=== PATIENT | female | born 1955 | race Caucasian/White ===

== ENCOUNTER 2019-07-09 14:07 | Outpatient (CLI) | payer BC ==
[~2019-07-09] VITALS: Ht 172 cm; Wt 126.9 kg
[2019-07-09] MEDS ORDERED: AMLO5TAB9 PO (14:18)
[2019-07-09] MEDS ORDERED: PRAV40TA2 PO (14:18)
[2019-07-09] MEDS ORDERED: VILA40TA PO (14:18)
[2019-07-09] MEDS ORDERED: INSU100V37 SQ (14:18)
[2019-07-09] MEDS ORDERED: DULA1.5P2 SQ (14:18)
[2019-07-09] MEDS ORDERED: HYDR12.56 PO (14:18)
[2019-07-09] MEDS ORDERED: FENO145T26 PO (14:18)
[2019-07-09] MEDS ORDERED: LOSA50TA63 PO (14:18)
[2019-07-09 14:21] VITALS: BP 119/63
== END 2019-07-09 15:30 | disposition home or self-care (01) ==
LOC: PREOP 14:07
PROVIDERS: ATTEND Podiatrist Foot Surgery
DX: Z01.818 Encounter for other preprocedural examination (principal)
CPT/HCPCS: 87081

== ENCOUNTER 2019-07-18 06:11 | Day surgery (SDC) | payer BC, OTHER ==
--- NOTE | 2019-07-15 00:14 | HISTORY AND PHYSICAL ---
DATE OF SERVICE: CHIEF COMPLAINT: To have outpatient surgery by Dr. gAosto, bone spur, left foot. ALLERGIC TO MEDICATIONS: Denies. MEDICATIONS: Medications now on, pravastatin 40 mg, Trulicity 1.5/0.05 injection weekly, Tresiba 100 units, Viibryd 40 mg, fenofibrate 145 mg, amlodipine 5 mg, hydrochlorothiazide 12.5, losartan 50 mg. Has a CPAP machine setting 15. PAST SURGICAL HISTORY: Complete hysterectomy in 1988 tonsils at age 7, gallbladder 2007, numerous kidney stones on both sides, had lithotripsy. FAMILY HISTORY: Denies asthma, TB, diabetes, heart disease, lung disease or cancer. REVIEW OF SYSTEMS: HEAD: Admits to headache. Denies dizziness, fainting, has sleep apnea and uses a CPAP. EYES, EARS, NOSE AND THROAT: Denies diplopia, tinnitus and sore throat. RESPIRATORY: Denies asthma, TB, coughing and congestion. The patient admits to smoking; told to stop. CARDIOVASCULAR: Denies heart problems, chest pain and heart murmur. GASTROINTESTINAL: Appetite too much. Denies blood in stools, diarrhea or constipation, also vomiting. Hemoglobin A1c is 6.2. GENITOURINARY: Denies blood, pain or frequency. PHYSICAL EXAMINATION: GENERAL: The patient is a white female, well nourished, well developed and in no acute respiratory distress at rest. VITAL SIGNS: Pulse 72, blood pressure 130/80 and weight 281. EARS: No discharge. EYES: No conjunctivitis or icterus. THROAT: Noninflamed. NECK: Thyroid not enlarged. No abnormal cervical lymphadenopathy noted. HEART: Regular rate and rhythm. LUNGS: Clear to auscultation. ABDOMEN: Soft. Liver and spleen nonpalpable. EXTREMITIES: Has good dorsalis pulses. PLAN: The patient is okay to have surgery, will be on standby if has any problems. Job ID: [id number] DocumentID: [id number] Dictated Date: 07/14/2019 15:17:31 Legal Administrative Secretary Date: 07/14/2019 15:32:56 Dictated By: MICKEY EUGENE DO
[2019-07-18] VITALS (10 sets, daily range): BP systolic 105–145; BP diastolic 64–91
[~2019-07-18] VITALS: Ht 172 cm; Wt 126.9 kg
[~2019-07-18 06:11] MED LIST: AMLO5TAB9 PO; DULA1.5P2 SQ; FENO145T26 PO; HYDR12.56 PO; INSU100V37 SQ; LOSA50TA63 PO; PRAV40TA2 PO; VILA40TA PO
[2019-07-18] MEDS ORDERED: LACTATED RINGERS 1,000 ML IV PRN (06:44)
[2019-07-18] MEDS ORDERED: ceFAZolin INJECTION 1,000 MG in WATER (STERILE) FOR INJECTION 10 ML IV ONE (06:45)
[2019-07-18] MEDS ORDERED: CATHETER FLUSH 10 ML SYR IV PRN (07:00)
[2019-07-18] MEDS ORDERED: MEPIVACAINE (CARBOCAINE) 2% 50 ML VIAL ONE (07:11)
[2019-07-18] MEDS ORDERED: BUPIVACAINE 0.5% 30 ML (SENSORCAINE) VIAL ONE (07:12)
--- NOTE | 2019-07-18 07:38 | Progress Note-Pre Operative ---
Pre-Operative Progress Note H&P Reviewed The H&P was reviewed, patient examined and no changes noted. Date Seen by Provider: Jul 18, 2019 Time Seen by Provider: 07:31 Date H&P Reviewed: Jul 18, 2019 Time H&P Reviewed: 07:32 Pre-Operative Diagnosis: dorsal tarsal exostosis left foot MICKEY CHAVIRA DPM Jul 18, 2019 07:38
[2019-07-18] MEDS ORDERED: MIDAZOLAM 2 MG/2 ML (VERSED) VIAL ONE (07:41)
[2019-07-18] MEDS ORDERED: KETAMINE/NaCl 50 MG/5 ML SYRINGE (ED ONLY) ONE (07:43)
[2019-07-18] MEDS ORDERED: PROPOFOL INJECTION 50 ML IV ONE (08:06)
[2019-07-18] MEDS ORDERED: SEVOFLURANE (ULTANE) 15 ML INHAL SOLN ONE ×3 (08:06→08:50)
[2019-07-18] MEDS ORDERED: fentaNYL INJECTION 100 MCG/2 ML AMP ONE (08:12)
[2019-07-18] MEDS ORDERED: DEXAMETHASONE 10 MG/ML (DECADRON) 1 ML VIAL ONE (08:23)
[2019-07-18] MEDS ORDERED: ONDANSETRON 4 MG/2 ML (SDV) Z0FRAN ONE (08:50)
[2019-07-18] MEDS ORDERED: LACTATED RINGERS 1,000 ML IV SCH (08:50)
--- NOTE | 2019-07-18 08:50 | Progress Note-Post Operative ---
Post-Operative Progess Note Surgeon (s)/Roofing Laborer (s) Surgeon MICKEY CHAVIRA DPM Roofing Laborer: NONE Pre-Operative Diagnosis dorsal tarsal exostosis left foot Post-Operative Diagnosis SAME Procedure & Operative Findings Date of Procedure 07/18/19 Procedure Performed/Findings BONE SPUR LEFT FOOT Anesthesia Type GENERAL WITH INFILTRATION Estimated Blood Loss Estimated blood loss (mL): MIN Specimens/Packing Specimens Removed NONE Packing: NONE MICKEY CHAVIRA DPM Jul 18, 2019 08:49
[2019-07-18] MEDS ORDERED: HYDROcodone/APAP 5 MG/325 MG (LORTAB) TAB PO PRN (09:00)
[2019-07-18] MEDS ORDERED: HYDR-3870 PO (09:01)
--- NOTE | 2019-07-18 09:53 | Diagnostic Imaging Report ---
INDICATION: Postoperative evaluation COMPARISON: None available TECHNIQUE: 2 radiographs of the left foot dated 07/18/2019. FINDINGS: No acute fracture or dislocation. No destructive osseous process. Mild scattered degenerative changes, greatest involving the 1st MTP joint. Mild soft tissue gas is noted involving the dorsal aspect of the midfoot. Moderate sized posterior and plantar calcaneal enthesophytes. No suspicious radiopaque foreign body. IMPRESSION: 1. No acute osseous abnormality or suspicious radiopaque foreign body. 2. Soft tissue gas involving the dorsum of the midfoot, which is favored to be postsurgical in nature. No suspicious radiopaque foreign body. 3. Additional findings, as above. Dictated by: Dictated on workstation # [id number]
--- NOTE | 2019-07-18 11:31 | Anesthesia-General Post-Op ---
General Patient Condition Mental Status/LOC: Same as Preop Cardiovascular: Satisfactory Nausea/Vomiting: Absent Respiratory: Satisfactory Pain: Controlled Complications: Absent Post Op Complications Complications None Follow Up Care/Instructions Patient Instructions None needed. Anesthesia/Patient Condition Patient Condition Patient is doing well, no complaints, stable vital signs, no apparent adverse anesthesia problems. No complications reported per nursing. KOFFI HELM CRNA Jul 18, 2019 11:31
--- NOTE | 2019-07-18 11:40 | Physical Therapy Ortho Eval ---
PT Orthopedic Evaluation Type of Surgery dorsal tarsal exostosis left foot Prior Level of Function Current Living Status: Spouse Locomotion (Upon Admit): Independent Established Durable Medical Eq: Straight Cane Subjective Subjective Patient sitting EOB pre tx, agrees to PT, has 5/10 pain in left foot. WBAT LLE Entry Into Home: Stairs Without Railing Steps Into Home: 2 Motor Control Motor Control: Motor Control WNL ROM ROM: WFL Transfer Transfers (B, C, W/C) (FIM): 4 Gait Right Lower Extremity: Right Weight Bearing Status RLE: Weight Bearing/Tolerated Left Lower Extremity: Left Weight Bearing Status LLE: Weight Bearing/Tolerated Summary/Comments Patient ambulated 200' without an assistive device with SBA, she has a slight limp but otherwise ambulated without difficulty. Advised patient to use a SPC at home. Patient also went up and down 1 step without an assistive device with SBA and cues for foot placement. Treatment Rendered Treatment: Therapeutic Exercises, Gait Train, Step Train Exercise Instruction: Heel Slides, Ankle Pumps Assessment/Goals Goal Time Frame: 1 Visit Understands HEP: Yes Safe Ambulation: Yes Plan Treatment Plan: Discharge PT/Family Agrees to Plan: Yes Time Time In: 1101 Time Out: 1110 Total Billed Treatment Time: 9 Billed Treatment Time 1 visit ABISAI Rodriguez' POOJA SEGOVIA PT Jul 18, 2019 11:40
--- NOTE | 2019-07-18 14:02 | OPERATIVE REPORT ---
DATE OF SERVICE: 07/18/2019 PREOPERATIVE DIAGNOSIS: Dorsal metatarsal cuneiform exostosis and/or tarsal bossing, left foot. POSTOPERATIVE DIAGNOSIS: Dorsal metatarsal cuneiform exostosis and/or tarsal bossing, left foot. NAME OF OPERATION: Exostectomy and excision of tarsal bossing, left foot. DESCRIPTION OF PROCEDURE: With the patient in supine position, having been affected by regional anesthetic utilizing 9 mL of a 50:50 mixture of 0.5% Marcaine plain and 1% Carbocaine plain with anesthesia assist that converted to general. Sterile prep and drape were performed. Phil bandage was applied above the level of the left ankle. A 6 cm curvilinear incision was made over the dorsal aspect of the second metatarsal cuneiform articulation. This incision was deepened with blunt dissection. Vital structures identified and retracted. Dissection was carried deep to the capsular structures and capsule and periosteum were reflected medially and laterally. There was a well-developed dorsal exostosis that was noted at the second cuneiform and second metatarsal base. This was resected in toto and remaining bone surface rasped smooth. The area was flushed with copious amounts of saline, inspected for any other anatomical abnormalities, none were noted. Deep closure was accomplished via continuous suture, 4-0 Vicryl. Superficial fascia closed with continuous suture of 4-0 Vicryl and skin closed with continuous subcuticular suture of 4-0 Vicryl and Dermabond. Adaptic and a sterile corrective compressive wet to dry Betadine dressing were applied, carried above the level of the left ankle covered with circular Coban. The patient tolerated the procedure well with minimal blood loss, left the OR to PAR in apparent good condition. She was also given Decadron into the operative site to control postoperative pain and swelling. She was given Rx for Lortab 5, #21 q.4-6 hours p.r.n. foot pain, is to be seen in the office in two weeks for appropriate followup care. Job ID: [id number] DocumentID: [id number] Dictated Date: 07/18/2019 08:58:56 Utility System Repairer Date: 07/18/2019 14:01:53 Dictated By: MICKEY CHAVIRA DPM
--- OUTSIDE RECORDS SUMMARY | 2019-07-19 22:40 | XMS REPORT | CCD ---
Author Author HARPREET CASPER Organization Unknown Address [address] [place], [place] [id number] Care Team Providers Care Physician Office Secretary Name Role Phone LISA RODAS DO [place] Attphys Vital Signs Vital Sign Value Unit Date/Time Recent/I nitial? Weight Measured 300 lbs 01/13/2016 13:14 Initial VS Height 68 in 01/13/2016 13:14 Initi al VS BMI (Body Mass Index) 45.61 kg/m^2 01/13/2016 13 :14 Initial VS BSA (Body Surface Area) 2.56 m^2 01/13/2016 13:14 Initial VS Allergies Allergy Code Allergy Type Reaction Status No Known Allergies 0 No known allergies Active Procedures Procedure Code Procedure Type Date Esophagogastroduodenoscopy, flexible, tr ansoral; with biopsy, [place] 39920 CPT 01/24/2016 Colonoscopy, flexible; with biopsy, single or multiple 54434 CPT 01/24/2016 Colonoscopy, flexible; with removal of t umor(s), polyp(s), or other lesion 59435 CPT 01/24/2016 BLOOD COLLECTION [id number] [facility] 6 PATHOLOGY ORDER [id number] [facility] CT 01/24/2016 BASIC METABOLIC PANEL [id number] [facility] CT 01/05 CBC W/ AUTO DIFF (RFLX MAN DIFF IF IND) [id number] [facility] 01/24/2016 ^CBC W/AUTO DIFF [id number] [facility] 6 History of Immunizations Unknown or Not Available. Problems Unknown or Not Available. Results BASIC METABOLIC PANEL - Collect Date/Keyshawn e: 01/24/2016 09:15 Test Name Code Test Result Test Units Beata t Ref Range GLUCOSE 2345-7 140 MG/DL L=70 H=1 00 SODIUM 2951-2 141 MEQ/L L=135 H=14 8 POTASSIUM 2823-3 3.7 MEQ/L L=3.5 H =5.3 CHLORIDE 2075-0 102 MEQ/L L=96 H= 110 CO2 2028-9 29 MEQ/L L=22 H=29 BUN 3094-0 12 MG/DL L=8 H=22 CREATININE 2160-0 0.9 MG/DL L=0.6 H=1.6 CALCIUM 23655-3 9.0 MG/DL L=8.2 H= 10.6 AGE 60 yrs GFR NonAA 64 GFR AA 78 eGFR >60 N/A eGFR AA* >60 N/A CBC W/ AUTO DIFF (RFLX MAN DIFF IF IND) - Collect Date/Time: 01/24/2016 09:15 Test Name Code Test Result Test Units Beata t Ref Range WBC 73358-6 7.2 TH/CMM L=4.5 H=1 0.8 RBC 789-8 4.17 ML/CMM L=4.20 H=5. 40 HGB 718-7 13.9 G/DL L=12.0 H=16 .0 HCT 4544-3 43.3 % L=37.0 H=47 .0 MCV 104 FL L=81 H=99 MCH 33.3 PG L=27.0 H=33 .0 MCHC 32.1 G/DL L=31.0 H=36 .0 RDW SD 51 FL L=36 H=50 RDW CV 13.3 % L=0.0 H=14 .8 MPV 8.6 FL L=9.3 H=12 .5 PLT 777-3 202 TH/CMM L=130 H=44 0 NRBC# 0.00 TH/CMM L=0.00 H=0. 00 NRBC% 0.0 /100WBC L=0.0 H=2 .0 %NEUT 73.5 % %LYMP 19.0 % %MONO 6.0 % %EOS 0.8 % %BASO 0.4 % #NEUT 5.27 TH/CMM L=2.10 H=8. 20 #LYMP 1.36 TH/CMM L=0.90 H=5. 20 #MONO 0.43 TH/CMM L=0.16 H=1. 00 #EOS 0.06 TH/CMM L=0.00 H=0. 80 #BASO 0.03 TH/CMM L=0.00 H=0. 20 MANUAL DIFF NOT IND N/A Active Medications No Active Medications Medications Administered During Visit Unknown or Not Available. Encounters Encounter Diagnosis Diagnosis Code Start Date Epigastric pain R1013 01/24/2016 Social History Smoking Status Code Start Date End Date Current every day smoker [id number] Patient Decision Aids Patient Decision Aid EGD AND/OR COLONOSCOPY; AFTER THE PROCED URE Discharge Instructions You were admitted to [facility] on 01/24/2016 06:14 with a principal diagnosis of Epigastric pain You had the following procedures done: Esophagogastroduodenoscopy, flexible, transoral; with biopsy, single or mu Colonoscopy, flexible; with biopsy, single or multiple Colonoscopy, flexible; with removal of tumor(s), polyp(s), or other lesion You had the following tests done: BASIC METABOLIC PANEL CBC W/ AUTO DIFF (RFLX MAN DIFF IF IND) You were discharged from [facility] on 01/24/2016 13:37 Should you have any questions prior to discharge, please contact a member of your healthcare team. If you have left the hospital and have any questions, please contact your primary care physician. Chief Complaint and Reason For Visit Chief Complaint Date of Onset GEN EGD CSCOPE Function Status Unknown or Not Available. Plan of Care Unknown or Not Available. Referral/Transition of Care Unknown or Not Available.
--- OUTSIDE RECORDS SUMMARY | 2019-07-19 22:41 | XMS REPORT ---
Author Author Kendra Sparrow Organization [facility] Address [address] [place], [place] [id number] Care Team Providers Care Reservationist Name Role Phone Cathi Sparrow PCP Cathi Sparrow PreferredProvider Allergies and Adverse Reactions Name Reaction Notes NO KNOWN DRUG ALLERGIES Plan of Treatment Planned Activity Comments Planned Date Planned Time Plan/Goal Polysomnography 08/24/2015 12:00 AM Ova + parasites stool 07/18/2017 12:00 AM Medications Active Name Start Date Estimated Completion Date SIG Co mments irbesartan-hydrochlorothiazide 150-12.5 mg oral tablet 8 TAKE 1 TABLET BY MOUTH ONCE DAILY Vitamin D2 50,000 unit oral capsule 07/17/2018 take 1 capsule (50,000 unit) by oral route once weekly amlodipine 5 mg oral tablet 10/14/2018 TAKE 1 TABLET BY MOUTH ONCE DAILY Trulicity 1.5 mg/0.5 mL subcutaneous pen injector inject 0.5 milliliter (1.5 mg) by subcutaneous route every 7 days on Sunday in the abdomen, thigh, or upper arm rotating injection sites Tresiba FlexTouch U-100 100 unit/mL (3 mL) subcutaneous insulin pen inject 14 units by subcutaneous route every night. Viibryd 40 mg oral tablet 05/21/2019 TAKE 1 TABLET BY MOUTH ONCE DAILY WITH FOOD Name Start Date Expiration Date SIG Comments Bactrim DS 800-160 mg oral tablet 09/03/2014 09/10/2014 take 1 tablet by oral route 2 times a day for 7 days cetirizine 10 mg oral tablet 06/03/2015 davina e 1 tablet (10 mg) by oral route once daily Singulair 10 mg oral tablet 06/03/2015 05/28/2016 take 1 tablet (10 mg) by oral route once daily in the evening for 30 days gabapentin 100 mg oral capsule 06/03/2015 T WILLIAM ONE CAPSULE BY MOUTH THREE TIMES DAILY losartan 50 mg oral tablet 06/03/2015 TAKE ONE TABLE T BY MOUTH ONCE DAILY ProAir RespiClick 90 mcg/actuation inhalation aerosol powdr breath activated 06/08/2015 inhale 1 - 2 puffs (90 - 180 mcg) by inhalation route every 4-6 hours as needed Symbicort 160-4.5 mcg/actuation inhalation HFA aerosol inhaler inhale 2 puffs by inhalation route 2 times per day in the morning and evening Cipro 500 mg oral tablet 12/14/2016 12/21/2016 take 1 tablet (500 mg) by oral route 2 times per day for 7 days Crestor 10 mg oral tablet 12/14/2016 03/14/2017 take 1 tablet (10 mg) by oral route once daily at bedtime for 30 days doxycycline monohydrate 100 mg oral tablet 06/04/2017 take 1 tablet (100 mg) by oral route 2 times per day for 7 days prednisone 20 mg oral tablet 06/04/2017 take 2 table ts daily x5 days Bevespi Aerosphere 9-4.8 mcg inhalation HFA aerosol inhaler 06/04 inhale 2 puffs by inhalation route 2 times per day in the morning and evening ProAir HFA 90 mcg/actuation inhalation HFA aerosol inhaler 2017 inhale 1 puff (90 mcg) by inhalation route every 6 hours as needed Trulicity 0.75 mg/0.5 mL subcutaneous pen injector 07/10/2017 INJECT 0.5 ML (0.75MG) SUBCUTANEOUSLY EVERY 7 DAYS IN THE ABDOMEN, THIGH OR UPPER ARM, ROTATING INJECTION SITES famotidine 20 mg oral tablet davina e 1 tablet (20 mg) by oral route once daily at bedtime Suprep Bowel Prep Kit 17.5-3.13-1.6 gram oral recon soln 8 take as directed Lopid 600 mg oral tablet 04/03/2018 05/03/2018 take 1 tablet (600 mg) by oral route 2 times per day 30 minutes before morning and evening meal for 30 days nystatin 100,000 unit/gram topical powder 05/08/2018 019 apply to the skin folds of the abdomen by topical route 3 times per day nystatin-triamcinolone 100,000-0.1 unit/gram-% topical ointm ent 05/14/2018 05/21/2018 apply to the affected area(s) by topical route 3 times per day clotrimazole 10 mg mucous membrane herminio 05/16/2018 019 take 1 tablet (10 mg) dissolved slowly in the mouth by oral route 5 times per day for 14 days doxycycline monohydrate 100 mg oral tablet 05/21/20192019 take 1 tablet by oral route 2 times a day for 7 days Discontinued Name Start Date Discontinued Date SIG Comments Hyzaar 100-12.5 mg oral tablet 03/18/2012 t william 1 tablet by oral route once daily simvastatin 80 mg oral tablet 03/18/2012 ta ke 1 tablet (80 mg) by oral route once daily in the evening Aleve 220 mg oral tablet 03/18/2012 take 1 tablet (220 mg) by oral route every 12 hours as needed Fluoxetine Oral 20 mg Oral Capsule 03/18/2012 one ev davidson other day fiber laxative 03/18/2012 one every other day Mobic 15 mg oral tablet 06/24/2013 take 1 t ablet (15 mg) by oral route once daily Zanaflex 4 mg oral capsule 06/24/2013 may take 1 tab let every 8hrs prn Cymbalta 30 mg oral capsule,delayed release(DR/EC) 03/18/2012 06/24/2013 take 1 capsule by oral route once a day (before a meal) Percocet 5-325 mg oral tablet 03/19/2012 06/24/2013 ta ke 1 tablet by oral route every 6 hours as needed fluoxetine 40 mg oral capsule 06/24/2013 ta ke 1 capsule (40 mg) by oral route once daily in the morning switch to Viibryd simvastatin 40 mg oral tablet 06/24/2013 07/29/2014 ta ke 1 tablet (40 mg) by oral route once daily in the evening meloxicam 15 mg oral tablet 11/04/2013 07/29/2014 take 1 tablet (15 mg) by oral route once daily Protonix 40 mg oral tablet,delayed release (DR/EC) 11/25/2013 07/29/2014 take 1 tablet (40 mg) by oral route once daily Claritin 10 mg oral tablet 11/25/2013 03/30/2014 take 1 tablet (10 mg) by oral route once daily losartan 50 mg oral tablet 01/21/2014 03/30/2014 TAKE ONE TABLET BY MOUTH EVERY DAY hydrocodone-acetaminophen 5-325 mg oral tablet 02/26/2014 take 1 tablet by oral route every 6 hours as needed for pain Claritin 10 mg oral tablet 09/03/2014 06/03/2015 take 1 tablet (10 mg) by oral route once daily Singulair 10 mg oral tablet 09/03/2014 06/03/2015 take 1 tablet (10 mg) by oral route once daily in the evening Diflucan 150 mg oral tablet 06/17/2015 06/24/2015 take 1 tablet (150 mg) by oral route once famotidine 10 mg oral tablet 08/03/2016 davina e 2 tablets (20 mg) by oral route every 12 hours Lipitor 40 mg oral tablet 08/17/2016 12/14/2016 take 1 tablet (40 mg) by oral route once daily at bedtime Invokamet XR 150-1,000 mg oral tablet, IR - ER, biphasic 24h r 01/25/2018 05/21/2019 TAKE 2 TABLETS BY MOUTH ONCE DAILY IN THE MORNING W ITH A MEAL pantoprazole 40 mg oral tablet,delayed release (DR/EC) 05/08/2018 take 1 tablet (40 mg) by oral route once daily for 30 days Diflucan 150 mg oral tablet 04/12/2018 05/08/2018 take 1 tablet (150 mg) by oral route once nystatin 100,000 unit/mL oral suspension 05/16/2018 05/16/19 19 take 5 milliliters (500,000 unit) by oral route 4 times per day med not available at pharmacy gemfibrozil 600 mg oral tablet 11/08/2018 05/21/2019 T WILLIAM 1 TABLET BY MOUTH TWICE DAILY 30 MINUTES BEFORE MORNING AND EVENING MEALS Problem List Description Status Onset Osteoarthritis Active 09/03/2014 Hypercholesterolemia Active 09/03/2014 Morbid obesity Active 09/03/2014 Abdominal pain Active 01/11/2016 Abdominal pain Active 01/11/2016 Dyspepsia Active 01/11/2016 History of colon polyps Active 01/11/2016 Nephrolithiasis Active 01/11/2016 STEPHANIE (obstructive sleep apnea) Active 08/07/2016 Chronic obstructive pulmonary disease, unspecified COPD type Active 08/07/2016 Hyperglycemia Active 08/07/2016 Major depressive disorder with single episode, in partial re mission Active 08/07/2016 Essential hypertension Active 08/17/2016 Uncontrolled type 2 diabetes mellitus wi thout complication, without long-term current use of insulin Active 08/17/2016 Mixed hyperlipidemia Active 08/17/2016 GERD (gastroesophageal reflux disease) Active 0 12/10/2017 Chronic cough Active 12/10/2017 Change in bowel habit Active 12/10/2017 Abdominal pain Active 12/10/2017 Vital Signs Date Time BP-Sys(mm[Hg] BP-Maggy(mm[Hg]) HR(bpm) RR(rpm) Temp WT HT HC BMI BSA BMI Percentile O2 Sat(%) 05/21/2019 3:09:00 PM 120 mm[Hg] 68 mm[Hg] 93 {beats}/min 20 rpm 97.7 F 275 lbs 68 in 41.8132 kg/m2 2.4464 m2 95 % 05/08/2018 1:35:00 PM 120 mm[Hg] 66 mm[Hg] 97 {beats}/min 97.5 F 283 lbs 68 in 43.03 kg/m2 2.48 m2 04/02/2018 9:01:00 AM 128 mm[Hg] 72 mm[Hg] 94 {beats}/min 18 rpm 97.8 F 299 lbs 68 in 45.4623 kg/m2 2.5509 m2 98 % 12/05/2017 4:27:00 PM 130 mm[Hg] 70 mm[Hg] 91 {beats}/min 20 rpm 96.8 F 302 lbs 68 in 45.92 kg/m2 2.56 m2 06/04/2017 10:27:00 AM 128 mm[Hg] 72 mm[Hg] 102 {beats}/min 20 rpm 98.4 F 294 lbs 68 in 44.7021 kg/m2 2.5295 m2 95 % 12/14/2016 9:36:00 AM 128 mm[Hg] 70 mm[Hg] 100 {beats}/min 18 rpm 98.1 F 277 lbs 68 in 42.12 kg/m2 2.46 m2 95 % 08/17/2016 1:51:00 PM 136 mm[Hg] 74 mm[Hg] 93 {beats}/min 18 rpm 97.3 F 292 lbs 68 in 44.398 kg/m2 2.5208 m2 96 % 08/03/2016 9:52:00 AM 118 mm[Hg] 70 mm[Hg] 114 {beats}/min 18 rpm 97.1 F 295.125 lbs 68 in 44.87 kg/m2 2.53 m2 95 % 01/07/2016 9:56:00 AM 144 mm[Hg] 77 mm[Hg] 89 {beats}/min 20 rpm 97.5 F 302 lbs 68 in 45.92 kg/m2 2.56 m2 06/24/2015 3:35:00 PM 180 mm[Hg] 100 mm[Hg] 100 {beats}/min 98.3 F 310.5 lbs 69 in 45.8524 kg/m2 2.6185 m2 06/08/2015 2:01:00 PM 138 mm[Hg] 76 mm[Hg] 97 {beats}/min 18 rpm 97.1 F 313.375 lbs 71 in 43.71 kg/m2 2.67 m2 96 % 06/03/2015 8:43:00 AM 132 mm[Hg] 82 mm[Hg] 91 {beats}/min 20 rpm 97.3 F 313 lbs 71 in 43.6542 kg/m2 2.6669 m2 96 % 10/02/2014 9:32:00 AM 148 mm[Hg] 102 mm[Hg] 124 {beats}/min 18 rpm 97.8 F 318 lbs 71 in 44.35 kg/m2 2.69 m2 09/03/2014 11:11:00 AM 140 mm[Hg] 78 mm[Hg] 105 {beats}/min 18 rpm 98.3 F 312.5 lbs 68 in 47.515 kg/m2 2.6078 m2 97 % 07/29/2014 1:35:00 PM 132 mm[Hg] 84 mm[Hg] 74 {beats}/min 20 rpm 97.5 F 308 lbs 68 in 46.83 kg/m2 2.59 m2 06/24/2014 8:39:00 AM 152 mm[Hg] 84 mm[Hg] 73 {beats}/min 18 rpm 96.5 F 312 lbs 68 in 47.439 kg/m2 2.6057 m2 04/27/2014 1:13:00 PM 158 mm[Hg] 86 mm[Hg] 88 {beats}/min 18 rpm 97.5 F 307 lbs 68 in 46.68 kg/m2 2.58 m2 03/30/2014 8:29:00 AM 132 mm[Hg] 88 mm[Hg] 81 {beats}/min 18 rpm 97.8 F 310.5 lbs 68 in 47.2109 kg/m2 2.5995 m2 02/26/2014 10:48:00 AM 150 mm[Hg] 100 mm[Hg] 103 {beats}/min 18 rpm 96. 8 F 310 lbs 70 in 44.48 kg/m2 2.64 m2 96 % 11/25/2013 3:01:00 PM 142 mm[Hg] 80 mm[Hg] 102 {beats}/min 18 rpm 97.8 F 300.125 lbs 68 in 45.6334 kg/m2 2.5557 m2 98 % 06/30/2013 9:00:00 AM 138 mm[Hg] 76 mm[Hg] 97 {beats}/min 18 rpm 96.7 F 283.562 lbs 68 in 43.12 kg/m2 2.48 m2 98 % 06/24/2013 9:10:00 AM 142 mm[Hg] 84 mm[Hg] 91 {beats}/min 18 rpm 97.3 F 282.125 lbs 68 in 42.8965 kg/m2 2.4778 m2 97 % 06/03/2012 10:06:00 AM 154 mm[Hg] 92 mm[Hg] 88 {beats}/min 20 rpm 97.1 F 274 lbs 68 in 41.66 kg/m2 2.44 m2 03/18/2012 3:04:00 PM 144 mm[Hg] 82 mm[Hg] 88 {beats}/min 18 rpm 97.8 F 288 lbs 68 in 43.7898 kg/m2 2.5035 m2 11/23/2009 10:55:00 AM 120 mm[Hg] 80 mm[Hg] 64 {beats}/min 18 rpm 96.7 F 256 lbs Social History Name Description Comments 30 yrs GED Tobacco Use smokes pack a day of cigarettes for 30 years 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 Tobacco Current every day smoker History of Procedures Date Ordered Description Order Status 06/03/2015 12:00 AM COMPREHEN METABOLIC PANEL Reviewed 06/08/2015 12:[address] THORAX W/O & W/DYE Reviewed 06/09/2015 12:00 AM SPECIMEN HANDLING OFFICE-LAB Reviewed 06/09/2015 12:00 AM CYTOPATH C/V THIN LAYER Reviewed 06/09/2015 12:00 AM MAMMOGRAM BOTH BREASTS Reviewed 06/11/2015 12:00 AM TTE W/DOPPLER COMPLETE Reviewed 06/24/2015 12:00 AM EXAM OF VAGINA W/SCOPE Reviewed 06/24/2015 12:00 AM DRAINAGE OF SKIN ABSCESS Reviewed 06/24/2015 12:00 AM DRAINAGE OF SKIN ABSCESS Reviewed 08/03/2016 12:00 AM METABOLIC PANEL TOTAL CA Reviewed 08/03/2016 12:00 AM LIPID PANEL Reviewed 08/03/2016 12:00 AM GLYCOSYLATED HEMOGLOBIN TEST Reviewed 08/03/2016 12:00 AM ASSAY THYROID STIM HORMONE Reviewed 12/14/2016 12:00 AM COMPREHEN METABOLIC PANEL Reviewed 12/14/2016 12:00 AM LIPID PANEL Reviewed 12/14/2016 12:00 AM GLYCOSYLATED HEMOGLOBIN TEST Reviewed 03/18/2012 12:00 AM COMPLETE CBC W/AUTO DIFF WBC Reviewed 03/18/2012 12:00 AM COMPREHEN METABOLIC PANEL Reviewed 03/18/2012 12:00 AM LIPID PANEL Reviewed 03/18/2012 12:00 AM GLYCOSYLATED HEMOGLOBIN TEST Reviewed 03/18/2012 12:00 AM ASSAY THYROID STIM HORMONE Reviewed 03/18/2012 12:00 AM VITAMIN B-12 Reviewed 06/04/2017 12:00 AM FECES CULTURE AEROBIC BACT Reviewed 06/04/2017 12:00 AM LEUKOCYTE ASSESSMENT FECAL Reviewed 06/03/2012 12:[address] THORAX W/O & W/DYE Reviewed 06/03/2012 12:00 AM Rocephin 1 gram [facility]#8580-1632-08 Reviewe d 04/02/2018 12:00 AM COMPLETE CBC W/AUTO DIFF WBC Reviewed 04/02/2018 12:00 AM COMPREHEN METABOLIC PANEL Reviewed 04/02/2018 12:00 AM LIPID PANEL Reviewed 04/02/2018 12:00 AM GLYCOSYLATED HEMOGLOBIN TEST Reviewed 04/02/2018 12:00 AM ASSAY THYROID STIM HORMONE Reviewed 04/02/2018 12:00 AM VITAMIN D 25 HYDROXY Reviewed 04/02/2018 12:00 AM EXTRACRANIAL BILAT STUDY Reviewed 04/02/2018 12:[address] HEAD/BRAIN W/O & W/DYE Reviewed 07/15/2018 12:00 AM COMPLETE CBC W/AUTO DIFF WBC Reviewed 07/15/2018 12:00 AM COMPREHEN METABOLIC PANEL Reviewed 07/15/2018 12:00 AM GLYCOSYLATED HEMOGLOBIN TEST Reviewed 07/15/2018 12:00 AM LIPID PANEL Reviewed 07/17/2018 12:00 AM VITAMIN D 25 HYDROXY Reviewed 06/30/2013 12:00 AM CYTOPATH C/V MANUAL Reviewed 06/30/2013 12:00 AM MAMMOGRAM BOTH BREASTS Reviewed 05/21/2019 12:00 AM CUL BACT XCPT URINE BLOOD/STOOL AEROBIC ISOL Returned 03/02/2014 12:[address] SOFT TISSUE NECK W/DYE Reviewed 03/02/2014 12:[address] MAXILLOFACIAL W/O DYE Reviewed 03/30/2014 12:00 AM MRI LUMBAR SPINE W/O DYE Reviewed Results Summary Date and Description Results 03/19/2012 8:15 AM WBC 7.0 RBC 4.56 HGB 15.20 g /dLHCT 45.30 %MCV 99.0 fLMCH 33.30 pgMCHC 33.60 g/dLRDW SD 47 RDW CV 12.80 %MPV 9.40 fLPLT 267 NRBC# 0.00 NRBC% 0.0 %NEUT 70.10 %%LYMP 21.60 %%MONO 6.80 %%EOS 1.40 %%BASO 0.10 %#NEUT 4.93 #LYMP 1.52 #MONO 0.48 #EOS 0.10 #BASO 0.01 MANUAL DIFF NOT IND GLUCOSE 144.0 mg/dLSODIUM 139.0 mmol/LPOTASSIUM 3.80 mmol/LCHLORIDE 105.0 mmol/LCO2 24.0 mmol/LBUN 17.0 mg/dLCREATININE 1.0 mg/dLSGOT/AST 13.0 IU/LSGPT/ALT 18.0 IU/LALK PHOS 94.0 IU/LTOTAL PROTEIN 6.80 g/dLALBUMIN 4.10 g/dLTOTAL BILI 0.50 mg/dLCALCIUM 9.50 mg/dLAGE 57 GFR NonAA 58 GFR AA 70 eGFR 58 eGFR AA* 60 TRIGLYCERIDES 194.0 mg/dLCHOLESTEROL 219.0 mg/dLHDL 39.0 mg/dLTOT CHOL/HDL 5.6 LDL (CALC) 141.0 mg/dLVITAMIN B12 464.0 pg/mLTSH 1.630 uIU/mLGLYCOHEMOGLOBIN A1C 6.10 % 03/30/2014 9:40 AM Treatment/Therapy TPI by Dr. Scott to RL back. used shirley, 1% lido 06/09/2015 8:10 AM GLUCOSE 143.0 mg/dLSODIUM 14 2.0 mmol/LPOTASSIUM 3.80 mmol/LCHLORIDE 105.0 mmol/LCO2 27.0 mmol/LBUN 13.0 mg/dLCREATININE 0.80 mg/dLSGOT/AST 16.0 IU/LSGPT/ALT 25.0 IU/LALK PHOS 101.0 IU/LTOTAL PROTEIN 6.60 g/dLALBUMIN 4.0 g/dLTOTAL BILI 0.50 mg/dLCALCIUM 8.90 mg/dLAGE 60 GFR NonAA 74 GFR AA 90 eGFR >60 mL/min/1.73 m2eGFR AA* >60 08/17/2016 8:05 AM HGB A1C 12.80 %Est Avg Gluco se 320.7 mg/dLTRIGLYCERIDES 514.0 mg/dLCHOLESTEROL 228.0 mg/dLHDL 34.0 mg/dLTOT CHOL/HDL 6.7 LDL (CALC) INVALID mg/dLGLUCOSE 359.0 mg/dLSODIUM 139.0 mmol/LPOTASSIUM 3.50 mmol/LCHLORIDE 100.0 mmol/LCO2 25.0 mmol/LBUN 15.0 mg/dLCREATININE 1.10 mg/dLCALCIUM 8.90 mg/dLAGE 61 GFR NonAA 51 GFR AA 62 eGFR 51 eGFR AA* >60 TSH 1.30 uIU/mL 12/14/2016 10:15 AM TRIGLYCERIDES 146.0 mg/dLCHO LESTEROL 181.0 mg/dLHDL 35.0 mg/dLTOT CHOL/HDL 5.2 LDL (CALC) 117.0 mg/dLGLUCOSE 110.0 mg/dLSODIUM 139.0 mmol/LPOTASSIUM 4.50 mmol/LCHLORIDE 104.0 mmol/LCO2 21.0 mmol/LBUN 18.0 mg/dLCREATININE 1.0 mg/dLSGOT/AST 20.0 IU/LSGPT/ALT 21.0 IU/LALK PHOS 105.0 IU/LTOTAL PROTEIN 7.30 g/dLALBUMIN 4.20 g/dLTOTAL BILI 0.60 mg/dLCALCIUM 9.10 mg/dLAGE 61 GFR NonAA 57 GFR AA 69 eGFR 57 eGFR AA* >60 HGB A1C 6.20 %Est Avg Glucose 131.2 mg/dL 07/16/2017 2:58 PM WBC STOOL FEW WBC SEEN 11/13/2017 12:58 PM PQRS 14 Diabetic Eye Exam Di abetic eye exam performed/documented/reviewed 04/02/2018 10:20 AM GLUCOSE 169 SODIUM 142 POTAS SIUM 3.5 CHLORIDE 107.0 mmol/LCO2 24 BUN 13.0 mg/dLCREATININE 1.10 mg/dLSGOT/AST 17 SGPT/ALT 23 ALK PHOS 88 TOTAL PROTEIN 7.6 ALBUMIN 4.4 TOTAL BILI 0.6 CALCIUM 9.30 mg/dLAGE 63 GFR NonAA 50 GFR AA 61 eGFR 50 eGFR AA* >60 mL/min/1.73 m2WBC 7.5 RBC 4.72 HGB 16.40 g/dLHCT 49.40 %MCV 105.0 fLMCH 34.70 pgMCHC 33.20 g/dLRDW SD 51 fLRDW CV 13.20 %MPV 8.90 fLPLT 218 NRBC# 0.00 NRBC% 0.0 %NEUT 70.0 %LYMP 21.3 %MONO 7.1 %EOS 0.8 %BASO 0.5 #NEUT 5.23 #LYMP 1.59 #MONO 0.53 #EOS 0.06 #BASO 0.04 MANUAL DIFF NOT IND TRIGLYCERIDES 207 CHOLESTEROL 193.0 mg/dLHDL 40 TOT CHOL/HDL 4.8 LDL (CALC) 112 HGB A1C 8.20 %Est Avg Glucose 188.6 TSH 2.11 VITAMIN D 12.3 07/16/2018 8:22 AM WBC 7.9 RBC 4.18 HGB 14.50 g /dLHCT 43.70 %MCV 105.0 fLMCH 34.70 pgMCHC 33.20 g/dLRDW SD 50 fLRDW CV 13.10 %MPV 9.0 fLPLT 293 NRBC# 0.00 NRBC% 0.0 %NEUT 71.5 %LYMP 19.9 %MONO 6.9 %EOS 1.0 %BASO 0.4 #NEUT 5.63 #LYMP 1.57 #MONO 0.54 #EOS 0.08 #BASO 0.03 MANUAL DIFF NOT IND HGB A1C 6.60 %Est Avg Glucose 142.7 TRIGLYCERIDES 101 CHOLESTEROL 179.0 mg/dLHDL 38 TOT CHOL/HDL 4.7 LDL (CALC) 121 GLUCOSE 94 SODIUM 141 POTASSIUM 3.9 CHLORIDE 106.0 mmol/LCO2 24 BUN 18.0 mg/dLCREATININE 1.10 mg/dLSGOT/AST 11 SGPT/ALT 14 ALK PHOS 82 TOTAL PROTEIN 6.8 ALBUMIN 4.0 TOTAL BILI 0.5 CALCIUM 9.60 mg/dLAGE 63 GFR NonAA 50 GFR AA 61 eGFR 50 eGFR AA* >60 mL/min/1.73 [id number] D 18.4 History Of Immunizations Not available. 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 Bronchitis, chronic Numbness and Tingling Rectal Bleeding Ganglion Nov 23 2009 10:57AM Osteoarthritis 09/03/2014 Hypercholesterolemia 09/03/2014 Morbid obesity 09/03/2014 Abdominal pain 12/10/2017 Dyspepsia 01/11/2016 History of colon polyps 01/11/2016 Nephrolithiasis 01/11/2016 STEPHANIE (obstructive sleep apnea) 08/07/2016 Chronic obstructive pulmonary disease, unspecified COPD type 08/07/2016 Hyperglycemia 08/07/2016 Major depressive disorder with single episode, in partial re mission 08/07/2016 Essential hypertension 08/17/2016 Uncontrolled type 2 diabetes mellitus wi thout complication, without long-term current use of insulin 08/17/2016 Mixed hyperlipidemia 08/17/2016 GERD (gastroesophageal reflux disease) 12/10/2017 Chronic cough 12/10/2017 Change in bowel habit 12/10/2017 Hyperglycemia Mar 18 2012 3:12PM Kidney Calculus Mar 18 2012 3:12PM Fatigue Mar 18 2012 3:12PM Depression and anxiety Mar 18 2012 3:12PM Bilateral Lung Nodules Mar 18 2012 3:12PM Bronchitis, Acute Jun 03 2012 10:11AM Bilateral Lung Nodules Jun 03 2012 10:11AM Hypertension Jun 24 2013 9:12AM Hyperlipidemia, unspecified Jun 24 2013 9:12AM Osteoarthritis Jun 24 2013 9:12AM Depression Jun 24 2013 9:12AM Fatigue Jun 24 2013 9:12AM Routine gynecological examination Jun 30 2013 9:02AM Allergic rhinitis Nov 25 2013 3:03PM Gastritis Nov 25 2013 3:03PM Dysphagia Feb 26 2014 10:51AM Chronic sinusitis Mar 02 2014 11:21AM Dysphagia Mar 02 2014 11:21AM Osteoarthritis Feb 26 2014 10:51AM Hypercholesterolemia Feb 26 2014 10:51AM Diverticulosis Of Colon Feb 26 2014 10:51AM Kidney stones Feb 26 2014 10:51AM Lumbar degenerative disc disease Mar 30 2014 8:31AM Myofascial pain Mar 30 2014 8:31AM Renal calculus or stone Mar 30 2014 8:31AM Myofascial pain Mar 30 2014 9:38AM Lumbar degenerative disc disease Apr 27 2014 1:17PM Myofascial pain Apr 27 2014 1:17PM Renal calculus or stone Apr 27 2014 1:17PM Lumbar spondylosis Jun 24 2014 8:41AM Lumbar degenerative disc disease Jun 24 2014 8:41AM Myofascial pain Jun 24 2014 8:41AM Sacroiliac dysfunction Jun 24 2014 8:41AM Lumbar spondylosis Jul 29 2014 1:45PM Lumbar degenerative disc disease Jul 29 2014 1:45PM Myofascial pain Jul 29 2014 1:45PM Sacroiliac dysfunction Jul 29 2014 1:45PM Hypertension Sep 03 2014 11:14AM Sinusitis, Acute Sep 03 2014 11:14AM Morbid obesity Sep 03 2014 11:14AM Osteoarthritis Sep 03 2014 11:14AM Hypercholesterolemia Sep 03 2014 11:14AM Depression Sep 03 2014 11:14AM Fatigue Sep 03 2014 11:14AM Myofascial pain Oct 02 2014 9:49AM Lumbar spondylosis Oct 02 2014 9:49AM Hypertension Jun 03 2015 8:47AM Hyperlipidemia, unspecified Jun 03 2015 8:47AM Depression Jun 03 2015 8:47AM Morbid obesity Jun 03 2015 8:47AM Neuropathy Jun 03 2015 8:47AM Screening Mammogram Jun 03 2015 10:09AM Cough Jun 03 2015 8:47AM Post-nasal discharge Jun 03 2015 8:47AM Chronic cough Jun 08 2015 7:09AM Lung nodules Jun 08 2015 7:09AM Routine gynecological examination Jun 08 2015 2:03PM Screening breast examination Jun 08 2015 2:03PM Chronic bronchitis, unspecified chronic bronchitis type Jun 08 2015 2:03PM Enlarged heart Jun 11 2015 8:17AM Pulmonary arterial hypertension Jun 11 2015 8:17AM Low grade squamous intraepithelial lesion (LGSIL) on P ap smear Jun 24 2015 3:39PM Sebaceous cyst of labia Jun 24 2015 3:39PM Snoring Aug 24 2015 3:57PM Depression Aug 24 2015 3:57PM Acute headache Aug 24 2015 3:57PM Fatigue Aug 24 2015 3:57PM Obesity Aug 24 2015 3:57PM Abdominal pain Jan 07 2016 10:03AM Dyspepsia Jan 07 2016 10:03AM Nephrolithiasis Jan 07 2016 10:03AM History of colon polyps Jan 07 2016 10:03AM Essential hypertension Aug 03 2016 9:56AM Hyperglycemia Aug 03 2016 9:56AM Major depressive disorder with single episode, in part ial remission Aug 03 2016 9:56AM Chronic obstructive pulmonary disease, unspecified NAILHEAD PUNCHER D type Aug 03 2016 9:56AM STEPHANIE (obstructive sleep apnea) Aug 03 2016 9:56AM Other fatigue Aug 03 2016 9:56AM Essential hypertension Aug 17 2016 1:53PM Uncontrolled type 2 diabetes mellitus wi thout complication, without long-term current use of insulin Aug 17 2016 1:53PM Mixed hyperlipidemia Aug 17 2016 1:53PM Morbid obesity due to excess calories Aug 17 2016 1:53PM Type 2 diabetes mellitus with hyperglycemia Dec 14 2016 9:3 8AM Essential hypertension Dec 14 2016 9:38AM Major depressive disorder with single episode, in part ial remission Dec 14 2016 9:38AM Mixed hyperlipidemia Dec 14 2016 9:38AM Morbid obesity Dec 14 2016 9:38AM STEPHANIE (obstructive sleep apnea) Dec 14 2016 9:38AM Diarrhea, unspecified type Dec 14 2016 9:38AM Left lower quadrant pain Dec 14 2016 9:38AM Simple chronic bronchitis Dec 14 2016 9:38AM Mucous in stools Jun 04 2017 10:28AM Acute bronchitis, unspecified organism Jun 04 2017 10:28AM Chronic obstructive pulmonary disease with acute exace rbation Jun 04 2017 10:28AM Diarrhea Jul 18 2017 5:51PM Chronic cough Dec 05 2017 4:30PM Change in bowel habit Dec 05 2017 4:30PM Abdominal pain Dec 05 2017 4:30PM GERD (gastroesophageal reflux disease) Dec 05 2017 4:30PM Diabetes Mellitus, Type II Apr 02 2018 9:02AM Shortness Of Breath Apr 02 2018 9:02AM Dizziness Apr 02 2018 9:02AM Fatigue Apr 02 2018 9:02AM Essential hypertension Apr 02 2018 9:02AM Memory changes Apr 02 2018 9:02AM Weakness Apr 02 2018 9:02AM Vitamin D deficiency Apr 02 2018 9:02AM GERD without esophagitis Apr 02 2018 9:02AM Candidiasis vulvovaginitis May 08 2018 1:40PM Yeast infection of the skin May 08 2018 1:40PM Obesity May 08 2018 1:40PM Hypertension Jul 15 2018 2:50PM Diabetes mellitus, type 2 Jul 15 2018 2:50PM Hyperlipidemia Jul 15 2018 2:50PM Low vitamin D level Jul 17 2018 1:22PM Abscess May 21 2019 3:11PM Essential hypertension May 21 2019 3:11PM Major depressive disorder with single episode, in part ial remission May 21 2019 3:11PM Payers Insurance Name Company Name Plan Name Plan Number Policy Number [place] Group Number Start Date [employer] [place] [id number] N/ A [employer] [id number] Sunday, 2012 [employer] [place] [id number] Mo 2011 [employer] [place] [id number] N/ A History of Encounters Visit Date Visit Type Provider 05/21/2019 Office visit Cathi Sparrow FLAME ANNEALING MACHINE OPERATOR 05/08/2018 Office visit Jaclyn quan FLAME ANNEALING MACHINE OPERATOR 04/02/2018 Office visit Cathi Sparrow FLAME ANNEALING MACHINE OPERATOR 12/10/2017 Surgery Austyn Day DO 12/05/2017 Office visit Austyn Day DO 06/04/2017 Office visit Cathi Sparrow FLAME ANNEALING MACHINE OPERATOR 12/14/2016 Office visit Cathi Sparrow FLAME ANNEALING MACHINE OPERATOR 08/17/2016 Office visit Cathi Sparrow FLAME ANNEALING MACHINE OPERATOR 08/03/2016 Office visit Cathi Sparrow FLAME ANNEALING MACHINE OPERATOR 01/24/2016 Hospital Austyn Day DO 01/07/2016 Office visit Austyn Day DO 06/24/[address] Karlene cruz MD 06/08/2015 Office visit 06/08/2015 Office visit Cathi Sparrow FLAME ANNEALING MACHINE OPERATOR 06/03/2015 Office visit Cathi Sparrow FLAME ANNEALING MACHINE OPERATOR 11/17/2014 Procedures Shade Scott MD 10/02/2014 Office visit Shade Scott MD 09/03/2014 Office visit Cathi Sparrow FLAME ANNEALING MACHINE OPERATOR 07/29/2014 Office visit Shade Scott MD 06/25/2014 Hospital Shade Scott MD 06/24/2014 Office visit Shade Scott MD 04/27/2014 Office visit Shade Scott MD 03/30/2014 Office visit Shade Scott MD 02/26/2014 Office visit Jared Skinner APR N 11/25/2013 Office visit Cathi Sparrow FLAME ANNEALING MACHINE OPERATOR 06/30/2013 Office visit Cathi Sparrow FLAME ANNEALING MACHINE OPERATOR 06/24/2013 Office visit Cathi Sparrow FLAME ANNEALING MACHINE OPERATOR 06/03/2012 Office visit Kostas Araya MD 03/18/2012 Office visit Kostas Araya MD 11/23/2009 Office visit Jaron Suárez MD 04/19/2009 Laboratory Rafa Vides MD
--- OUTSIDE RECORDS SUMMARY | 2019-07-19 22:41 | XMS REPORT ---
Author Author Kendra Vasquez Organization [facility] Address [address] [place], [place] [address] Care Team Providers Care Import Export Coordinator Name Role Phone Jaclyn Vasquez PCP Cathi Sparrow PreferredProvider Allergies and Adverse Reactions Name Reaction Notes NO KNOWN DRUG ALLERGIES Plan of Treatment Planned Activity Comments Planned Date Planned Time Plan/Goal Polysomnography 08/24/2015 12:00 AM Ova + parasites stool 07/18/2017 12:00 AM Medications Active Name Start Date Estimated Completion Date SIG Co mments meloxicam 15 mg oral tablet 06/24/2013 take 1 tablet (15 mg) by oral route once daily meloxicam 15 mg oral tablet 08/25/2013 take 1 tablet (15 mg) by oral route once daily Trulicity 0.75 mg/0.5 mL subcutaneous pen injector 08/17/2016 inject 0.5 milliliter (0.75 mg) by subcutaneous route every 7 days in the abdomen, thigh, or upper arm rotating injection sites Invokamet XR 150-1,000 mg oral tablet, IR - ER, biphasic 24hr 07/10/2017 TAKE TWO TABLETS BY MOUTH ONCE DAILY IN THE MORNING WITH A MEAL irbesartan-hydrochlorothiazide 150-12.5 mg oral tablet 07/10/2017 TAKE ONE TABLET BY MOUTH ONCE DAILY Viibryd 40 mg oral tablet 12/17/2017 TAKE O NE TABLET BY MOUTH ONCE DAILY WITH FOOD Invokamet XR 150-1,000 mg oral tablet, IR - ER, biphasic 24hr TAKE 2 TABLETS BY MOUTH ONCE DAILY IN THE MORNING WITH A MEAL amlodipine 5 mg oral tablet 01/25/2018 TAKE 1 TABLET BY MOUTH ONCE DAILY irbesartan-hydrochlorothiazide 150-12.5 mg oral tablet TAKE 1 TABLET BY MOUTH ONCE DAILY Vitamin D2 50,000 unit oral capsule 04/03/2018 take 1 capsule (50,000 unit) by oral route once weekly gemfibrozil 600 mg oral tablet 04/24/2018 T WILLIAM 1 TABLET BY MOUTH TWICE DAILY 30 MINUTES BEFORE MORNING AND EVENING MEALS Name Start Date Expiration Date SIG Comments gabapentin 100 mg oral capsule 06/30/2014 09/28/2014 t william 1 capsule by oral route 3 times a day for 30 days 7 Bactrim DS 800-160 mg oral tablet 09/03/2014 09/10/2014 take 1 tablet by oral route 2 times a day for 7 days losartan 50 mg oral tablet 10/14/2014 12/13/2014 take 1 tablet (50 mg) by oral route once daily for 30 days cetirizine 10 mg oral tablet 06/03/2015 [...] 5 times per day for 14 days Discontinued Name Start Date Discontinued Date [...] by oral route once daily at bedtime pantoprazole 40 mg oral tablet,delayed release (DR/EC) 05/08/2018 take 1 tablet (40 mg) by oral route once daily for 30 days Diflucan 150 mg oral tablet 04/12/2018 05/08/2018 take 1 tablet (150 mg) by oral route once nystatin 100,000 unit/mL oral suspension 05/16/2018 05/16/19 19 take 5 milliliters (500,000 unit) by oral route 4 times per day med not available at pharmacy Problem List Description Status Onset Osteoarthritis Active 09/03/2014 Hypercholesterolemia Active 09/03/2014 Morbid obesity Active 09/03/2014 Abdominal Pain Active 01/11/2016 Abdominal Pain Active 01/11/2016 Dyspepsia Active 01/11/2016 History of [...] Change in bowel habit Active 12/10/2017 Abdominal Pain Active 12/10/2017 Vital Signs Date Time BP-Sys(mm[Hg] BP-Maggy(mm[Hg]) HR(bpm) RR(rpm) Temp WT HT HC BMI BSA BMI Percentile O2 Sat(%) 05/08/2018 1:35:00 PM 120 mmHg 66 mmHg 97 bpm 97.5 F 283 lbs 68 in 43.0296 kg/m 2.4817 m 04/02/2018 9:01:00 AM 128 mmHg 72 mmHg 94 bpm 18 rpm 97.8 F 299 lbs 68 in 45.46 kg/m2 2.55 m2 98 % 12/05/2017 4:27:00 PM 130 mmHg 70 mmHg 91 bpm 20 rpm 96.8 F 302 lbs 68 in 45.9185 kg/m 2.5636 m 06/04/2017 10:27:00 AM 128 mmHg 72 mmHg 102 bpm 20 rpm 98.4 F 294 lbs 68 in 44.70 kg/m2 2.53 m2 95 % 12/14/2016 9:36:00 AM 128 mmHg 70 mmHg 100 bpm 18 rpm 98.1 F 277 lbs 68 in 42.1173 kg/m 2.4552 m 95 % 08/17/2016 1:51:00 PM 136 mmHg 74 mmHg 93 bpm 18 rpm 97.3 F 292 lbs 68 in 44.40 kg/m2 2.52 m2 96 % 08/03/2016 9:52:00 AM 118 mmHg 70 mmHg 114 bpm 18 rpm 97.1 F 295.125 lbs 68 in 44.8731 kg/m 2.5343 m 95 % 01/07/2016 9:56:00 AM 144 mmHg 77 mmHg 89 bpm 20 rpm 97.5 F 302 lbs 68 in 45.92 kg/m2 2.56 m2 06/24/2015 3:35:00 PM 180 mmHg 100 mmHg 100 bpm 98.3 F 310.5 lbs 69 i n 45.8524 kg/m 2.6185 m 06/08/2015 2:01:00 PM 138 mmHg 76 mmHg 97 bpm 18 rpm 97.1 F 313.375 lbs 71 i n 43.71 kg/m2 2.67 m2 96 % 06/03/2015 8:43:00 AM 132 mmHg 82 mmHg 91 bpm 20 rpm 97.3 F 313 lbs 71 in 43.6542 kg/m 2.6669 m 96 % 10/02/2014 9:32:00 AM 148 mmHg 102 mmHg 124 bpm 18 rpm 97.8 F 318 lbs 71 in 44.35 kg/m2 2.69 m2 09/03/2014 11:11:00 AM 140 mmHg 78 mmHg 105 bpm 18 rpm 98.3 F 312.5 lbs 68 in 47.515 kg/m 2.6078 m 97 % 07/29/2014 1:35:00 PM 132 mmHg 84 mmHg 74 bpm 20 rpm 97.5 F 308 lbs 68 in 46.83 kg/m2 2.59 m2 06/24/2014 8:39:00 AM 152 mmHg 84 mmHg 73 bpm 18 rpm 96.5 F 312 lbs 68 in 47.439 kg/m 2.6057 m 04/27/2014 1:13:00 PM 158 mmHg 86 mmHg 88 bpm 18 rpm 97.5 F 307 lbs 68 in 46.68 kg/m2 2.58 m2 03/30/2014 8:29:00 AM 132 mmHg 88 mmHg 81 bpm 18 rpm 97.8 F 310.5 lbs 68 i n 47.2109 kg/m 2.5995 m 02/26/2014 10:48:00 AM 150 mmHg 100 mmHg 103 bpm 18 rpm 96.8 F 310 lbs 70 in 44.48 kg/m2 2.64 m2 96 % 11/25/2013 3:01:00 PM 142 mmHg 80 mmHg 102 bpm 18 rpm 97.8 F 300.125 lbs 68 in 45.6334 kg/m 2.5557 m 98 % 06/30/2013 9:00:00 AM 138 mmHg 76 mmHg 97 bpm 18 rpm 96.7 F 283.562 lbs 68 in 43.12 kg/m2 2.48 m2 98 % 06/24/2013 9:10:00 AM 142 mmHg 84 mmHg 91 bpm 18 rpm 97.3 F 282.125 lbs 68 in 42.8965 kg/m 2.4778 m 97 % 06/03/2012 10:06:00 AM 154 mmHg 92 mmHg 88 bpm 20 rpm 97.1 F 274 lbs 68 in 41.66 kg/m2 2.44 m2 03/18/2012 3:04:00 PM 144 mmHg 82 mmHg 88 bpm 18 rpm 97.8 F 288 lbs 68 in 43.7898 kg/m 2.5035 m 11/23/2009 10:55:00 AM 120 mmHg 80 mmHg 64 bpm 18 rpm 96.7 F 256 lbs Social [...] 06/04/2017 12:00 AM FECES CULTURE AEROBIC BACT Returned 06/04/2017 12:00 AM LEUKOCYTE ASSESSMENT FECAL Returned 06/03/2012 12:[address] THORAX W/O & W/DYE Reviewed 06/03/2012 12:00 AM Rocephin 1 gram [facility]#[id number] Reviewe d 04/02/2018 12:00 AM COMPLETE CBC W/AUTO DIFF WBC Returned 04/02/2018 12:00 AM COMPREHEN METABOLIC PANEL Returned 04/02/2018 12:00 AM LIPID PANEL Returned 04/02/2018 12:00 AM GLYCOSYLATED HEMOGLOBIN TEST Returned 04/02/2018 12:00 AM ASSAY THYROID STIM HORMONE Returned 04/02/2018 12:00 AM VITAMIN D 25 HYDROXY Returned 04/02/2018 12:00 AM EXTRACRANIAL BILAT STUDY Returned 04/02/2018 12:[address] HEAD/BRAIN W/O & W/DYE Returned 07/15/2018 12:00 AM COMPLETE CBC W/AUTO DIFF WBC Returned 07/15/2018 12:00 AM COMPREHEN METABOLIC PANEL Returned 07/15/2018 12:00 AM GLYCOSYLATED HEMOGLOBIN TEST Returned 07/15/2018 12:00 AM LIPID PANEL Returned 07/17/2018 12:00 AM VITAMIN D 25 HYDROXY Returned 06/30/2013 12:00 AM CYTOPATH C/V MANUAL Reviewed 06/30/2013 12:00 AM MAMMOGRAM BOTH BREASTS Reviewed 03/02/2014 12:[address] SOFT TISSUE NECK [...] by Dr. Scott to RL back. used marcaine, 1% lido 06/09/2015 8:10 AM GLUCOSE 143.0 mg/dLSODIUM 14 2.0 mmol/LPOTASSIUM 3.80 mmol/LCHLORIDE 105.0 mmol/LCO2 27.0 mmol/LBUN 13.0 mg/dLCREATININE 0.80 mg/dLSGOT/AST 16.0 IU/LSGPT/ALT 25.0 IU/LALK PHOS 101.0 IU/LTOTAL PROTEIN 6.60 g/dLALBUMIN 4.0 g/dLTOTAL BILI 0.50 mg/dLCALCIUM 8.90 mg/dLAGE 60 GFR NonAA 74 GFR AA 90 eGFR >60 mL/min/1.73meGFR AA* >60 08/17/2016 8:05 AM HGB A1C [...] A1C 6.20 %Est Avg Glucose 131.2 mg/dL 11/13/2017 12:58 PM PQRS 14 Diabetic Eye Exam Di abetic eye exam performed/documented/reviewed History Of Immunizations Not available. 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 Bronchitis, chronic Numbness and Tingling Rectal Bleeding Ganglion Nov 23 2009 10:57AM Osteoarthritis 09/03/2014 Hypercholesterolemia 09/03/2014 Morbid obesity 09/03/2014 Abdominal Pain 12/10/2017 Dyspepsia 01/11/2016 History of colon polyps [...] 2016 9:56AM Chronic obstructive pulmonary disease, unspecified POWER MACHINE OPERATOR D type Aug 03 2016 9:56AM STEPHANIE [...] vitamin D level Jul 17 2018 1:22PM Payers Insurance Name Company Name Plan Name Plan Number Policy Number Chay cy Group Number Start Date [employer] [place] [id number] N/ A [employer] [id number] Sunday, 2012 [employer] [place] [id number] Mo 2011 [employer] [place] [id number] N/ A History of Encounters Visit Date Visit Type Provider 05/08/2018 Office visit Jaclyn quan GEOGRAPHIC INFORMATION SYSTEMS DIRECTOR 04/02/2018 Office visit Cathi Sparrow GEOGRAPHIC INFORMATION SYSTEMS DIRECTOR 12/10/2017 Surgery Austyn Day DO 12/05/2017 Office visit Austyn Day DO 06/04/2017 Office visit Cathi Sparrow GEOGRAPHIC INFORMATION SYSTEMS DIRECTOR 12/14/2016 Office visit Cathi Sparrow GEOGRAPHIC INFORMATION SYSTEMS DIRECTOR 08/17/2016 Office visit Cathi Sparrow GEOGRAPHIC INFORMATION SYSTEMS DIRECTOR 08/03/2016 Office visit Cathi Sparrow GEOGRAPHIC INFORMATION SYSTEMS DIRECTOR 01/24/2016 Hospital Austyn Day DO 01/07/2016 Office visit Austyn Day DO 06/24/[address] Karlene cruz MD 06/08/2015 Office visit 06/08/2015 Office visit Cathi Sparrow GEOGRAPHIC INFORMATION SYSTEMS DIRECTOR 06/03/2015 Office visit Cathi Sparrow GEOGRAPHIC INFORMATION SYSTEMS DIRECTOR 11/17/2014 Procedures Shade Scott MD 10/02/2014 Office visit Shade Scott MD 09/03/2014 Office visit Cathi Sparrow GEOGRAPHIC INFORMATION SYSTEMS DIRECTOR 07/29/2014 Office visit Shade Scott MD 06/25/2014 Hospital Shade Scott MD 06/24/2014 Office visit Shade Scott MD 04/27/2014 Office visit Shade Scott MD 03/30/2014 Office visit Shade Scott MD 02/26/2014 Office visit Jared Skinner APR N 11/25/2013 Office visit Cathi Sparrow GEOGRAPHIC INFORMATION SYSTEMS DIRECTOR 06/30/2013 Office visit Cathi Sparrow GEOGRAPHIC INFORMATION SYSTEMS DIRECTOR 06/24/2013 Office visit Cathi Sparrow GEOGRAPHIC INFORMATION SYSTEMS DIRECTOR 06/03/2012 Office visit Kostas Araya MD 03/18/2012 Office visit Kostas Araya MD 11/23/2009 Office visit Jaron Suárez MD 04/19/2009 Laboratory Rafa Vides MD
--- OUTSIDE RECORDS SUMMARY | 2019-07-19 22:42 | XMS REPORT ---
Author Author Kendra Vasquez Organization [facility] Address [address] [place], [place] [id number] Care Team Providers Care Certified Nutritionist Name Role Phone Jaclyn Vasquez PCP Cathi Sparrow PreferredProvider Allergies and Adverse Reactions Name Reaction Notes NO KNOWN DRUG ALLERGIES Plan of Treatment Planned Activity Comments Planned Date Planned Time Plan/Goal Polysomnography 08/24/2015 12:00 AM Ova + parasites stool 07/18/2017 12:00 AM VITAMIN D (25 HYDROXY) 07/17/2018 12:00 AM Medications Active Name Start Date [...] Reviewed 06/03/2012 12:00 AM Rocephin 1 gram [facility]#[id number] Reviewe d 04/02/2018 12:00 AM COMPLETE CBC [...] Returned 07/15/2018 12:00 AM LIPID PANEL Returned 06/30/2013 12:00 AM CYTOPATH C/V MANUAL [...] by Dr. Scott to RL back. used marcoliver, 1% lido 06/09/2015 8:10 AM GLUCOSE 143.0 [...] 2016 9:56AM Chronic obstructive pulmonary disease, unspecified FACILITY MECHANIC D type Aug 03 2016 9:56AM STEPHANIE [...] Group Number Start Date [employer] [place] [id number] N/ A [employer] [id number] Sunday, 2012 [employer] [place] [id number] Mo 2011 [employer] [place] [id number] N/ A History of Encounters Visit Date Visit Type Provider 05/08/2018 Office visit Jaclyn quan LAMP STACK DEVELOPER 04/02/2018 Office visit Cathi Sparrow LAMP STACK DEVELOPER 12/10/2017 Surgery Austyn Day DO 12/05/2017 Office visit Austyn Day DO 06/04/2017 Office visit Cathi Sparrow LAMP STACK DEVELOPER 12/14/2016 Office visit Cathi Sparrow LAMP STACK DEVELOPER 08/17/2016 Office visit Cathi Sparrow LAMP STACK DEVELOPER 08/03/2016 Office visit Cathi Sparrow LAMP STACK DEVELOPER 01/24/2016 Hospital Austyn Day DO 01/07/2016 Office visit Austyn Day DO 06/24/[address] Karlene cruz MD 06/08/2015 Office visit 06/08/2015 Office visit Cathi Sparrow LAMP STACK DEVELOPER 06/03/2015 Office visit Cathi Sparrow LAMP STACK DEVELOPER 11/17/2014 Procedures Shade Scott MD 10/02/2014 Office visit Shade Scott MD 09/03/2014 Office visit Cathi Sparrow LAMP STACK DEVELOPER 07/29/2014 Office visit Shade Scott MD 06/25/2014 [facility] Shade Scott MD 06/24/2014 Office visit Shade Scott MD 04/27/2014 Office visit Shade Scott MD 03/30/2014 Office visit Shade Scott MD 02/26/2014 Office visit Jared Skinner APR N 11/25/2013 Office visit Cathi Sparrow LAMP STACK DEVELOPER 06/30/2013 Office visit Cathi Sparrow LAMP STACK DEVELOPER 06/24/2013 Office visit Cathi Sparrow LAMP STACK DEVELOPER 06/03/2012 Office visit Kostas Araya MD 03/18/2012 Office visit Kostas Araya MD 11/23/2009 Office visit Jaron Suárez MD 04/19/2009 Laboratory Rafa Vides MD
--- OUTSIDE RECORDS SUMMARY | 2019-07-19 22:42 | XMS REPORT ---
Author Author Kendra Vasquez Organization [facility] Address [address] [place], [place] [address] Care Team Providers Care Automobile Body Repair Chief Name Role Phone Jaclyn Vasquez PCP Cathi Sparrow PreferredProvider Allergies and Adverse Reactions Name Reaction Notes NO KNOWN DRUG ALLERGIES Plan of Treatment Planned Activity Comments Planned Date Planned Time Plan/Goal Polysomnography 08/24/2015 12:00 AM Ova + parasites stool 07/18/2017 12:00 AM CBC W/ AUTO DIFF (RFLX MAN DIFF IF IND). 07/15/2018 12:00 AM CMP 07/15/2018 12:00 AM HEMOGLOBIN A1C 07/15/2018 12:00 AM LIPID PANEL 07/15/2018 12:00 AM Medications Active Name Start Date [...] ONCE DAILY irbesartan-hydrochlorothiazide 150-12.5 mg oral tablet 8 TAKE [...] 12:00 AM Rocephin 1 gram [facility]#[id number] Reviewe d 04/02/2018 12:00 AM COMPLETE CBC W/AUTO DIFF WBC Returned 04/02/2018 12:00 AM COMPREHEN METABOLIC PANEL Returned 04/02/2018 12:00 AM LIPID PANEL Returned 04/02/2018 12:00 AM GLYCOSYLATED HEMOGLOBIN TEST Returned 04/02/2018 12:00 AM ASSAY THYROID STIM HORMONE Returned 04/02/2018 12:00 AM VITAMIN D 25 HYDROXY Returned 04/02/2018 12:00 AM EXTRACRANIAL BILAT STUDY Returned 04/02/2018 12:[address] HEAD/BRAIN W/O & W/DYE Returned 06/30/2013 12:00 AM CYTOPATH C/V MANUAL [...] 2016 9:56AM Chronic obstructive pulmonary disease, unspecified SOCIAL SERVICE COORDINATOR D type Aug 03 2016 9:56AM STEPHANIE [...] 2018 2:50PM Hyperlipidemia Jul 15 2018 2:50PM Payers Insurance Name Company Name Plan Name Plan Number Policy Number Chay cy Group Number Start Date [employer] [place] [id number] N/ A [employer] [id number] Sunday, 2012 [employer] [place] [id number] Mo 2011 [employer] [place] [id number] N/ A History of Encounters Visit Date Visit Type Provider 05/08/2018 Office visit Jaclyn quan CLOTHES WRINGER 04/02/2018 Office visit Cathi Sparrow CLOTHES WRINGER 12/10/2017 Surgery Austyn Day DO 12/05/2017 Office visit Austyn Day DO 06/04/2017 Office visit Cathi Sparrow CLOTHES WRINGER 12/14/2016 Office visit Cathi Sparrow CLOTHES WRINGER 08/17/2016 Office visit Cathi Sparrow CLOTHES WRINGER 08/03/2016 Office visit Cathi Sparrow CLOTHES WRINGER 01/24/2016 Hospital Austyn Day DO 01/07/2016 Office visit Austyn Day DO 06/24/[address] Karlene cruz MD 06/08/2015 Office visit 06/08/2015 Office visit Cathi Sparrow CLOTHES WRINGER 06/03/2015 Office visit Cathi Sparrow CLOTHES WRINGER 11/17/2014 Procedures Shade Scott MD 10/02/2014 Office visit Shade Scott MD 09/03/2014 Office visit Cathi Sparrow CLOTHES WRINGER 07/29/2014 Office visit Shade Scott MD 06/25/2014 Hospital Shade Scott MD 06/24/2014 Office visit Shade Scott MD 04/27/2014 Office visit Shade Scott MD 03/30/2014 Office visit Shade Scott MD 02/26/2014 Office visit Jared Skinner APR N 11/25/2013 Office visit Cathi Sparrow CLOTHES WRINGER 06/30/2013 Office visit Cathi Sparrow CLOTHES WRINGER 06/24/2013 Office visit Cathi Sparrow CLOTHES WRINGER 06/03/2012 Office visit Kostas Aarya MD 03/18/2012 Office visit Kostas Araya MD 11/23/2009 Office visit Jaron Suárez MD 04/19/2009 Laboratory Rafa Vides MD
--- OUTSIDE RECORDS SUMMARY | 2019-07-19 22:42 | XMS REPORT ---
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 Aug 03 2016 9:56AM STEPHANIE [...] Group Number Start Date [employer] [place] [id number] N/ A [employer] [id number] Sunday, 2012 [employer] [place] [id number] Mo 2011 [employer] [place] [id number] N/ A History of Encounters Visit Date Visit Type Provider 05/08/2018 Office visit Jaclyn quan DIRECTOR OF VALUATION 04/02/2018 Office visit Cathi Sparrow DIRECTOR OF VALUATION 12/10/2017 Surgery Austyn Day DO 12/05/2017 Office visit Austyn Day DO 06/04/2017 Office visit Cathi Sparrow DIRECTOR OF VALUATION 12/14/2016 Office visit Cathi Sparrow DIRECTOR OF VALUATION 08/17/2016 Office visit Cathi Sparrow DIRECTOR OF VALUATION 08/03/2016 Office visit Cathi Sparrow DIRECTOR OF VALUATION 01/24/2016 Hospital Austyn Day DO 01/07/2016 Office visit Austyn Day DO 06/24/[address] Karlene cruz MD 06/08/2015 Office visit 06/08/2015 Office visit Cathi Sparrow DIRECTOR OF VALUATION 06/03/2015 Office visit Cathi Sparrow DIRECTOR OF VALUATION 11/17/2014 Procedures Shade Scott MD 10/02/2014 Office visit Shade Scott MD 09/03/2014 Office visit Cathi Sparrow DIRECTOR OF VALUATION 07/29/2014 Office visit Shade Scott MD 06/25/2014 Hospital Shade Scott MD 06/24/2014 Office visit hSade Scott MD 04/27/2014 Office visit Shade Scott MD 03/30/2014 Office visit Shade Scott MD 02/26/2014 Office visit Jared Skinner APR N 11/25/2013 Office visit Cathi Sparrow DIRECTOR OF VALUATION 06/30/2013 Office visit Cathi Sparrow DIRECTOR OF VALUATION 06/24/2013 Office visit Cathi Sparrow DIRECTOR OF VALUATION 06/03/2012 Office visit Kostas Araya MD 03/18/2012 Office visit Kostas Araya MD 11/23/2009 Office visit Jaron Suárez MD 04/19/2009 Laboratory Rafa Vides MD
--- OUTSIDE RECORDS SUMMARY | 2019-07-19 22:43 | XMS REPORT ---
Author Author Kendra Vasquez Organization [facility] Address [address] [place], [place] [address] Care Team Providers Care Manager Compensation Name Role Phone Jaclyn Vasquez PCP Cathi [...] 30 MINUTES BEFORE MORNING AND EVENING MEALS nystatin-triamcinolone 100,000-0.1 unit/gram-% topical ointm ent 05/08/2018 05/15/2018 apply to the affected area(s) by topical route 3 times per day nystatin 100,000 unit/gram topical powder 05/08/2018 019 apply to the skin folds of the abdomen by topical route 3 times per day Name Start Date Expiration Date SIG Comments [...] morning and evening meal for 30 days Discontinued Name Start Date Discontinued Date [...] tablet (150 mg) by oral route once Problem List Description Status Onset Osteoarthritis Active [...] Reviewed 06/03/2012 12:00 AM Rocephin 1 gram [facility]#[id number] Reviewe d 04/02/2018 12:00 AM COMPLETE CBC [...] 2016 9:56AM Chronic obstructive pulmonary disease, unspecified MEDICAL CLAIMS ANALYST D type Aug 03 2016 9:56AM STEPHANIE [...] 2018 1:40PM Obesity May 08 2018 1:40PM Payers Insurance Name Company Name Plan Name Plan Number Policy Number Chay cy Group Number Start Date [employer] [place] [id number] N/ A [employer] [id number] Sunday, 2012 [employer] [place] [id number] Mo 2011 [employer] [place] [id number] N/ A History of Encounters Visit Date Visit Type Provider 05/08/2018 Office visit Jaclyn quan COAL HAULER OPERATOR 04/02/2018 Office visit Cathi Sparrow COAL HAULER OPERATOR 12/10/2017 Surgery Austyn Day DO 12/05/2017 Office visit Austyn Day DO 06/04/2017 Office visit Cathi Sparrow COAL HAULER OPERATOR 12/14/2016 Office visit Cathi Sparrow COAL HAULER OPERATOR 08/17/2016 Office visit Cathi Sparrow COAL HAULER OPERATOR 08/03/2016 Office visit Cathi Sparrow COAL HAULER OPERATOR 01/24/2016 Hospital Austyn Day DO 01/07/2016 Office visit Austyn Day DO 06/24/[address] Karlene cruz MD 06/08/2015 Office visit 06/08/2015 Office visit Cathi Sparrow COAL HAULER OPERATOR 06/03/2015 Office visit Cathi Sparrow COAL HAULER OPERATOR 11/17/2014 Procedures Shade Scott MD 10/02/2014 Office visit Shade Scott MD 09/03/2014 Office visit Cathi Sparrow COAL HAULER OPERATOR 07/29/2014 Office visit Shade Scott MD 06/25/2014 Hospital Shade Scott MD 06/24/2014 Office visit Shade Scott MD 04/27/2014 Office visit Shade Scott MD 03/30/2014 Office visit Shade Scott MD 02/26/2014 Office visit Jared Skinner APR N 11/25/2013 Office visit Cathi Sparrow COAL HAULER OPERATOR 06/30/2013 Office visit Cathi Sparrow COAL HAULER OPERATOR 06/24/2013 Office visit Cathi Sparrow COAL HAULER OPERATOR 06/03/2012 Office visit Kostas Araya MD 03/18/2012 Office visit Kostas Araya MD 11/23/2009 Office visit Jaron Suárez MD 04/19/2009 Laboratory Rafa Vides MD
--- OUTSIDE RECORDS SUMMARY | 2019-07-19 22:43 | XMS REPORT ---
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 Aug 03 2016 9:56AM STEPHANIE [...] Group Number Start Date BC[employer] [place] [id number] N/ A [employer] [id number] Sunday, 2012 [employer] [place] [id number] Mo 2011 [employer] [place] [id number] N/ A History of Encounters Visit Date Visit Type Provider 05/08/2018 Office visit Jaclyn quan RUBBER FLAP CUTTER 04/02/2018 Office visit Cathi Sparrow RUBBER FLAP CUTTER 12/10/2017 Surgery Austyn Day DO 12/05/2017 Office visit Austyn Day DO 06/04/2017 Office visit Cathi Sparrow RUBBER FLAP CUTTER 12/14/2016 Office visit Cathi Sparrow RUBBER FLAP CUTTER 08/17/2016 Office visit Cathi Sparrow RUBBER FLAP CUTTER 08/03/2016 Office visit Cathi Sparrow RUBBER FLAP CUTTER 01/24/2016 Hospital Austyn Day DO 01/07/2016 Office visit Austyn Day DO 06/24/[address] Karlene cruz MD 06/08/2015 Office visit 06/08/2015 Office visit Cathi Sparrow RUBBER FLAP CUTTER 06/03/2015 Office visit Cathi Sparrow RUBBER FLAP CUTTER 11/17/2014 Procedures Shade Scott MD 10/02/2014 Office visit Shade Scott MD 09/03/2014 Office visit Cathi Sparrow RUBBER FLAP CUTTER 07/29/2014 Office visit Shade Scott MD 06/25/2014 Hospital Shade Scott MD 06/24/2014 Office visit Shade Scott MD 04/27/2014 Office visit Shade Scott MD 03/30/2014 Office visit Shade Scott MD 02/26/2014 Office visit Jared Skinner APR N 11/25/2013 Office visit Cathi Sparrow RUBBER FLAP CUTTER 06/30/2013 Office visit Cathi Sparrow RUBBER FLAP CUTTER 06/24/2013 Office visit Cathi Sparrow RUBBER FLAP CUTTER 06/03/2012 Office visit Kostas Araya MD 03/18/2012 Office visit Kostas Araya MD 11/23/2009 Office visit Jaron Suárez MD 04/19/2009 Laboratory Rafa Vides MD
--- OUTSIDE RECORDS SUMMARY | 2019-07-19 22:44 | XMS REPORT ---
Author Author Kendra Sparrow Organization [facility] Address [address] [place], [place] [id number] Care Team Providers Care Dyed Raw Stock Blower Feeder Name Role Phone Cathi Sparrow PCP Cathi [...] TAKE 1 TABLET BY MOUTH ONCE DAILY pantoprazole 40 mg oral tablet,delayed release (DR/EC) 8 07/03/2018 take 1 tablet (40 mg) by oral route once daily for 30 days Lopid 600 mg oral tablet 04/03/2018 05/03/2018 take 1 tablet (600 mg) by oral route 2 times per day 30 minutes before morning and evening meal for 30 days Vitamin D2 50,000 unit oral capsule 04/03/2018 take 1 capsule (50,000 unit) by oral route once weekly Diflucan 150 mg oral tablet 04/12/2018 take 1 tablet (150 mg) by oral route once Name Start Date Expiration Date SIG Comments [...] oral recon soln 8 take as directed Discontinued Name Start Date Discontinued Date SIG [...] by oral route once daily at bedtime Problem List Description Status Onset Osteoarthritis Active [...] HC BMI BSA BMI Percentile O2 Sat(%) 04/02/2018 9:01:00 AM 128 mmHg 72 mmHg 94 bpm 18 rpm 97.8 F 299 lbs 68 in 45.4623 kg/m 2.5509 m 98 % 12/05/2017 4:27:00 PM 130 mmHg 70 mmHg 91 bpm 20 rpm 96.8 F 302 lbs 68 in 45.92 kg/m2 2.56 m2 06/04/2017 10:27:00 AM 128 mmHg 72 mmHg 102 bpm 20 rpm 98.4 F 294 lbs 68 in 44.7021 kg/m 2.5295 m 95 % 12/14/2016 9:36:00 AM 128 mmHg 70 mmHg 100 bpm 18 rpm 98.1 F 277 lbs 68 in 42.12 kg/m2 2.46 m2 95 % 08/17/2016 1:51:00 PM 136 mmHg 74 mmHg 93 bpm 18 rpm 97.3 F 292 lbs 68 in 44.398 kg/m 2.5208 m 96 % 08/03/2016 9:52:00 AM 118 mmHg 70 mmHg 114 bpm 18 rpm 97.1 F 295.125 lbs 68 in 44.87 kg/m2 2.53 m2 95 % 01/07/2016 9:56:00 AM 144 mmHg [...] Rocephin 1 gram [facility]#[id number] Reviewe d 04/02/2018 12:00 AM COMPLETE CBC [...] 2016 9:56AM Chronic obstructive pulmonary disease, unspecified 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 Aug 03 2016 9:56AM STEPHANIE [...] GERD without esophagitis Apr 02 2018 9:02AM Payers Insurance Name Company Name Plan Name Plan Number Policy Number Chay cy Group Number Start Date BCBS [employer] [place] [id number] N/ A [employer] [id number] Sunday, 2012 [facility] [id number] Mo 2011 BCBS [employer] [place] [id number] N/ A History of Encounters Visit Date Visit Type Provider 04/02/2018 Office visit Cathi Sparrow APRN 12/10/2017 Surgery Austyn Day DO 12/05/2017 Office visit Austyn Day DO 06/04/2017 Office visit Cathi Sparrow TONNAGE COMPILATION CLERK 12/14/2016 Office visit Cathi Andrews TONNAGE COMPILATION CLERK 08/17/2016 Office visit Cathi Sparrow TONNAGE COMPILATION CLERK 08/03/2016 Office visit Cathi Sparrow TONNAGE COMPILATION CLERK 01/24/2016 Hospital Austyn Shay DO 01/07/2016 Office visit Austyn Day DO 06/24/[address] Karlene cruz MD 06/08/2015 Office visit 06/08/2015 Office visit Cathi Sparrow TONNAGE COMPILATION CLERK 06/03/2015 Office visit Cathi Andrews TONNAGE COMPILATION CLERK 11/17/2014 Procedures Shade Scott MD 10/02/2014 Office visit Shade Scott MD 09/03/2014 Office visit Cathi Sparrow TONNAGE COMPILATION CLERK 07/29/2014 Office visit Shade Scott MD 06/25/2014 Hospital Shade Scott MD 06/24/2014 Office visit Shade Scott MD 04/27/2014 Office visit Shade Scott MD 03/30/2014 Office visit Shade Scott MD 02/26/2014 Office visit Jared Skinner APR N 11/25/2013 Office visit Cathi Sparrow TONNAGE COMPILATION CLERK 06/30/2013 Office visit Cathi Sparrow TONNAGE COMPILATION CLERK 06/24/2013 Office visit Cathi Sparrow TONNAGE COMPILATION CLERK 06/03/2012 Office visit Kostas Araya MD 03/18/2012 Office visit Kostas Araya MD 11/23/2009 Office visit Jaron Suárez MD 04/19/2009 Laboratory Rafa Vides MD
--- OUTSIDE RECORDS SUMMARY | 2019-07-19 22:44 | XMS REPORT ---
Author Author Kendra Sparrow Organization [facility] Address [address] [place], [place] [id number] Care Team Providers Care Transfer Worker Name Role Phone Cathi Sparrow PCP Cathi Sparrow PreferredProvider Allergies and Adverse Reactions Name Reaction Notes NO KNOWN DRUG ALLERGIES Plan of Treatment Planned Activity Comments Planned Date Planned Time Plan/Goal Polysomnography 08/24/2015 12:00 AM Ova + parasites stool 07/18/2017 12:00 AM US CAROTID DUPLEX COMP/JEFF 04/02/2018 12:00 AM Complete computed tomography of brain without then with contrast 04/02/2018 12:00 AM Medications Active Name Start Date [...] (50,000 unit) by oral route once weekly Name Start Date Expiration Date SIG Comments [...] 06/03/2012 12:00 AM Rocephin 1 gram [facility]#[id number] Reviewe d 04/02/2018 12:00 AM COMPLETE CBC [...] discharge Jun 03 2015 8:47AM Chronic cough b 2015 7:09AM Lung nodules Jun 08 2015 7:09AM Routine gynecological examination b 2015 2:03PM Screening breast examination b 2015 2:03PM Chronic bronchitis, unspecified chronic bronchitis type Feb 2015 2:03PM Enlarged heart b 2015 8:17AM Pulmonary arterial hypertension Jun 11 [...] 2016 9:56AM Chronic obstructive pulmonary disease, unspecified 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 Aug 03 2016 9:56AM STEPHANIE [...] Plan Name Plan Number Policy Number Chay Group Number Start Date BCBS [employer] [place] [id number] N/ A [employer] [id number] Sunday, 2012 BCBS [employer] [place] [id number] Mo 2011 BCBS [employer] [place] [id number] N/ A History of Encounters Visit Date Visit Type Provider 04/02/2018 Office visit Cathi Sparrow AERONAUTICAL PRODUCTS SALES ENGINEER 12/10/2017 Surgery Austyn Day DO 12/05/2017 Office visit Austyn Day DO 06/04/2017 Office visit Cathi Sparrow AERONAUTICAL PRODUCTS SALES ENGINEER 12/14/2016 Office visit Cathi Sparrow AERONAUTICAL PRODUCTS SALES ENGINEER 08/17/2016 Office visit Cathi Sparrow AERONAUTICAL PRODUCTS SALES ENGINEER 08/03/2016 Office visit Cathi Andrews AERONAUTICAL PRODUCTS SALES ENGINEER 01/24/2016 Hospital Austyn Shay DO 01/07/2016 Office visit Austyn Day DO 06/24/[address] Karlene cruz MD 06/08/2015 Office visit 06/08/2015 Office visit Cathi Andrews AERONAUTICAL PRODUCTS SALES ENGINEER 06/03/2015 Office visit Cathi Sparrow AERONAUTICAL PRODUCTS SALES ENGINEER 11/17/2014 Procedures Shade Scott MD 10/02/2014 Office visit Shade Scott MD 09/03/2014 Office visit Cathi Sparrow AERONAUTICAL PRODUCTS SALES ENGINEER 07/29/2014 Office visit Shade Scott MD 06/25/2014 [facility] Shade Scott MD 06/24/2014 Office visit Shade Scott MD 04/27/2014 Office visit Shade Scott MD 03/30/2014 Office visit Shade Scott MD 02/26/2014 Office visit Jared Skinner APR N 11/25/2013 Office visit Ctahi Sparrow AERONAUTICAL PRODUCTS SALES ENGINEER 06/30/2013 Office visit Cathi pSarrow AERONAUTICAL PRODUCTS SALES ENGINEER 06/24/2013 Office visit Cathi Sparrow AERONAUTICAL PRODUCTS SALES ENGINEER 06/03/2012 Office visit Kostas Araya MD 03/18/2012 Office visit Kostas Araya MD 11/23/2009 Office visit Jaron Suárez MD 04/19/2009 Laboratory Rafa Vides MD
--- OUTSIDE RECORDS SUMMARY | 2019-07-19 22:44 | XMS REPORT ---
Author Author Kendra Day [facility] Address [address] [place], [place] [id number] Care Team Providers Care Photographic Double Name Role Phone Austyn Day PCP Cathi Sparrow PreferredProvider Allergies and Adverse [...] oral tablet, IR - ER, biphasic 24hr take 2 tablets by oral route once daily in the morning with a meal Viibryd 40 mg oral tablet 12/14/2016 take 1 tablet (40 mg) by oral route once daily with food Bevespi Aerosphere 9-4.8 mcg inhalation HFA aerosol inhaler 06/04 inhale 2 puffs by inhalation route 2 times per day in the morning and evening amlodipine 5 mg oral tablet 07/10/2017 take 1 tablet (5 mg) by oral route once daily Invokamet XR 150-1,000 mg oral tablet, IR - ER, biphasic 24hr 07/10/2017 TAKE TWO TABLETS BY MOUTH ONCE DAILY IN THE MORNING WITH A MEAL irbesartan-hydrochlorothiazide 150-12.5 mg oral tablet 07/10/2017 TAKE ONE TABLET BY MOUTH ONCE DAILY Trulicity 0.75 mg/0.5 mL subcutaneous pen injector 07/10/2017 INJECT 0.5 ML (0.75MG) SUBCUTANEOUSLY EVERY 7 DAYS IN THE ABDOMEN, THIGH OR UPPER ARM, ROTATING INJECTION SITES famotidine 20 mg oral tablet davina e 1 tablet (20 mg) by oral route once daily at bedtime Suprep Bowel Prep Kit 17.5-3.13-1.6 gram oral recon soln 8 take as directed Name Start Date Expiration Date SIG Comments gabapentin 100 mg oral capsule 06/30/2014 09/28/2014 t abdias 1 capsule by oral route 3 times [...] gabapentin 100 mg oral capsule 06/03/2015 T ABDIAS ONE CAPSULE BY MOUTH THREE TIMES DAILY [...] take 2 table ts daily x5 days ProAir HFA 90 mcg/actuation inhalation HFA aerosol inhaler 2017 inhale 1 puff (90 mcg) by inhalation route every 6 hours as needed Discontinued Name Start Date Discontinued Date SIG Comments Hyzaar 100-12.5 mg oral tablet 03/18/2012 t abdias 1 tablet by oral route once daily [...] once daily Zanaflex 4 mg oral capsule 06/24/2013September take 1 tab let every 8hrs prn [...] HC BMI BSA BMI Percentile O2 Sat(%) 12/05/2017 4:27:00 PM 130 mmHg 70 mmHg [...] 12:00 AM Rocephin 1 gram [facility]#[id number] Reviewe d 06/30/2013 12:00 AM CYTOPATH C/V MANUAL Reviewed [...] discharge Jun 03 2015 8:47AM Chronic cough Feb 2015 7:09AM Lung nodules b 2015 7:09AM Routine gynecological examination Feb 2015 2:03PM Screening breast examination Feb 2015 2:03PM Chronic bronchitis, unspecified chronic bronchitis type Feb 2015 2:03PM Enlarged heart Feb 2015 8:17AM Pulmonary arterial hypertension Jun 11 [...] 2016 9:56AM Chronic obstructive pulmonary disease, unspecified 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 Aug 03 2016 9:56AM [...] (gastroesophageal reflux disease) Dec 05 2017 4:30PM Payers Insurance Name Company Name Plan Name Plan Number Policy Number Chay cy Group Number Start Date BCBS [facility] [id number] N/ A [employer] [id number] Sunday, 2012 BCBS [employer] [place] [id number] Mo 2011 BCBS [employer] [place] [id number] N/ A History of Encounters Visit Date Visit Type Provider 12/10/2017 Surgery Austyn Bouman DO 12/05/2017 Office visit Austyn Bouman DO 06/04/2017 Office visit Cathi Sparrow ANALYTICS SENIOR MANAGER 12/14/2016 Office visit Cathi Sparrow ANALYTICS SENIOR MANAGER 08/17/2016 Office visit Cathi Sparrow ANALYTICS SENIOR MANAGER 08/03/2016 Office visit Cathi Sparrow ANALYTICS SENIOR MANAGER 01/24/2016 Hospital Austyn Day DO 01/07/2016 Office visit Austyn Day DO 06/24/[address] Karlene cruz MD 06/08/2015 Office visit 06/08/2015 Office visit Cathi Sparrow ANALYTICS SENIOR MANAGER 06/03/2015 Office visit Cathi Sparrow ANALYTICS SENIOR MANAGER 11/17/2014 Procedures Shade Scott MD 10/02/2014 Office visit Shade Scott MD 09/03/2014 Office visit Cathi Sparrow ANALYTICS SENIOR MANAGER 07/29/2014 Office visit Shade Scott MD 06/25/2014 Hospital Shade Scott MD 06/24/2014 Office visit Shade Scott MD 04/27/2014 Office visit Shade Scott MD 03/30/2014 Office visit Shade Scott MD 02/26/2014 Office visit Jared Skinner APR N 11/25/2013 Office visit Cathi Sparrow ANALYTICS SENIOR MANAGER 06/30/2013 Office visit Cathi Sparrow ANALYTICS SENIOR MANAGER 06/24/2013 Office visit Cathi Sparrow ANALYTICS SENIOR MANAGER 06/03/2012 Office visit Kostas Araya MD 03/18/2012 Office visit Kostas Araya MD 11/23/2009 Office visit Jaron Suárez MD 04/19/2009 Laboratory Rafa Vides MD
--- OUTSIDE RECORDS SUMMARY | 2019-07-19 22:45 | XMS REPORT ---
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 Aug 03 2016 9:56AM STEPHANIE [...] Chay cy Group Number Start Date BCBS [facility] [id number] N/ A [employer] [id number] Sunday, 2012 BCBS [employer] [place] [id number] Mo 2011 BCBS [employer] [place] [id number] N/ A History of Encounters Visit Date Visit Type Provider 12/05/2017 Office visit Austyn Day DO 06/04/2017 Office visit Cathi Sparrow OWNER CONSULTING ENGINEER 12/14/2016 Office visit Cathi Sparrow OWNER CONSULTING ENGINEER 08/17/2016 Office visit Cathi Sparrow OWNER CONSULTING ENGINEER 08/03/2016 Office visit Cathi Sparrow OWNER CONSULTING ENGINEER 01/24/2016 [facility] Austyn Shay DO 01/07/2016 Office visit Austyn Day DO 06/24/[address] Karlene cruz MD 06/08/2015 Office visit 06/08/2015 Office visit Cathi Sparrow OWNER CONSULTING ENGINEER 06/03/2015 Office visit Cathi Sparrow OWNER CONSULTING ENGINEER 11/17/2014 Procedures Shade Scott MD 10/02/2014 Office visit Shade Scott MD 09/03/2014 Office visit Cathi Sparrow OWNER CONSULTING ENGINEER 07/29/2014 Office visit Shade Scott MD 06/25/2014 Hospital Shade Scott MD 06/24/2014 Office visit Shade Scott MD 04/27/2014 Office visit Shade Scott MD 03/30/2014 Office visit Shade Scott MD 02/26/2014 Office visit Jared Skinner APR N 11/25/2013 Office visit Cathi Sparrow OWNER CONSULTING ENGINEER 06/30/2013 Office visit Cathi Sparrow OWNER CONSULTING ENGINEER 06/24/2013 Office visit Cathi Sparrow OWNER CONSULTING ENGINEER 06/03/2012 Office visit Kostas Araya MD 03/18/2012 Office visit Kostas Araya MD 11/23/2009 Office visit Jaron Suárez MD 04/19/2009 Laboratory Rafa Vides MD
--- OUTSIDE RECORDS SUMMARY | 2019-07-19 22:45 | XMS REPORT ---
Author Author Kendra Ramirez Organization [facility] Address [address] [place], [place] [id number] Care Team Providers Care Supervisor Cytogenetic Laboratory Name Role Phone Karlene Ramirez PCP Unavailable Allergies and Adverse Reactions Name Reaction Notes NO KNOWN DRUG ALLERGIES Plan of Treatment Not available. Medications Active Name Start Date Estimated Completion Date SIG Co mments meloxicam 15 mg oral tablet 06/24/2013 take 1 tablet (15 mg) by oral route once daily meloxicam 15 mg oral tablet 08/25/2013 take 1 tablet (15 mg) by oral route once daily cetirizine 10 mg oral tablet 06/03/2015 davina [...] ONE TABLE T BY MOUTH ONCE DAILY Viibryd 40 mg oral tablet 06/03/2015 take 1 tablet (40 mg) by oral route once daily with food ProAir RespiClick 90 mcg/actuation inhalation aerosol powdr breath activated 06/08/2015 inhale 1 - 2 puffs (90 - 180 mcg) by inhalation route every 4-6 hours as needed Symbicort 160-4.5 mcg/actuation inhalation HFA aerosol inhaler inhale 2 puffs by inhalation route 2 times per day in the morning and evening Name Start Date Expiration Date SIG Comments [...] oral route once daily for 30 days Discontinued Name Start Date [...] route once Problem List Description Status Onset Hypercholesterolemia Active Hyperlipidemia, unspecified Active 06/24/2013 Osteoarthritis Active 06/24/2013 Osteoarthritis Active 09/03/2014 Hypercholesterolemia Active 09/03/2014 Hypertension Active 09/03/2014 Depression Active 09/03/2014 Morbid obesity Active 09/03/2014 Vital Signs Date Time BP-Sys(mm[Hg] BP-Maggy(mm[Hg]) HR(bpm) RR(rpm) Temp WT HT HC BMI BSA BMI Percentile O2 Sat(%) 06/24/2015 3:35:00 PM 180 mmHg 100 mmHg 100 bpm 98.3 F 310.5 lbs 69 i n 45.85 kg/m2 2.62 m2 06/08/2015 2:01:00 PM 138 mmHg 76 mmHg 97 bpm 18 rpm 97.1 F 313.375 lbs 71 i n 43.7065 kg/m 2.6685 m 96 % 06/03/2015 8:43:00 AM 132 mmHg 82 mmHg 91 bpm 20 rpm 97.3 F 313 lbs 71 in 43.65 kg/m2 2.67 m2 96 % 10/02/2014 9:32:00 AM 148 mmHg 102 mmHg 124 bpm 18 rpm 97.8 F 318 lbs 71 in 44.3515 kg/m 2.6881 m 09/03/2014 11:11:00 AM 140 mmHg 78 mmHg 105 bpm 18 rpm 98.3 F 312.5 lbs 68 in 47.51 kg/m2 2.61 m2 97 % 07/29/2014 1:35:00 PM 132 mmHg 84 mmHg 74 bpm 20 rpm 97.5 F 308 lbs 68 in 46.8308 kg/m 2.589 m 06/24/2014 8:39:00 AM 152 mmHg 84 mmHg 73 bpm 18 rpm 96.5 F 312 lbs 68 in 47.44 kg/m2 2.61 m2 04/27/2014 1:13:00 PM 158 mmHg 86 mmHg 88 bpm 18 rpm 97.5 F 307 lbs 68 in 46.6787 kg/m 2.5848 m 03/30/2014 8:29:00 AM 132 mmHg 88 mmHg 81 bpm 18 rpm 97.8 F 310.5 lbs 68 i n 47.21 kg/m2 2.60 m2 02/26/2014 10:48:00 AM 150 mmHg 100 mmHg 103 bpm 18 rpm 96.8 F 310 lbs 70 in 44.4799 kg/m 2.6353 m 96 % 11/25/2013 3:01:00 PM 142 mmHg 80 mmHg 102 bpm 18 rpm 97.8 F 300.125 lbs 68 in 45.63 kg/m2 2.56 m2 98 % 06/30/2013 9:00:00 AM 138 mmHg 76 mmHg 97 bpm 18 rpm 96.7 F 283.562 lbs 68 in 43.1151 kg/m 2.4842 m 98 % 06/24/2013 9:10:00 AM 142 mmHg 84 mmHg 91 bpm 18 rpm 97.3 F 282.125 lbs 68 in 42.90 kg/m2 2.48 m2 97 % 06/03/2012 10:06:00 AM 154 mmHg 92 mmHg 88 bpm 20 rpm 97.1 F 274 lbs 68 in 41.6611 kg/m 2.4419 m 03/18/2012 3:04:00 PM 144 mmHg 82 mmHg 88 bpm 18 rpm 97.8 F 288 lbs 68 in 43.79 kg/m2 2.50 m2 11/23/2009 10:55:00 AM 120 mmHg 80 mmHg 64 bpm 18 rpm 96.7 F 256 lbs Social History Name Description Comments 30 yrs GED Tobacco Use smokes pack a day of cigarettes for 30 years 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 Tobacco Current every day smoker History of Procedures Date Ordered Description Order Status 06/03/2015 12:00 AM COMPREHEN METABOLIC PANEL Returned 06/08/2015 12:[address] THORAX W/O & W/DYE Returned 06/09/2015 12:00 AM SPECIMEN HANDLING OFFICE-LAB Reviewed 06/09/2015 12:00 AM CYTOPATH C/V THIN LAYER Reviewed 06/09/2015 12:00 AM MAMMOGRAM BOTH BREASTS Returned 06/11/2015 12:00 AM TTE W/DOPPLER COMPLETE Returned 03/18/2012 12:00 AM COMPLETE CBC W/AUTO DIFF WBC Reviewed 03/18/2012 12:00 AM COMPREHEN METABOLIC PANEL Reviewed 03/18/2012 12:00 AM LIPID PANEL Reviewed 03/18/2012 12:00 AM GLYCOSYLATED HEMOGLOBIN TEST Reviewed 03/18/2012 12:00 AM ASSAY THYROID STIM HORMONE Reviewed 03/18/2012 12:00 AM VITAMIN B-12 Reviewed 06/03/2012 12:[address] THORAX W/O & W/DYE Reviewed 06/03/2012 12:00 AM Rocephin 1 gram [facility]#[id number] Reviewe d 06/30/2013 12:00 AM CYTOPATH C/V MANUAL Reviewed 06/30/2013 12:00 AM MAMMOGRAM BOTH BREASTS Returned 03/02/2014 12:[address] SOFT TISSUE NECK W/DYE Returned 03/02/2014 12:[address] MAXILLOFACIAL W/O DYE Returned 03/30/2014 12:00 AM MRI LUMBAR SPINE W/O DYE Returned Results Summary Data and Description Results 03/19/2012 8:15 AM WBC 7.0 RBC 4.56 HGB 15.20 g /dLHCT 45.30 %MCV 99.0 fLMCH 33.30 pgMCHC 33.60 g/dLRDW CV 12.80 %MPV 9.40 fLPLT 267 %NEUT 70.10 %%LYMP 21.60 %%MONO 6.80 %%EOS 1.40 %%BASO 0.10 %#NEUT 4.93 #LYMP 1.52 #MONO 0.48 #EOS 0.10 #BASO 0.01 GLUCOSE 144.0 mg/dLSODIUM 139.0 mmol/LPOTASSIUM 3.80 mmol/LCHLORIDE 105.0 mmol/LCO2 24.0 mmol/LBUN 17.0 mg/dLCREATININE 1.0 mg/dLSGOT/AST 13.0 IU/LSGPT/ALT 18.0 IU/LALK PHOS 94.0 IU/LTOTAL PROTEIN 6.80 g/dLALBUMIN 4.10 g/dLTOTAL BILI 0.50 mg/dLCALCIUM 9.50 mg/dLeGFR 58 TRIGLYCERIDES 194.0 mg/dLCHOLESTEROL 219.0 mg/dLHDL 39.0 mg/dLLDL (CALC) 141.0 mg/dLVITAMIN B12 464.0 pg/mLTSH 1.630 uIU/mL 03/30/2014 9:40 AM Treatment/Therapy TPI by Dr. Scott to RL back. used shirley, 1% lido 06/09/2015 8:10 AM GLUCOSE 143.0 mg/dLSODIUM 14 2.0 mmol/LPOTASSIUM 3.80 mmol/LCHLORIDE 105.0 mmol/LCO2 27.0 mmol/LBUN 13.0 mg/dLCREATININE 0.80 mg/dLSGOT/AST 16.0 IU/LSGPT/ALT 25.0 IU/LALK PHOS 101.0 IU/LTOTAL PROTEIN 6.60 g/dLALBUMIN 4.0 g/dLTOTAL BILI 0.50 mg/dLCALCIUM 8.90 mg/dLeGFR >60 mL/min/1.73m History Of Immunizations Not available. 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 Bronchitis, chronic Numbness and Tingling Rectal Bleeding Ganglion Nov 23 2009 10:57AM Hyperlipidemia, unspecified 06/24/2013 Osteoarthritis 06/24/2013 Depression 06/24/2013 Osteoarthritis 09/03/2014 Hypercholesterolemia 09/03/2014 Hypertension 09/03/2014 Depression 09/03/2014 Morbid obesity 09/03/2014 Hyperglycemia Mar 18 2012 3:12PM Kidney Calculus [...] cyst of labia Jun 24 2015 3:39PM Payers Insurance Name Company Name Plan Name Plan Number Policy Number Chay cy Group Number Start Date BCBS Bcbs [employer] [place] [id number] Mo 2011 [employer] [place] [id number] Sunday, 2012 History of Encounters Visit Date Visit Type Provider 06/24/[address] Karlene cruz MD 06/08/2015 Office visit 06/08/2015 Office visit Cathi Sparrow RAIL MAINTENANCE WORKER 06/03/2015 Office visit Cathi Sparrow RAIL MAINTENANCE WORKER 11/17/2014 Procedures Shade Scott MD 10/02/2014 Office visit Shade Scott MD 09/03/2014 Office visit Cathi Sparrow RAIL MAINTENANCE WORKER 07/29/2014 Office visit Shade Scott MD 06/25/2014 Hospital Shade Scott MD 06/24/2014 Office visit Shade Scott MD 04/27/2014 Office visit Shade Scott MD 03/30/2014 Office visit Shade Scott MD 02/26/2014 Office visit Jared Skinner APR N 11/25/2013 Office visit Cathi Sparrow RAIL MAINTENANCE WORKER 06/30/2013 Office visit Cathi Sparrow RAIL MAINTENANCE WORKER 06/24/2013 Office visit Cathi Sparrow RAIL MAINTENANCE WORKER 06/03/2012 Office visit Kostas Araya MD 03/18/2012 Office visit Kostas Araya MD 11/23/2009 Office visit Jaron Suárez MD 04/19/2009 Laboratory Rafa Vides MD
--- OUTSIDE RECORDS SUMMARY | 2019-07-19 22:45 | XMS REPORT ---
Author Author Kendra Sparrow [facility] Address [address] [place], [place] [address] Care Team Providers Care Saw Maker Name Role Phone Cathi Sparrow PCP Unavailable Cathi Sparrow PreferredProvider Unavailable Allergies and Adverse Reactions Name Reaction Notes NO KNOWN DRUG ALLERGIES Plan of Treatment Planned Activity Comments Planned Date Planned Time Plan/Goal Polysomnography 08/24/2015 12:00 AM Medications Active Name Start Date Estimated Completion Date SIG Co mments meloxicam 15 mg oral tablet 06/24/2013 take 1 tablet (15 mg) by oral route once daily meloxicam 15 mg oral tablet 08/25/2013 take 1 tablet (15 mg) by oral route once daily irbesartan-hydrochlorothiazide 150-12.5 mg oral tablet take 1 tablet by oral route once daily amlodipine 5 mg oral tablet take 1 tablet (5 mg) by oral route once daily Trulicity 0.75 mg/0.5 mL subcutaneous pen injector 08/17/2016 inject 0.5 milliliter (0.75 mg) by subcutaneous route every 7 days in the abdomen, thigh, or upper arm rotating injection sites Invokamet XR 150-1,000 mg oral tablet, IR - ER, biphasic 24hr take 2 tablets by oral route once daily in the morning with a meal Invokamet XR 150-1,000 mg oral tablet, IR - ER, biphasic 24hr 12/13/2016 TAKE TWO TABLETS BY MOUTH ONCE DAILY IN THE MORNING WITH A MEAL Cipro 500 mg oral tablet 12/14/2016 12/21/2016 take 1 tablet (500 mg) by oral route 2 times per day for 7 days Crestor 10 mg oral tablet 12/14/2016 03/14/2017 take 1 tablet (10 mg) by oral route once daily at bedtime for 30 days Trulicity 0.75 mg/0.5 mL subcutaneous pen injector 12/14/2016 INJECT 0.5 ML (0.75 MG) SUBCUTANEOUSLY EVERY 7 DAYS IN THE ABDOMEN, THIGH OR UPPER ARM, ROTATING INJECTION SITES Viibryd 40 mg oral tablet 12/14/2016 take 1 tablet (40 mg) by oral route once daily with food Bevespi Aerosphere 9-4.8 mcg inhalation HFA aerosol inhaler 12/14 inhale 2 puffs by inhalation route 2 [...] per day in the morning and evening Discontinued Name Start Date Discontinued Date SIG [...] at bedtime Problem List Description Status Onset Hypercholesterolemia Active Hyperlipidemia, unspecified Active 06/24/2013 Osteoarthritis Active 06/24/2013 Osteoarthritis Active 09/03/2014 Hypercholesterolemia Active 09/03/2014 Hypertension Active 09/03/2014 Depression Active 09/03/2014 Morbid obesity Active 09/03/2014 Abdominal [...] insulin Active 08/17/2016 Mixed hyperlipidemia Active 08/17/2016 Vital Signs Date Time BP-Sys(mm[Hg] BP-Maggy(mm[Hg]) HR(bpm) RR(rpm) Temp WT HT HC BMI BSA BMI Percentile O2 Sat(%) 12/14/2016 9:36:00 AM 128 mmHg 70 mmHg [...] rpm 97.5 F 302 lbs 68 in 45.9185 kg/m 2.5636 m 06/24/2015 3:35:00 PM 180 mmHg 100 mmHg [...] Reviewed 12/14/2016 12:00 AM COMPREHEN METABOLIC PANEL Returned 12/14/2016 12:00 AM LIPID PANEL Returned 12/14/2016 12:00 AM GLYCOSYLATED HEMOGLOBIN TEST Returned 03/18/2012 12:00 AM COMPLETE CBC W/AUTO DIFF WBC Reviewed 03/18/2012 12:00 AM COMPREHEN METABOLIC PANEL Reviewed 03/18/2012 12:00 AM LIPID PANEL Reviewed 03/18/2012 12:00 AM GLYCOSYLATED HEMOGLOBIN TEST Reviewed 03/18/2012 12:00 AM ASSAY THYROID STIM HORMONE Reviewed 03/18/2012 12:00 AM VITAMIN B-12 Reviewed 06/03/2012 12:[address] THORAX W/O & W/DYE Reviewed 06/03/2012 12:00 AM Rocephin 1 gram [facility]#[id number] Reviewe d 06/30/2013 12:00 AM CYTOPATH C/V [...] AA 90 eGFR >60 mL/min/1.73meGFR AA* >60 07/15/2015 10:00 AM GLUCOSE 127.0 mg/dLSODIUM 14 0.0 mmol/LPOTASSIUM 4.20 mmol/LCHLORIDE 104.0 mmol/LCO2 28.0 mmol/LBUN 16.0 mg/dLCREATININE 0.90 mg/dLCALCIUM 8.90 mg/dLAGE 60 GFR NonAA 64 GFR AA 78 eGFR >60 mL/min/1.73meGFR AA* >60 01/24/2016 9:15 AM WBC 7.2 RBC 4.17 HGB 13.90 g /dLHCT 43.30 %MCV 104.0 fLMCH 33.30 pgMCHC 32.10 g/dLRDW SD 51 RDW CV 13.30 %MPV 8.60 fLPLT 202 NRBC# 0.00 NRBC% 0.0 %NEUT 73.50 %%LYMP 19.0 %%MONO 6.0 %%EOS 0.80 %%BASO 0.40 %#NEUT 5.27 #LYMP 1.36 #MONO 0.43 #EOS 0.06 #BASO 0.03 MANUAL DIFF NOT IND GLUCOSE 140.0 mg/dLSODIUM 141.0 mmol/LPOTASSIUM 3.70 mmol/LCHLORIDE 102.0 mmol/LCO2 29.0 mmol/LBUN 12.0 mg/dLCREATININE 0.90 mg/dLCALCIUM 9.0 mg/dLAGE 60 GFR NonAA 64 GFR AA 78 eGFR >60 mL/min/1.73meGFR AA* >60 08/17/2016 8:05 [...] A1C 6.20 %Est Avg Glucose 131.2 mg/dL History Of Immunizations Not available. 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 Bronchitis, chronic Numbness and Tingling Rectal Bleeding Ganglion Nov 23 2009 10:57AM Hyperlipidemia, unspecified 06/24/2013 Osteoarthritis 06/24/2013 Depression 06/24/2013 Osteoarthritis 09/03/2014 Hypercholesterolemia 09/03/2014 Hypertension 09/03/2014 Depression 09/03/2014 Morbid obesity 09/03/2014 Abdominal pain 01/11/2016 Dyspepsia 01/11/2016 History of colon polyps 01/11/2016 Nephrolithiasis 01/11/2016 STEPHANIE (obstructive sleep apnea) 08/07/2016 Chronic obstructive pulmonary disease, unspecified COPD type 08/07/2016 Hyperglycemia 08/07/2016 Major depressive disorder with single episode, in partial re mission 08/07/2016 Essential hypertension 08/17/2016 Uncontrolled type 2 diabetes mellitus wi thout complication, without long-term current use of insulin 08/17/2016 Mixed hyperlipidemia 08/17/2016 Hyperglycemia Mar 18 2012 3:12PM Kidney Calculus [...] Chronic cough Feb 2015 7:09AM Lung nodules Feb 2015 7:09AM Routine gynecological examination Feb 2015 [...] 2016 9:56AM Chronic obstructive pulmonary disease, unspecified 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 D 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 Aug 03 2016 9:56AM STEPHANIE [...] Simple chronic bronchitis Dec 14 2016 9:38AM Payers Insurance Name Company Name Plan Name Plan Number Policy Number Chay cy Group Number Start Date BCBS [employer] [place] [id number] N/ A United [place] [id number] Sunday, 2012 BCBS [employer] [place] [id number] Mo 2011 History of Encounters Visit Date Visit Type Provider 12/14/2016 Office visit Cathi Sparrow SUPERVISOR BAKING 08/17/2016 Office visit Cathi Sparrow SUPERVISOR BAKING 08/03/2016 Office visit Cathi Andrews SUPERVISOR BAKING 01/24/2016 Hospital Austyn Day DO 01/07/2016 Office visit Austyn Day DO 06/24/[address] Karlene cruz MD 06/08/2015 Office visit 06/08/2015 Office visit Cathi Sparrow SUPERVISOR BAKING 06/03/2015 Office visit Cathi Sparrow SUPERVISOR BAKING 11/17/2014 Procedures Shade Scott MD 10/02/2014 Office visit Shade Scott MD 09/03/2014 Office visit Cathi Sparrow SUPERVISOR BAKING 07/29/2014 Office visit Shade Scott MD 06/25/2014 [facility] Shade Scott MD 06/24/2014 Office visit Shade Scott MD 04/27/2014 Office visit Shade Scott MD 03/30/2014 Office visit Shade Scott MD 02/26/2014 Office visit Jared Skinner APR N 11/25/2013 Office visit Cathi Sparrow SUPERVISOR BAKING 06/30/2013 Office visit Cathi Sparrow SUPERVISOR BAKING 06/24/2013 Office visit Cathi Sparrow SUPERVISOR BAKING 06/03/2012 Office visit Kostas Araya MD 03/18/2012 Office visit Ksotas Araya MD 11/23/2009 Office visit Jaron Suárez MD 04/19/2009 Laboratory Rafa Vides MD
--- OUTSIDE RECORDS SUMMARY | 2019-07-19 22:46 | XMS REPORT ---
Author Author Kendra Sparrow Organization [facility] Address [address] [place], [place] [address] Care Team Providers Care Account Assistant Name Role Phone Cathi Sparrow PCP Unavailable [...] (5 mg) by oral route once daily Viibryd 40 mg oral tablet 08/03/2016 take 1 tablet (40 mg) by oral route once daily with food Lipitor 40 mg oral tablet 08/17/2016 take 1 tablet (40 mg) by oral route once daily at bedtime Trulicity 0.75 mg/0.5 mL subcutaneous pen injector 08/17/2016 inject 0.5 milliliter (0.75 mg) by subcutaneous route every 7 days in the abdomen, thigh, or upper arm rotating injection sites Invokamet XR 150-1,000 mg oral tablet, IR - ER, biphasic 24hr take 2 tablets by oral route once daily in the morning with a meal Name Start Date Expiration Date SIG Comments [...] mg) by oral route every 12 hours Problem List Description Status Onset Hypercholesterolemia Active [...] HC BMI BSA BMI Percentile O2 Sat(%) 08/17/2016 1:51:00 PM 136 mmHg 74 mmHg [...] 08/03/2016 12:00 AM METABOLIC PANEL TOTAL CA Returned 08/03/2016 12:00 AM LIPID PANEL Returned 08/03/2016 12:00 AM GLYCOSYLATED HEMOGLOBIN TEST Returned 08/03/2016 12:00 AM ASSAY THYROID STIM HORMONE Returned 03/18/2012 12:00 AM COMPLETE CBC W/AUTO DIFF WBC Reviewed 03/18/2012 12:00 AM COMPREHEN METABOLIC PANEL Reviewed 03/18/2012 12:00 AM LIPID PANEL Reviewed 03/18/2012 12:00 AM GLYCOSYLATED HEMOGLOBIN TEST Reviewed 03/18/2012 12:00 AM ASSAY THYROID STIM HORMONE Reviewed 03/18/2012 12:00 AM VITAMIN B-12 Reviewed 06/03/2012 12:[address] THORAX W/O & W/DYE Reviewed 06/03/2012 12:00 AM Rocephin 1 gram [facility] [place] [facility]#[id number] Reviewe d 06/30/2013 12:00 AM CYTOPATH C/V MANUAL Reviewed 06/30/2013 12:00 AM MAMMOGRAM BOTH BREASTS Reviewed 03/02/2014 12:[address] SOFT TISSUE NECK W/DYE Reviewed 03/02/2014 12:[address] MAXILLOFACIAL W/O DYE Reviewed 03/30/2014 12:00 AM MRI LUMBAR SPINE W/O DYE Reviewed Results Summary Data and Description Results 03/19/2012 [...] 51 eGFR AA* >60 TSH 1.30 uIU/mL History Of Immunizations Not available. History of [...] 2016 9:56AM Chronic obstructive pulmonary disease, unspecified CELL TESTER D type Aug 03 2016 9:56AM STEPHANIE (obstructive sleep apnea) Aug 03 2016 9:56AM Other fatigue Aug 03 2016 9:56AM Essential hypertension Aug 17 2016 1:53PM Uncontrolled type 2 diabetes mellitus wi thout complication, without long-term current use of insulin Aug 17 2016 1:53PM Mixed hyperlipidemia Aug 17 2016 1:53PM Morbid obesity due to excess calories Aug 17 2016 1:53PM Payers Insurance Name Company Name Plan Name Plan Number Policy Number Chay cy Group Number Start Date BCBS [employer] [place] [id number] N/ A [employer] [id number] Sunday, 2012 BCBS [employer] [place] [id number] Mo 2011 History of Encounters Visit Date Visit Type Provider 08/17/2016 Office visit Cathi Sparrow FENCE INSTALLER FOREMAN 08/03/2016 Office visit Cathi Sparrow FENCE INSTALLER FOREMAN 01/24/2016 [facility] Austyn Day DO 01/07/2016 Office visit Austyn Day DO 06/24/[address] Karlene cruz MD 06/08/2015 Office visit 06/08/2015 Office visit Cathi Sparrow FENCE INSTALLER FOREMAN 06/03/2015 Office visit Cathi Sparrow FENCE INSTALLER FOREMAN 11/17/2014 Procedures Shade Scott MD 10/02/2014 Office visit Shade Scott MD 09/03/2014 Office visit Cathi Sparrow FENCE INSTALLER FOREMAN 07/29/2014 Office visit Shade Scott MD 06/25/2014 Hospital Shade Scott MD 06/24/2014 Office visit Shade Scott MD 04/27/2014 Office visit Shade Scott MD 03/30/2014 Office visit Shade Scott MD 02/26/2014 Office visit Jared Skinner APR N 11/25/2013 Office visit Cathi Sparrow FENCE INSTALLER FOREMAN 06/30/2013 Office visit Cathi Sparrow FENCE INSTALLER FOREMAN 06/24/2013 Office visit Cathi Sparrow FENCE INSTALLER FOREMAN 06/03/2012 Office visit Kostas Araya MD 03/18/2012 Office visit Kostas Araya MD 11/23/2009 Office visit Jaron Suárez MD 04/19/2009 Laboratory Rafa Vides MD
--- OUTSIDE RECORDS SUMMARY | 2019-07-19 22:46 | XMS REPORT ---
Author Author Kendra Day Organization [facility] Address [address] [place], [place] [address] Care Team Providers Care Computer Engineer Name Role Phone Austyn Day PCP Unavailable Allergies and Adverse Reactions Name Reaction Notes NO KNOWN DRUG ALLERGIES Plan of Treatment Planned Activity Comments Planned Date Planned Time Plan/Goal POLYSOM 6/> YRS /> JAMES 08/24/2015 12:00 AM Medications Active Name Start Date Estimated Completion Date SIG Co mments meloxicam 15 mg oral tablet 06/24/2013 take 1 tablet (15 mg) by oral route once daily meloxicam 15 mg oral tablet 08/25/2013 take 1 tablet (15 mg) by oral route once daily Viibryd 40 mg oral tablet 12/28/2015 take 1 tablet (40 mg) by oral route once daily with food famotidine 10 mg oral tablet davina e 2 tablets (20 mg) by oral route every 12 hours irbesartan-hydrochlorothiazide 150-12.5 mg oral tablet take 1 tablet by oral route once daily amlodipine 5 mg oral tablet take 1 tablet (5 mg) by oral route once daily Name Start Date Expiration Date SIG Comments [...] colon polyps Active 01/11/2016 Nephrolithiasis Active 01/11/2016 Vital Signs Date Time BP-Sys(mm[Hg] BP-Maggy(mm[Hg]) HR(bpm) RR(rpm) Temp WT HT HC BMI BSA BMI Percentile O2 Sat(%) 01/07/2016 9:56:00 AM 144 mmHg 77 mmHg [...] 06/11/2015 12:00 AM TTE W/DOPPLER COMPLETE Returned 06/24/2015 12:00 AM EXAM OF VAGINA W/SCOPE Reviewed 06/24/2015 12:00 AM DRAINAGE OF SKIN ABSCESS Reviewed 06/24/2015 12:00 AM DRAINAGE OF SKIN ABSCESS Reviewed 03/18/2012 12:00 AM COMPLETE CBC W/AUTO DIFF WBC Reviewed 03/18/2012 12:00 AM COMPREHEN METABOLIC PANEL Reviewed 03/18/2012 12:00 AM LIPID PANEL Reviewed 03/18/2012 12:00 AM GLYCOSYLATED HEMOGLOBIN TEST Reviewed 03/18/2012 12:00 AM ASSAY THYROID STIM HORMONE Reviewed 03/18/2012 12:00 AM VITAMIN B-12 Reviewed 06/03/2012 12:[address] THORAX W/O & W/DYE Reviewed 06/03/2012 12:00 AM Rocephin [address] [facility] [place]#[id number] Reviewe d 06/30/2013 12:00 AM CYTOPATH C/V [...] BILI 0.50 mg/dLCALCIUM 8.90 mg/dLeGFR >60 mL/min/1.73m 07/15/2015 10:00 AM GLUCOSE 127.0 mg/dLSODIUM 14 0.0 mmol/LPOTASSIUM 4.20 mmol/LCHLORIDE 104.0 mmol/LCO2 28.0 mmol/LBUN 16.0 mg/dLCREATININE 0.90 mg/dLCALCIUM 8.90 mg/dLeGFR >60 mL/min/1.73m History Of [...] 09/03/2014 Depression 09/03/2014 Morbid obesity 09/03/2014 Abdominal Pain 01/11/2016 Dyspepsia 01/11/2016 History of colon polyps 01/11/2016 Nephrolithiasis 01/11/2016 Hyperglycemia Mar 18 2012 3:12PM Kidney Calculus [...] of colon polyps Jan 07 2016 10:03AM Payers Insurance Name Company Name Plan Name Plan Number Policy Number Chay cy Group Number Start Date BCBS [facility] [id number] Mo 2011 United [employer] [id number] Sunday, 2012 History of Encounters Visit Date Visit Type Provider 01/07/2016 Office visit Austyn Day DO 06/24/[address] Karlene cruz MD 06/08/2015 Office visit 06/08/2015 Office visit Cathi Sparrow INJECTION MOLDING MACHINE SETTER 06/03/2015 Office visit Cathi Sparrow INJECTION MOLDING MACHINE SETTER 11/17/2014 Procedures Shade Scott MD 10/02/2014 Office visit Shade Scott MD 09/03/2014 Office visit Cathi Sparrow INJECTION MOLDING MACHINE SETTER 07/29/2014 Office visit Shade Scott MD 06/25/2014 Hospital Shade Scott MD 06/24/2014 Office visit Shade Scott MD 04/27/2014 Office visit Shade Scott MD 03/30/2014 Office visit Shade Scott MD 02/26/2014 Office visit Jared Skinner APR N 11/25/2013 Office visit Cathi Sparrow INJECTION MOLDING MACHINE SETTER 06/30/2013 Office visit Cathi Sparrow INJECTION MOLDING MACHINE SETTER 06/24/2013 Office visit Cathi Sparrow INJECTION MOLDING MACHINE SETTER 06/03/2012 Office visit Kostas Araya MD 03/18/2012 Office visit Kostas Araya MD 11/23/2009 Office visit Jaron Suárez MD 04/19/2009 Laboratory Rafa Vides MD
--- OUTSIDE RECORDS SUMMARY | 2019-07-19 22:46 | XMS REPORT ---
Author Author Kendra Day Organization [facility] Address [address] [place], [place] [address] Care Team Providers Care Television Engineer Name Role Phone Austyn Day PCP [...] Reviewed 06/03/2012 12:00 AM Rocephin 1 gram [facility] [place][id number] Reviewe d 06/30/2013 12:00 AM CYTOPATH C/V [...] Chay cy Group Number Start Date BCBS [facility] [id number] Mo 2011 United [place] [employer] [id number] Sunday, 2012 History of Encounters Visit Date Visit Type Provider 01/07/2016 Office visit Austyn Day DO 06/24/[address] Karlene cruz MD 06/08/2015 Office visit 06/08/2015 Office visit Cathi Sparrow IT PROGRAMMER 06/03/2015 Office visit Cathi Sparrow IT PROGRAMMER 11/17/2014 Procedures Shade Scott MD 10/02/2014 Office visit Shade Scott MD 09/03/2014 Office visit Cathi Sparrow IT PROGRAMMER 07/29/2014 Office visit Shade Scott MD 06/25/2014 Hospital Shade Scott MD 06/24/2014 Office visit Shade Scott MD 04/27/2014 Office visit Shade Scott MD 03/30/2014 Office visit Shade Scott MD 02/26/2014 Office visit Jared Skinner APR N 11/25/2013 Office visit Cathi Sparrow IT PROGRAMMER 06/30/2013 Office visit Cathi Sparrow IT PROGRAMMER 06/24/2013 Office visit Cathi Sparrow IT PROGRAMMER 06/03/2012 Office visit Kostas Araya MD 03/18/2012 Office visit Kostas Araya MD 11/23/2009 Office visit Jaron Suárez MD 04/19/2009 Laboratory Rafa Vides MD
--- OUTSIDE RECORDS SUMMARY | 2019-07-19 22:47 | XMS REPORT ---
Author Author Kendra Ramirez Organization [facility] Address [address] [place], [place] [address] Care Team Providers Care Steward/Stewardess Name Role Phone Karlene Ramirez PCP Unavailable [...] AM Rocephin 1 gram [facility]#[id number] Reviewe d 06/30/2013 12:00 AM CYTOPATH C/V [...] 2015 3:57PM Obesity Aug 24 2015 3:57PM Payers Insurance Name Company Name Plan Name Plan Number Policy Number Chay cy Group Number Start Date BCBS [employer] [place] [id number] Mo , 2011 [employer] [id number] Sunday, 2012 History of Encounters Visit Date Visit Type Provider 06/24/[address] Karlene cruz MD 06/08/2015 Office visit 06/08/2015 Office visit Cathi Sparrow EDGE ROLLER 06/03/2015 Office visit Cathi Sparrow EDGE ROLLER 11/17/2014 Procedures Shade Scott MD 10/02/2014 Office visit Shade Scott MD 09/03/2014 Office visit Cathi Sparrow EDGE ROLLER 07/29/2014 Office visit Shade Scott MD 06/25/2014 Hospital Shade Scott MD 06/24/2014 Office visit Shade Scott MD 04/27/2014 Office visit Shade Scott MD 03/30/2014 Office visit Shade Scott MD 02/26/2014 Office visit Jared Skinner APR N 11/25/2013 Office visit Cathi Sparrow EDGE ROLLER 06/30/2013 Office visit Cathi Sparrow EDGE ROLLER 06/24/2013 Office visit Cathi Sparrow EDGE ROLLER 06/03/2012 Office visit Kostas Araya MD 03/18/2012 Office visit Kostas Araya MD 11/23/2009 Office visit Jaron Suárez MD 04/19/2009 Laboratory Rafa Vides MD
--- OUTSIDE RECORDS SUMMARY | 2019-07-19 22:47 | XMS REPORT ---
Author Author Kendra Sparrow Organization [facility] Address [address] [place], [place] [id number] Care Team Providers Care Drier Feeder Name Role Phone Cathi Sparrow PCP Unavailable Cathi Sparrow PreferredProvider Unavailable Allergies and Adverse Reactions Name Reaction Notes NO KNOWN DRUG ALLERGIES Plan of Treatment Planned Activity Comments Planned Date Planned Time Plan/Goal Polysomnography 08/24/2015 12:00 AM Basic metabolic profile 08/03/2016 12:00 AM .Lipid Panel 08/03/2016 12:00 AM Hemoglobin A1C 08/03/2016 12:00 AM TSH 08/03/2016 12:00 AM Medications Active Name Start Date [...] by oral route once daily with food Name Start Date Expiration Date SIG Comments [...] episode, in partial re mission Active 08/07/2016 Vital Signs Date Time BP-Sys(mm[Hg] BP-Maggy(mm[Hg]) HR(bpm) RR(rpm) Temp WT HT HC BMI BSA BMI Percentile O2 Sat(%) 08/03/2016 9:52:00 AM 118 mmHg 70 mmHg [...] Reviewed 06/03/2012 12:00 AM Rocephin [address] [facility]#[id number] Reviewe d 06/30/2013 12:00 AM CYTOPATH C/V [...] AA 78 eGFR >60 mL/min/1.73meGFR AA* >60 History Of Immunizations Not available. 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 Karlene cruz MD 06/08/2015 Office visit 06/08/2015 Office visit Cathi Sparrow SEASONAL GREENERY BUNDLER 06/03/2015 Office visit Cathi Sparrow SEASONAL GREENERY BUNDLER 11/17/2014 Procedures Shade Scott MD 10/02/2014 Office visit Shade Scott MD 09/03/2014 Office visit Cathi Sparrow SEASONAL GREENERY BUNDLER 07/29/2014 Office visit Shade Scott MD 06/25/2014 Hospital Shade Scott MD 06/24/2014 Office visit Shade Scott MD 04/27/2014 Office visit Shade Scott MD 03/30/2014 Office visit Shade Scott MD 02/26/2014 Office visit Jared Skinner APR N 11/25/2013 Office visit Cathi Sparrow SEASONAL GREENERY BUNDLER 06/30/2013 Office visit Cathi Sparrow SEASONAL GREENERY BUNDLER 06/24/2013 Office visit Cathi Sparrow SEASONAL GREENERY BUNDLER 06/03/2012 Office visit Kostas Araya MD 03/18/2012 Office visit Kostas Araya MD 11/23/2009 Office visit Jaron Suárez MD 04/19/2009 Laboratory Rafa Vides MD
--- OUTSIDE RECORDS SUMMARY | 2019-07-19 22:47 | XMS REPORT ---
Author Author Kendra Sparrow [facility] Address [address] [place], [place] [address] Care Team Providers Care Meat Counter Clerk Name Role Phone Cathi Sparrow PCP Unavailable Cathi Sparrow PreferredProvider Unavailable Allergies and Adverse Reactions Name Reaction Notes NO KNOWN DRUG ALLERGIES Plan of Treatment Planned Activity Comments Planned Date Planned Time Plan/Goal Polysomnography 08/24/2015 12:00 AM CMP (comprehensive metabolic panel) 12/14/2016 12:00 AM .Lipid Panel 12/14/2016 12:00 AM Hemoglobin A1C 12/14/2016 12:00 AM Medications Active Name Start Date [...] THYROID STIM HORMONE Reviewed 03/18/2012 12:00 AM COMPLETE CBC W/AUTO DIFF WBC Reviewed 03/18/2012 12:00 AM COMPREHEN METABOLIC PANEL Reviewed 03/18/2012 12:00 AM LIPID PANEL Reviewed 03/18/2012 12:00 AM GLYCOSYLATED HEMOGLOBIN TEST Reviewed 03/18/2012 12:00 AM ASSAY THYROID STIM HORMONE Reviewed 03/18/2012 12:00 AM VITAMIN B-12 Reviewed 06/03/2012 12:[address] THORAX W/O & W/DYE Reviewed 06/03/2012 12:00 AM Rocephin 1 gram [facility]#[id number] Reviewe d 06/30/2013 12:00 AM CYTOPATH C/V [...] 2016 9:56AM Chronic obstructive pulmonary disease, unspecified 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 Karlene cruz MD 06/08/2015 Office visit 06/08/2015 Office visit Cathi Sparrow REGIONAL SALES ENGINEER 06/03/2015 Office visit Cathi Sparrow REGIONAL SALES ENGINEER 11/17/2014 Procedures Shade Scott MD 10/02/2014 Office visit Shade Scott MD 09/03/2014 Office visit Cathi Sparrow REGIONAL SALES ENGINEER 07/29/2014 Office visit Shade Scott MD 06/25/2014 Hospital Shade Scott MD 06/24/2014 Office visit Shade Scott MD 04/27/2014 Office visit Shade Scott MD 03/30/2014 Office visit Shade Scott MD 02/26/2014 Office visit Jared Skinner APR N 11/25/2013 Office visit Cathi Sparrow REGIONAL SALES ENGINEER 06/30/2013 Office visit Cathi Sparrow APRN 06/24/2013 Office visit Cathi Sparrow REGIONAL SALES ENGINEER 06/03/2012 Office visit Kostas Araya MD 03/18/2012 Office visit Kostas Araya MD 11/23/2009 Office visit Jaron Suárez MD 04/19/2009 Laboratory Rafa Vides MD
--- OUTSIDE RECORDS SUMMARY | 2019-07-19 22:48 | XMS REPORT ---
Author Author Kendra Scott Organization [facility] Address [address] [place], [place] [id number] Care Team Providers Care Framing Inspector Name Role Phone Shade Scott PCP Allergies and Adverse Reactions Name Reaction Notes NO KNOWN DRUG ALLERGIES Plan of Treatment Not available. Medications Active Name Start Date Estimated Completion Date SIG Co mments meloxicam 15 mg oral tablet 06/24/2013 take 1 tablet (15 mg) by oral route once daily meloxicam 15 mg oral tablet 08/25/2013 take 1 tablet (15 mg) by oral route once daily Claritin 10 mg oral tablet 09/03/2014 take 1 tablet (10 mg) by oral route once daily Singulair 10 mg oral tablet 09/03/2014 take 1 tablet (10 mg) by oral route once daily in the evening Viibryd 40 mg oral tablet 09/03/2014 take 1 tablet (40 mg) by oral route once daily with food gabapentin 100 mg oral capsule 11/23/2014 T ABDIAS ONE CAPSULE BY MOUTH THREE TIMES DAILY losartan 50 mg oral tablet 02/22/2015 TAKE ONE TABLE T BY MOUTH ONCE DAILY Name Start Date Expiration Date SIG Comments [...] every 6 hours as needed for pain Problem List Description Status Onset Hypercholesterolemia Active Hyperlipidemia, unspecified Active 06/24/2013 Osteoarthritis Active 06/24/2013 Osteoarthritis Active 09/03/2014 Hypercholesterolemia Active 09/03/2014 Hypertension Active 09/03/2014 Depression Active 09/03/2014 Morbid obesity Active 09/03/2014 Vital Signs Date Time BP-Sys(mm[Hg] BP-Maggy(mm[Hg]) HR(bpm) RR(rpm) Temp WT HT HC BMI BSA BMI Percentile O2 Sat(%) 10/02/2014 9:32:00 AM 148 mmHg 102 mmHg [...] of Procedures Date Ordered Description Order Status 03/18/2012 12:00 AM COMPLETE CBC W/AUTO DIFF WBC Reviewed 03/18/2012 12:00 AM COMPREHEN METABOLIC PANEL Reviewed 03/18/2012 12:00 AM LIPID PANEL Reviewed 03/18/2012 12:00 AM GLYCOSYLATED HEMOGLOBIN TEST Reviewed 03/18/2012 12:00 AM ASSAY THYROID STIM HORMONE Reviewed 03/18/2012 12:00 AM VITAMIN B-12 Reviewed 06/03/2012 12:[address] THORAX W/O & W/DYE Reviewed 06/03/2012 12:00 AM Rocephin 1 gram [facility]#[id number] Reviewe d 06/30/2013 12:00 AM CYTOPATH C/V [...] to RL back. used marcaine, 1% lido History Of Immunizations Not available. History of [...] 9:49AM Lumbar spondylosis Oct 02 2014 9:49AM Payers Insurance Name Company Name Plan Name Plan Number Policy Number Chay cy Group Number Start Date Bcbs [employer] [place] [id number] Mo 2011 [employer] Insurance [employer] [id number] Sunday, 2012 History of Encounters Visit Date Visit Type Provider 11/17/2014 Procedures Shade Scott MD 10/02/2014 Office visit Shade Scott MD 09/03/2014 Office visit Cathi Sparrow CONCRETE HANDLER 07/29/2014 Office visit Shade Scott MD 06/25/2014 Hospital Shade Scott MD 06/24/2014 Office visit Shade Scott MD 04/27/2014 Office visit Shade Scott MD 03/30/2014 Office visit Shade Scott MD 02/26/2014 Office visit Jared Skinner APR N 11/25/2013 Office visit Cathi Sparrow CONCRETE HANDLER 06/30/2013 Office visit Cathi Sparrow CONCRETE HANDLER 06/24/2013 Office visit Cathi Sparrow CONCRETE HANDLER 06/03/2012 Office visit Kostas Araya MD 03/18/2012 Office visit Kostas Araya MD 11/23/2009 Office visit Jaron Suárez MD 04/19/2009 Laboratory Rafa Vides MD
--- OUTSIDE RECORDS SUMMARY | 2019-07-19 22:48 | XMS REPORT ---
Author Author Kendra Ramirez Organization [facility] Address [address] [place], [place] [phone] Care Team Providers Care Clinical Fellow Name Role Phone Karlene Ramirez PCP Unavailable [...] Reviewed 06/03/2012 12:00 AM Rocephin [address] [facility]#[id number] Reviewe d 06/30/2013 12:00 AM CYTOPATH C/V [...] Number Start Date BCBS Bcbs Of [place] [id number] Mo , 2011 [email or web address] [id number] Sunday, March 18, 2012 History of Encounters Visit Date Visit Type Provider 06/24/[address] Karlene cruz MD 06/08/2015 Office visit 06/08/2015 Office visit Cathi Sparrow BRILLIANDEER LOOPER 06/03/2015 Office visit Cathi Sparrow BRILLIANDEER LOOPER 11/17/2014 Procedures Shade Scott MD 10/02/2014 Office visit Shade Scott MD 09/03/2014 Office visit Cathi Sparrow BRILLIANDEER LOOPER 07/29/2014 Office visit Sahde Scott MD 06/25/2014 Hospital Shade Scott MD 06/24/2014 Office visit Shade Scott MD 04/27/2014 Office visit Shade Scott MD 03/30/2014 Office visit Shade Scott MD 02/26/2014 Office visit Jared Skinner APR N 11/25/2013 Office visit Cathi Sparrow BRILLIANDEER LOOPER 06/30/2013 Office visit Cathi Sparrow BRILLIANDEER LOOPER 06/24/2013 Office visit Cathi Sparrow BRILLIANDEER LOOPER 06/03/2012 Office visit Kostas Araya MD 03/18/2012 Office visit Kostas Araya MD 11/23/2009 Office visit Jaron Suárez MD 04/19/2009 Laboratory Rafa Vides MD
--- OUTSIDE RECORDS SUMMARY | 2019-07-19 22:48 | XMS REPORT ---
Author Author Kendra Sparrow [facility] Address [address] [place], [place] [phone] Care Team Providers Care Copy Technician Name Role Phone Cathi Sparrow PCP Unavailable Allergies and Adverse Reactions Name Reaction Notes NO KNOWN DRUG ALLERGIES Plan of Treatment Planned Activity Comments Planned Date Planned Time Plan/Goal CT THORAX W/O & W/DYE 06/08/2015 12:00 AM MAMMOGRAM BOTH BREASTS 06/09/2015 12:00 AM Medications Active Name Start Date [...] oral route once daily in the evening Problem List Description Status Onset Hypercholesterolemia Active Hyperlipidemia, unspecified Active 06/24/2013 Osteoarthritis Active 06/24/2013 Osteoarthritis Active 09/03/2014 Hypercholesterolemia Active 09/03/2014 Hypertension Active 09/03/2014 Depression Active 09/03/2014 Morbid obesity Active 09/03/2014 Vital Signs Date Time BP-Sys(mm[Hg] BP-Maggy(mm[Hg]) HR(bpm) RR(rpm) Temp WT HT HC BMI BSA BMI Percentile O2 Sat(%) 06/08/2015 2:01:00 PM 138 mmHg 76 mmHg [...] 06/03/2015 12:00 AM COMPREHEN METABOLIC PANEL Returned 06/09/2015 12:00 AM SPECIMEN HANDLING OFFICE-LAB Reviewed 06/09/2015 12:00 AM CYTOPATH C/V THIN LAYER Reviewed 03/18/2012 12:00 AM COMPLETE CBC W/AUTO DIFF WBC Reviewed 03/18/2012 12:00 AM COMPREHEN METABOLIC PANEL Reviewed 03/18/2012 12:00 AM LIPID PANEL Reviewed 03/18/2012 12:00 AM GLYCOSYLATED HEMOGLOBIN TEST Reviewed 03/18/2012 12:00 AM ASSAY THYROID STIM HORMONE Reviewed 03/18/2012 12:00 AM VITAMIN B-12 Reviewed 06/03/2012 12:[address] THORAX W/O & W/DYE Reviewed 06/03/2012 12:00 AM Rocephin 1 gram [facility]#[id number] Reviewe d 06/30/2013 12:00 AM CYTOPATH C/V [...] unspecified chronic bronchitis type Feb 2015 2:03PM Payers Insurance Name Company Name Plan Name Plan Number Policy Number Chay cy Group Number Start Date BCBS Bcbs [facility] [id number] [place], 2011 [email or web address] Citizen Of [place] Insurance Company [employer] [id number] Sunday, 2012 History of Encounters Visit Date Visit Type Provider 06/08/2015 Office visit 06/08/2015 Office visit Cathi Sparrow ORACLE DATA WAREHOUSE DEVELOPER 06/03/2015 Office visit Cathi Sparrow ORACLE DATA WAREHOUSE DEVELOPER 11/17/2014 Procedures Shade Scott MD 10/02/2014 Office visit Shade Scott MD 09/03/2014 Office visit Cathi Sparrow ORACLE DATA WAREHOUSE DEVELOPER 07/29/2014 Office visit Shade Scott MD 06/25/2014 Hospital Shade Scott MD 06/24/2014 Office visit Shade Scott MD 04/27/2014 Office visit Shade Scott MD 03/30/2014 Office visit Shade Scott MD 02/26/2014 Office visit Jared Skinner APR N 11/25/2013 Office visit Cathi Sparrow ORACLE DATA WAREHOUSE DEVELOPER 06/30/2013 Office visit Cathi Sparrow ORACLE DATA WAREHOUSE DEVELOPER 06/24/2013 Office visit Cathi Sparrow ORACLE DATA WAREHOUSE DEVELOPER 06/03/2012 Office visit Kostas Araya MD 03/18/2012 Office visit Kostas Araya MD 11/23/2009 Office visit Jaron Suárez MD 04/19/2009 Laboratory Rafa Vides MD
--- OUTSIDE RECORDS SUMMARY | 2019-07-19 22:48 | XMS REPORT ---
Author Author Kendra Sparrow Organization [facility] Address [address] [place], [place] [phone] Care Team Providers Care Press Setter Name Role Phone Cathi Sparrow PCP Unavailable Allergies and Adverse Reactions Name Reaction Notes NO KNOWN DRUG ALLERGIES Plan of Treatment Planned Activity Comments Planned Date Planned Time Plan/Goal COMPREHEN METABOLIC PANEL 06/03/2015 12:00 AM Medications Active Name Start Date [...] HC BMI BSA BMI Percentile O2 Sat(%) 06/03/2015 8:43:00 AM 132 mmHg 82 mmHg [...] Reviewed 06/03/2012 12:00 AM Rocephin 1 gram [facility]#[id number] Reviewe d 06/30/2013 12:00 AM CYTOPATH C/V [...] 8:47AM Screening Mammogram Jun 03 2015 10:09AM Payers Insurance Name Company Name Plan Name Plan Number Policy Number Chay cy Group Number [id number] [place] 2011 [employer] [id number] Sunday, 2012 History of Encounters Visit Date Visit Type Provider 06/03/2015 Office visit Cathi Sparrow SQUADRON WORKER 11/17/2014 Procedures Shade Scott MD 10/02/2014 Office visit Shade Scott MD 09/03/2014 Office visit Cathi Sparrow SQUADRON WORKER 07/29/2014 Office visit Shade Scott MD 06/25/2014 Hospital Shade Scott MD 06/24/2014 Office visit Shade Scott MD 04/27/2014 Office visit Shade Scott MD 03/30/2014 Office visit Shade Scott MD 02/26/2014 Office visit Jared Skinner APR N 11/25/2013 Office visit Cathi Sparrow SQUADRON WORKER 06/30/2013 Office visit Cathi Sparrow APRN 06/24/2013 Office visit Cathi Sparrow APRN 06/03/2012 Office visit Kostas Araya MD 03/18/2012 Office visit Kostas Araya MD 11/23/2009 Office visit Jaron Suárez MD 04/19/2009 Laboratory Rafa Vides MD
--- OUTSIDE RECORDS SUMMARY | 2019-07-19 22:48 | XMS REPORT ---
Author Author Kendra Araya Organization [facility] Address [address] [place], [place] [phone] Care Team Providers Care Lining Ironer Name Role Phone Kostas Araya PCP Unavailable Allergies and Adverse Reactions Name Reaction Notes NO KNOWN DRUG ALLERGIES Plan of Treatment Not available. Medications Active Name Start Date Estimated Completion Date SIG Co mments meloxicam oral tablet 15 mg 06/24/2013 take 1 tablet (15 mg) by oral route once daily losartan oral tablet 50 mg 06/24/2013 take 1 tablet (50 mg) by oral route once daily meloxicam oral tablet 15 mg 08/25/2013 take 1 tablet (15 mg) by oral route once daily Claritin oral tablet 10 mg 09/03/2014 take 1 tablet (10 mg) by oral route once daily Singulair oral tablet 10 mg 09/03/2014 take 1 tablet (10 mg) by oral route once daily in the evening Viibryd oral tablet 40 mg 09/03/2014 take 1 tablet (40 mg) by oral route once daily with food Name Start Date Expiration Date SIG Comments Bactrim DS oral tablet 800-160 mg 09/03/2014 09/10/2014 take 1 tablet by oral route 2 times a day for 7 days Discontinued Name Start Date Discontinued Date SIG Comments Hyzaar Oral Tablet 100-12.5 mg 03/18/2012 t william 1 tablet by oral route once daily Simvastatin Oral Tablet 80 mg 03/18/2012 ta ke 1 tablet (80 mg) by oral route once daily in the evening Aleve Oral Tablet 220 mg 03/18/2012 take 1 tablet (220 mg) by oral route every 12 hours as needed Fluoxetine Oral 20 mg Oral Capsule 03/18/2012 one ev davidson other day fiber laxative 03/18/2012 one every other day Mobic Oral tablet 15 mg 06/24/2013 take 1 t ablet (15 mg) by oral route once daily Zanaflex Oral capsule 4 mg 06/24/2013 may take 1 tab let every 8hrs prn Cymbalta Oral capsule,delayed release(DR/EC) 30 mg 03/18/2012 06/24/2013 take 1 capsule by oral route once a day (before a meal) Percocet Oral tablet 5-325 mg 03/19/2012 06/24/2013 ta ke 1 tablet by oral route every 6 hours as needed fluoxetine oral capsule 40 mg 06/24/2013 ta ke 1 capsule (40 mg) by oral route once daily in the morning switch to Viibryd simvastatin oral tablet 40 mg 06/24/2013 07/29/2014 ta ke 1 tablet (40 mg) by oral route once daily in the evening meloxicam oral tablet 15 mg 11/04/2013 07/29/2014 take 1 tablet (15 mg) by oral route once daily Protonix oral tablet,delayed release (DR/EC) 40 mg 11/25/2013 07/29/2014 take 1 tablet (40 mg) by oral route once daily Claritin oral tablet 10 mg 11/25/2013 03/30/2014 take 1 tablet (10 mg) by oral route once daily losartan oral tablet 50 mg 01/21/2014 03/30/2014 TAKE ONE TABLET BY MOUTH EVERY DAY hydrocodone-acetaminophen oral tablet 5-325 mg 02/26/2014 take 1 tablet by oral route [...] AM CT THORAX W/O & W/DYE Reviewed 06/30/2013 12:00 AM CYTOPATH C/V MANUAL [...] Number Start Date Bcbs [employer] [place] [id number] Mo 2011 [employer] [id number] Sunday, 2012 History of Encounters Visit Date Visit Type Provider 10/02/2014 Office visit Shade Scott MD 09/03/2014 Office visit Cathi Sparrow ROVING MARKER 07/29/2014 Office visit Shade Scott MD 06/25/2014 Hospital Shade Scott MD 06/24/2014 Office visit Shade Scott MD 04/27/2014 Office visit Shade Scott MD 03/30/2014 Office visit Shade Scott MD 02/26/2014 Office visit Jared Skinner APR N 11/25/2013 Office visit Cathi Sparrow ROVING MARKER 06/30/2013 Office visit Cathi Sparrow ROVING MARKER 06/24/2013 Office visit Cathi Sparrow ROVING MARKER 06/03/2012 Office visit Kostas Araya MD 03/18/2012 Office visit Kostas Araya MD 11/23/2009 Office visit Jaron Suárez MD 04/19/2009 Laboratory Rafa Vides MD
--- OUTSIDE RECORDS SUMMARY | 2019-07-19 22:49 | XMS REPORT ---
Author Author Kendra Sparrow Organization [facility] Address [address] [place], [place] [phone] Care Team Providers Care Senior Quality Manager Name Role Phone Cathi Sparrow PCP Unavailable Allergies and Adverse Reactions Name Reaction Notes NO KNOWN DRUG ALLERGIES Plan of Treatment Planned Activity Comments Planned Date Planned Time Plan/Goal COMPREHEN METABOLIC PANEL 06/03/2015 12:[address] THORAX W/O & W/DYE 06/08/2015 12:00 AM Medications Active Name Start Date [...] AM Rocephin 1 gram [facility]#[id number] Reviewe d 06/30/2013 12:00 AM CYTOPATH C/V [...] 7:09AM Lung nodules Jun 08 2015 7:09AM Payers Insurance Name Company Name Plan Name Plan Number Policy Number Chay cy Group Number Start Date BCBS [facility] [id number] Mo 2011 [employer] [id number] Sunday, 2012 History of Encounters Visit Date Visit Type Provider 06/03/2015 Office visit Cathi Sparrow MEDICAL AND HEALTH SERVICES MANAGER 11/17/2014 Procedures Shade Scott MD 10/02/2014 Office visit Shade Scott MD 09/03/2014 Office visit Cathi Sparrow MEDICAL AND HEALTH SERVICES MANAGER 07/29/2014 Office visit Shade Scott MD 06/25/2014 Hospital Shade Scott MD 06/24/2014 Office visit Shade Scott MD 04/27/2014 Office visit Shade Scott MD 03/30/2014 Office visit Shade Scott MD 02/26/2014 Office visit Jared Skinner APR N 11/25/2013 Office visit Cathi Sparrow MEDICAL AND HEALTH SERVICES MANAGER 06/30/2013 Office visit Cathi Sparrow MEDICAL AND HEALTH SERVICES MANAGER 06/24/2013 Office visit Cathi Sparrow MEDICAL AND HEALTH SERVICES MANAGER 06/03/2012 Office visit Kostas Araya MD 03/18/2012 Office visit Kostas Araya MD 11/23/2009 Office visit Jaron Suárez MD 04/19/2009 Laboratory Rafa Vides MD
--- OUTSIDE RECORDS SUMMARY | 2019-07-19 22:49 | XMS REPORT ---
Author Author Kendra Ramirez Organization [facility] Address [address] [place], [place] [id number] Care Team Providers Care Fermentation Operator Name Role Phone Karlene Ramirez PCP Unavailable [...] per day in the morning and evening Viibryd 40 mg oral tablet 12/28/2015 take [...] 12:00 AM Rocephin [address] [facility]#[id number] Reviewe d 06/30/2013 12:00 AM CYTOPATH C/V [...] Jun 08 2015 2:03PM Screening breast examination b 2015 [...] Group Number Start Date BCBS Bcbs Of [place] [id number] Mo nd, 2011 [employer] [id number] Sunday, 2012 History of Encounters Visit Date Visit Type Provider 06/24/[address] Karlene cruz MD 06/08/2015 Office visit 06/08/2015 Office visit Cathi Sparrow STONEHAND 06/03/2015 Office visit Cathi Sparrow STONEHAND 11/17/2014 Procedures Shade Scott MD 10/02/2014 Office visit Shade Scott MD 09/03/2014 Office visit Cathi Sparrow STONEHAND 07/29/2014 Office visit Shade Scott MD 06/25/2014 Hospital Shade Scott MD 06/24/2014 Office visit Shade Scott MD 04/27/2014 Office visit Shade Scott MD 03/30/2014 Office visit Shade Scott MD 02/26/2014 Office visit Jared Skinner APR N 11/25/2013 Office visit Cathi Sparrow STONEHAND 06/30/2013 Office visit Cathi Sparrow STONEHAND 06/24/2013 Office visit Cathi Sparrow STONEHAND 06/03/2012 Office visit Kostas Araya MD 03/18/2012 Office visit Kostas Araya MD 11/23/2009 Office visit Jaron Suárez MD 04/19/2009 Laboratory Rafa Vides MD
--- OUTSIDE RECORDS SUMMARY | 2019-07-19 22:49 | XMS REPORT ---
Author Author Kendra Sparrow Organization [facility] Address [address] [place], [place] [id number] Care Team Providers Care Forensic Engineer Name Role Phone Cathi Sparrow PCP Unavailable [...] 06/03/2012 12:00 AM Rocephin 1 gram [facility]#6399-6091-58 Reviewe d 06/30/2013 12:00 AM CYTOPATH C/V [...] Number Start Date BCBS [facility] [id number] Mo 2011 [employer] [id number] Sunday, 2012 History of Encounters Visit Date Visit Type Provider 06/03/2015 Office visit Cathi Sparrow OXYACETYLENE WELDER 11/17/2014 Procedures Shade Scott MD 10/02/2014 Office visit Shade Scott MD 09/03/2014 Office visit Cathi Sparrow OXYACETYLENE WELDER 07/29/2014 Office visit Shade Scott MD 06/25/2014 Hospital Shade Scott MD 06/24/2014 Office visit Shade Scott MD 04/27/2014 Office visit Shade Scott MD 03/30/2014 Office visit Shade Scott MD 02/26/2014 Office visit Jared Skinner APR N 11/25/2013 Office visit Cathi Sparrow OXYACETYLENE WELDER 06/30/2013 Office visit Cathi Sparrow OXYACETYLENE WELDER 06/24/2013 Office visit Cathi Sparrow OXYACETYLENE WELDER 06/03/2012 Office visit Kostas Araya MD 03/18/2012 Office visit Kostas Araya MD 11/23/2009 Office visit Jaron Suárez MD 04/19/2009 Laboratory Rafa Vides MD
--- OUTSIDE RECORDS SUMMARY | 2019-07-19 22:49 | XMS REPORT ---
Author Author Kendra Scott Organization [facility] Address [address] [place], [place] [id number] Care Team Providers Care Long Distance Operator Name Role Phone Shade Scott PCP Allergies [...] Reviewed 06/03/2012 12:00 AM Rocephin 1 gram [facility]#[id number] Reviewe d 06/30/2013 12:00 AM CYTOPATH C/V [...] Number Start Date Bcbs Bcbs [employer] [place] [id number] Mo 2011 [employer] [place] [id number] Sunday, 2012 History of Encounters Visit Date Visit Type Provider 11/17/2014 Procedures Shade Scott MD 10/02/2014 Office visit Shade Scott MD 09/03/2014 Office visit Cathi Sparrow DIGITAL MARKETING LEAD 07/29/2014 Office visit Shade Scott MD 06/25/2014 Hospital Shade Scott MD 06/24/2014 Office visit Shade Scott MD 04/27/2014 Office visit Shade Scott MD 03/30/2014 Office visit Shade Scott MD 02/26/2014 Office visit Jared Skinner APR N 11/25/2013 Office visit Cathi Sparrow DIGITAL MARKETING LEAD 06/30/2013 Office visit Cathi Sparrow DIGITAL MARKETING LEAD 06/24/2013 Office visit Cathi Sparrow DIGITAL MARKETING LEAD 06/03/2012 Office visit Kostas Araya MD 03/18/2012 Office visit Kostas Araya MD 11/23/2009 Office visit Jaron Suárez MD 04/19/2009 Laboratory Rafa Vides MD
--- OUTSIDE RECORDS SUMMARY | 2019-07-19 22:50 | XMS REPORT ---
Author Author Kendra Sparrow [facility] Address [address] [place], [place] [address] Care Team Providers Care Automotive Parts Counter Assistant Name Role Phone Cathi Sparrow PCP [...] 06/03/2012 12:00 AM Rocephin 1 gram [facility]#[id number] Reviewe d 06/30/2013 12:00 AM CYTOPATH C/V [...] 24 2014 8:41AM Lumbar degenerative disc disease b 2014 8:41AM Myofascial pain Jun 24 2014 [...] Group Number Start Date BCBS Bcbs [employer] [place] [id number] Mo 2011 [employer] [id number] Sunday, 2012 History of Encounters Visit Date Visit Type Provider 06/08/2015 Office visit 06/08/2015 Office visit Cathi Sparrow PHD INTERNSHIP 06/03/2015 Office visit Cathi Sparrow PHD INTERNSHIP 11/17/2014 Procedures Shade Scott MD 10/02/2014 Office visit Shade Scott MD 09/03/2014 Office visit Cathi Sparrow PHD INTERNSHIP 07/29/2014 Office visit Shade Scott MD 06/25/2014 Hospital Shade Scott MD 06/24/2014 Office visit Shade Scott MD 04/27/2014 Office visit Shade Scott MD 03/30/2014 Office visit Shade Scott MD 02/26/2014 Office visit Jared Skinner APR N 11/25/2013 Office visit Cathi Sparrow PHD INTERNSHIP 06/30/2013 Office visit Cathi Sparrow PHD INTERNSHIP 06/24/2013 Office visit Cathi Sparrow PHD INTERNSHIP 06/03/2012 Office visit Kostas Araya MD 03/18/2012 Office visit Kostas Araya MD 11/23/2009 Office visit Jaron Suárez MD 04/19/2009 Laboratory Rafa Vides MD
--- OUTSIDE RECORDS SUMMARY | 2019-07-19 22:50 | XMS REPORT ---
Author Author Kendra Sparrow Organization [facility] Address [address] [place], [place] [address] Care Team Providers Care Departmental Shipping Clerk Name Role Phone Cathi Sparrow PCP [...] 20 mg Oral Capsule 03/18/2012 one ev davidosn other day fiber laxative 03/18/2012 one every [...] NAMED [facility]#[id number] Reviewe d 06/30/2013 12:00 AM CYTOPATH C/V [...] Chay cy Group Number Start Date BCBS [facility] [id number] Mo 2011 [employer] [id number] Sunday, 2012 History of Encounters Visit Date Visit Type Provider 06/03/2015 Office visit Cathi Sparrow FEATHER MAKER 11/17/2014 Procedures Shade Scott MD 10/02/2014 Office visit Shade Scott MD 09/03/2014 Office visit Cathi Sparrow FEATHER MAKER 07/29/2014 Office visit Shade Scott MD 06/25/2014 Hospital Shade Scott MD 06/24/2014 Office visit Shade Scott MD 04/27/2014 Office visit Shade Scott MD 03/30/2014 Office visit Shade Scott MD 02/26/2014 Office visit Jared Skinner APR N 11/25/2013 Office visit Cathi Sparrow FEATHER MAKER 06/30/2013 Office visit Cathi Sparrow FEATHER MAKER 06/24/2013 Office visit Cathi Sparrow FEATHER MAKER 06/03/2012 Office visit Kostas Araya MD 03/18/2012 Office visit Kostas Araya MD 11/23/2009 Office visit Jaron Suárez MD 04/19/2009 Laboratory Rafa Vides MD
--- OUTSIDE RECORDS SUMMARY | 2019-07-19 22:50 | XMS REPORT ---
Author Author Kendra Sparrow [facility] Address [address] [place], [place] [address] Care Team Providers Care Wreath Machine Operator Name Role Phone Cathi Sparrow PCP Unavailable Allergies and Adverse Reactions Name Reaction Notes NO KNOWN DRUG ALLERGIES Plan of Treatment Planned Activity Comments Planned Date Planned Time Plan/Goal MAMMOGRAM BOTH BREASTS 06/09/2015 12:00 AM TTE W/DOPPLER COMPLETE 06/11/2015 12:00 AM Medications Active Name Start Date [...] Rocephin 1 gram [facility]#[id number] Reviewe d 06/30/2013 12:00 AM CYTOPATH C/V [...] nodules b 2015 7:09AM Routine gynecological examination b 2015 2:03PM Screening breast examination b 2015 2:03PM Chronic bronchitis, unspecified chronic bronchitis type b 2015 2:03PM Enlarged heart Feb 2015 8:17AM Pulmonary arterial hypertension b 2015 8:17AM Payers Insurance Name Company Name Plan Name Plan Number Policy Number Chay cy Group Number [id number] Mo 2011 [employer] [id number] Sunday, 2012 History of Encounters Visit Date Visit Type Provider 06/08/2015 Office visit 06/08/2015 Office visit Cathi Sparrow OPERATIONS MANAGER/COORDINATOR 06/03/2015 Office visit Cathi Sparrow OPERATIONS MANAGER/COORDINATOR 11/17/2014 Procedures Shade Scott MD 10/02/2014 Office visit Shade Scott MD 09/03/2014 Office visit Cathi Sparrow OPERATIONS MANAGER/COORDINATOR 07/29/2014 Office visit Shade Scott MD 06/25/2014 Hospital Shade Scott MD 06/24/2014 Office visit Shade Scott MD 04/27/2014 Office visit Shade Scott MD 03/30/2014 Office visit Shade Scott MD 02/26/2014 Office visit Jared Skinner APR N 11/25/2013 Office visit Cathi Sparrow OPERATIONS MANAGER/COORDINATOR 06/30/2013 Office visit Cathi Sparrow OPERATIONS MANAGER/COORDINATOR 06/24/2013 Office visit Cathi Sparrow OPERATIONS MANAGER/COORDINATOR 06/03/2012 Office visit Kostas Araya MD 03/18/2012 Office visit Kostas Araya MD 11/23/2009 Office visit Jaron Suárez MD 04/19/2009 Laboratory Rafa Vides MD
--- OUTSIDE RECORDS SUMMARY | 2019-07-19 22:50 | XMS REPORT ---
Author Author Kendra Ramirez Organization [facility] Address [address] [place], [place] [address] Care Team Providers Care Exhibitor Sales Name Role Phone Karlene Ramirez PCP Unavailable [...] Reviewed 06/03/2012 12:00 AM Rocephin 1 gram [facility]#[id number] Reviewe d 06/30/2013 12:00 AM CYTOPATH C/V [...] Number Start Date BCBS [facility] [place] [id number] Mo , 2011 [employer] [id number] Sunday, 2012 History of Encounters Visit Date Visit Type Provider 06/24/[address] Karlene cruz MD 06/08/2015 Office visit 06/08/2015 Office visit Cathi Sparrow INTAKE MANAGER 06/03/2015 Office visit Cathi Sparrow INTAKE MANAGER 11/17/2014 Procedures Shade Scott MD 10/02/2014 Office visit Shade Scott MD 09/03/2014 Office visit Cathi Sparrow INTAKE MANAGER 07/29/2014 Office visit Shade Scott MD 06/25/2014 Hospital Shade Scott MD 06/24/2014 Office visit Shade Scott MD 04/27/2014 Office visit Shade Scott MD 03/30/2014 Office visit Shade Scott MD 02/26/2014 Office visit Jared Skinner APR N 11/25/2013 Office visit Cathi Sparrow INTAKE MANAGER 06/30/2013 Office visit Cathi Sparrow INTAKE MANAGER 06/24/2013 Office visit Cathi Sparrow INTAKE MANAGER 06/03/2012 Office visit Kostas Araya MD 03/18/2012 Office visit Kostas Araya MD 11/23/2009 Office visit Jaron Suárez MD 04/19/2009 Laboratory Rafa Vides MD
--- OUTSIDE RECORDS SUMMARY | 2019-07-19 22:50 | XMS REPORT ---
Author Author Kendra Araya Organization [facility] Address [address] [place], [place] [address] Care Team Providers Care Care Transition Mgr Name Role Phone Kostas Araya PCP Unavailable [...] oral route once daily in the evening Bactrim DS oral tablet 800-160 mg 09/03/2014 09/10/2014 take 1 tablet by oral route 2 times a day for 7 days Viibryd oral tablet 40 mg 09/03/2014 take 1 tablet (40 mg) by oral route once daily with food Discontinued Name Start Date Discontinued Date SIG [...] HC BMI BSA BMI Percentile O2 Sat(%) 09/03/2014 11:11:00 AM 140 mmHg 78 mmHg [...] 2014 11:14AM Fatigue Sep 03 2014 11:14AM Payers Insurance Name Company Name Plan Name Plan Number Policy Number Chay cy Group Number Start Date Bcbs [facility] [place] [id number] Mo nd, 2011 United [employer] [id number] Sunday, 2012 History of Encounters Visit Date Visit Type Provider 09/03/2014 Office visit Cathi Sparrow GAS PUMP ATTENDANT 07/29/2014 Office visit Shade Scott MD 06/25/2014 Hospital Shade Scott MD 06/24/2014 Office visit Shade Scott MD 04/27/2014 Office visit Shade Scott MD 03/30/2014 Office visit Shade Scott MD 02/26/2014 Office visit Jared Skinner APR N 11/25/2013 Office visit Cathi Sparrow GAS PUMP ATTENDANT 06/30/2013 Office visit Cathi Sparrow GAS PUMP ATTENDANT 06/24/2013 Office visit Cathi Sparrow GAS PUMP ATTENDANT 06/03/2012 Office visit Kostas Araya MD 03/18/2012 Office visit Kostas Araya MD 11/23/2009 Office visit Jaron Suárez MD 04/19/2009 Laboratory Rafa Vides MD
--- OUTSIDE RECORDS SUMMARY | 2019-07-19 22:51 | XMS REPORT ---
Author Author Kendra Sparrow [facility] Address [address] [place], [place] [address] Care Team Providers Care Front Load Trash Truck Driver Name Role Phone Cathi Sparrow PCP Unavailable [...] DAILY IN THE MORNING WITH A MEAL Crestor 10 mg oral tablet 12/14/2016 03/14/2017 [...] and evening amlodipine 5 mg oral tablet 02/21/2017 take 1 tablet (5 mg) by oral route once daily irbesartan-hydrochlorothiazide 150-12.5 mg oral tablet 7 take 1 tablet by oral route once daily Name Start [...] 2 times per day for 7 days Discontinued Name Start [...] Reviewed 06/03/2012 12:00 AM Rocephin 1 gram [facility]#[id number] Reviewe d 06/30/2013 12:00 AM CYTOPATH C/V [...] 464.0 pg/mLTSH 1.630 uIU/mLGLYCOHEMOGLOBIN A1C 6.10 % 06/09/2015 8:10 AM GLUCOSE 143.0 mg/dLSODIUM 14 [...] 2016 9:56AM Chronic obstructive pulmonary disease, unspecified 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 Karlene cruz MD 06/08/2015 Office visit 06/08/2015 Office visit Cathi Sparrow UNIT ASSISTANT 06/03/2015 Office visit Cathi Sparrow UNIT ASSISTANT 11/17/2014 Procedures Shade Scott MD 10/02/2014 Office visit Shade Scott MD 09/03/2014 Office visit Cathi Sparrow UNIT ASSISTANT 07/29/2014 Office visit Shade Scott MD 06/25/2014 Hospital Shade Scott MD 06/24/2014 Office visit Shade Scott MD 04/27/2014 Office visit Shade Scott MD 03/30/2014 Office visit Shade Scott MD 02/26/2014 Office visit Jared Skinner APR N 11/25/2013 Office visit Cathi Sparrow UNIT ASSISTANT 06/30/2013 Office visit Cathi Sparrow UNIT ASSISTANT 06/24/2013 Office visit Cathi Sparrow APRN 06/03/2012 Office visit Kostas Araya MD 03/18/2012 Office visit Kostas Araya MD 11/23/2009 Office visit Jaron Suárez MD 04/19/2009 Laboratory Rafa Vides MD
--- OUTSIDE RECORDS SUMMARY | 2019-07-19 22:51 | XMS REPORT ---
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 Karlene cruz MD 06/08/2015 Office visit 06/08/2015 Office visit Cathi Sparrow LOCK AND DAM EQUIPMENT REPAIRER 06/03/2015 Office visit Cathi Sparrow LOCK AND DAM EQUIPMENT REPAIRER 11/17/2014 Procedures Shade Scott MD 10/02/2014 Office visit Shade Scott MD 09/03/2014 Office visit Cathi Sparrow LOCK AND DAM EQUIPMENT REPAIRER 07/29/2014 Office visit Shade Scott MD 06/25/2014 Hospital Shade Scott MD 06/24/2014 Office visit Shade Scott MD 04/27/2014 Office visit Shade Scott MD 03/30/2014 Office visit Shade Scott MD 02/26/2014 Office visit Jared Skinner APR N 11/25/2013 Office visit Cathi Sparrow LOCK AND DAM EQUIPMENT REPAIRER 06/30/2013 Office visit Cathi Sparrow LOCK AND DAM EQUIPMENT REPAIRER 06/24/2013 Office visit Cathi Sparrow LOCK AND DAM EQUIPMENT REPAIRER 06/03/2012 Office visit Kostas Araya MD 03/18/2012 Office visit Kostas Araya MD 11/23/2009 Office visit Jaron Suárez MD 04/19/2009 Laboratory Rafa Vides MD
--- OUTSIDE RECORDS SUMMARY | 2019-07-19 22:51 | XMS REPORT ---
Author Author Kendra Sparrow Organization [facility] Address [address] [place], [place] [address] Care Team Providers Care Adjunct Art History Instructor Name Role Phone Cathi Sparrow PCP Cathi [...] by oral route once daily with food doxycycline monohydrate 100 mg oral tablet 06/04/2017 [...] inhalation route every 6 hours as needed amlodipine 5 mg oral tablet 07/10/2017 take [...] THIGH OR UPPER ARM, ROTATING INJECTION SITES Name Start Date Expiration Date SIG Comments [...] once daily at bedtime for 30 days Discontinued Name Start Date [...] HC BMI BSA BMI Percentile O2 Sat(%) 06/04/2017 10:27:00 AM 128 mmHg 72 mmHg [...] 06/03/2012 12:00 AM Rocephin 1 gram [facility]#[id number] Reviewe d 06/30/2013 12:00 AM CYTOPATH C/V [...] Hypercholesterolemia Depression and anxiety Anemia Hypertension Diverticulosis of colon tubulovillous adenoma sigmoid colon [...] stone Apr 27 2014 1:17PM Lumbar spondylosis Fe2014 8:41AM Lumbar degenerative disc disease Jun 24 [...] bronchitis type b 2015 2:03PM Enlarged heart Jun 11 2015 [...] 2016 9:56AM Chronic obstructive pulmonary disease, unspecified 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 Aug 03 2016 9:56AM [...] 2017 10:28AM Diarrhea Jul 18 2017 5:51PM Payers Insurance Name Company Name Plan Name Plan Number Policy Number Chay Group Number Start Date BCBS [facility] [place] [id number] N/ A United [employer]i [employer] Company [employer] [id number] Sunday, 2012 BCBS [facility] [place] [id number] Mo 2011 BCBS [facility] [place] [id number] N/ A History of Encounters Visit Date Visit Type Provider 06/04/2017 Office visit Cathi Sparrow APRN 12/14/2016 Office visit Cathi Sparrow APRN 08/17/2016 Office visit Cathi Sparrow APRN 08/03/2016 Office visit Cathi Sparrow APRN 01/24/2016 [facility] Austyn Day DO 01/07/2016 Office visit Austyn Day DO 06/24/[address] Karlene cruz MD 06/08/2015 Office visit 06/08/2015 Office visit Cathi Sparrow APRN 06/03/2015 Office visit Cathi Sparrow 911 EMERGENCY DISPATCHER 11/17/2014 Procedures Shade P. Scott MD 10/02/2014 Office visit Shade Scott MD 09/03/2014 Office visit Cathi Sparrow 911 EMERGENCY DISPATCHER 07/29/2014 Office visit Shade Scott MD 06/25/2014 Hospital Shade Scott MD 06/24/2014 Office visit Shade Scott MD 04/27/2014 Office visit Shade Scott MD 03/30/2014 Office visit Shade Scott MD 02/26/2014 Office visit Jared Skinner APR N 11/25/2013 Office visit Cathi Sparrow 911 EMERGENCY DISPATCHER 06/30/2013 Office visit Cathi Sparrow 911 EMERGENCY DISPATCHER 06/24/2013 Office visit Cathi Sparrow 911 EMERGENCY DISPATCHER 06/03/2012 Office visit Kostas Araya MD 03/18/2012 Office visit Kostas Araya MD 11/23/2009 Office visit Jaron Suárez MD 04/19/2009 Laboratory Rafa Vides MD
--- OUTSIDE RECORDS SUMMARY | 2019-07-19 22:52 | XMS REPORT ---
Author Author Kendra Sparrow [facility] Address [address] [place], [place] [address] Care Team Providers Care Demand Manager Name Role Phone Cathi Sparrow PCP Cathi Sparrow PreferredProvider Allergies and Adverse Reactions Name Reaction Notes NO KNOWN DRUG ALLERGIES Plan of Treatment Planned Activity Comments Planned Date Planned Time Plan/Goal Polysomnography 08/24/2015 12:00 AM Stool culture 06/04/2017 12:00 AM WBC STOOL 06/04/2017 12:00 AM Medications Active Name Start Date [...] by oral route once daily with food amlodipine 5 mg oral tablet 02/21/2017 take 1 tablet (5 mg) by oral route once daily irbesartan-hydrochlorothiazide 150-12.5 mg oral tablet 7 take 1 tablet by oral route once daily doxycycline monohydrate 100 mg oral tablet 06/04/2017 [...] inhalation route every 6 hours as needed Name Start Date Expiration Date SIG Comments [...] once daily at bedtime for 30 days Invokamet XR 150-1,000 mg oral tablet, IR - ER, biphasic 24h r 03/26/2017 03/26/2017 TAKE TWO TABLETS BY MOUTH ONCE DAILY IN THE MORNING WI TH A MEAL Trulicity 0.75 mg/0.5 mL subcutaneous pen injector 05/21/2017 05/21/2017 INJECT 0.5 ML (0.75MG) SUBCUTANEOUSLY EVERY 7 DAYS IN THE ABDOMEN, THIGH OR UPPER ARM, ROTATING INJECTION SITES Discontinued Name Start Date Discontinued Date SIG [...] Reviewed 06/03/2012 12:00 AM Rocephin 1 gram [facility]#[id number] Reviewe d 06/30/2013 12:00 AM CYTOPATH C/V [...] spondylosis Fe2014 8:41AM Lumbar degenerative disc disease Fe2014 8:41AM Myofascial pain Jun 24 2014 8:41AM [...] 2016 9:56AM Chronic obstructive pulmonary disease, unspecified SAP DEVELOPER D type Aug 03 2016 9:56AM STEPHANIE [...] acute exace rbation Jun 04 2017 10:28AM Payers Insurance Name Company Name Plan Name Plan Number Policy Number Chay cy Group Number Start Date BCBS [facility] [place] [id number] N/ A [employer] [id number] Sunday, 2012 BCBS [facility] [place] [id number] Mo 2011 BCBS [facility] [place] [id number] N/ A History of Encounters Visit Date Visit Type Provider 06/04/2017 Office visit Cathi Sparrow UNDERLAY STITCHER 12/14/2016 Office visit Cathi Sparrow UNDERLAY STITCHER 08/17/2016 Office visit Cathi Sparrow UNDERLAY STITCHER 08/03/2016 Office visit Cathi Sparrow UNDERLAY STITCHER 01/24/2016 Hospital Austyn Day DO 01/07/2016 Office visit Austyn Day DO 06/24/[address] Karlene cruz MD 06/08/2015 Office visit 06/08/2015 Office visit Cathi Sparrow UNDERLAY STITCHER 06/03/2015 Office visit Cathi Sparrow UNDERLAY STITCHER 11/17/2014 Procedures Shade Scott MD 10/02/2014 Office visit Shade Scott MD 09/03/2014 Office visit Cathi Sparrow UNDERLAY STITCHER 07/29/2014 Office visit Shade Scott MD 06/25/2014 Hospital Shade Scott MD 06/24/2014 Office visit Shade Scott MD 04/27/2014 Office visit Shade Scott MD 03/30/2014 Office visit Shade Scott MD 02/26/2014 Office visit Jared Skinner APR N 11/25/2013 Office visit Cathi Sparrow UNDERLAY STITCHER 06/30/2013 Office visit Cathi Sparrow UNDERLAY STITCHER 06/24/2013 Office visit Cathi Sparrow UNDERLAY STITCHER 06/03/2012 Office visit Kostas Araya MD 03/18/2012 Office visit Kostas Araya MD 11/23/2009 Office visit Jaron Suárez MD 04/19/2009 Laboratory Rafa Vides MD
--- OUTSIDE RECORDS SUMMARY | 2019-07-19 22:52 | XMS REPORT ---
Author Author Kendra Sparrow [facility] Address [address] [place], [place] [address] Care Team Providers Care Housing Court Judge Name Role Phone Cathi Sparrow PCP Unavailable [...] Reviewed 06/03/2012 12:00 AM Rocephin 1 gram [facility]#[id number] Reviewe d 06/30/2013 12:00 AM CYTOPATH C/V [...] Chay cy Group Number [facility] Date [facility] [id number] Mo 2011 [employer] Company [employer] [id number] Sunday, 2012 History of Encounters Visit Date Visit Type Provider 06/08/2015 Office visit 06/08/2015 Office visit Cathi Sparrow FLYER MAKER 06/03/2015 Office visit Cathi Sparrow FLYER MAKER 11/17/2014 Procedures Shade Scott MD 10/02/2014 Office visit Shade Scott MD 09/03/2014 Office visit Cathi Sparrow FLYER MAKER 07/29/2014 Office visit Shade Scott MD 06/25/2014 Hospital Shade Scott MD 06/24/2014 Office visit Shade Scott MD 04/27/2014 Office visit Shade Scott MD 03/30/2014 Office visit Shade Scott MD 02/26/2014 Office visit Jared Skinner APR N 11/25/2013 Office visit Cathi Sparrow FLYER MAKER 06/30/2013 Office visit Cathi Sparrow FLYER MAKER 06/24/2013 Office visit Cathi Sparrow FLYER MAKER 06/03/2012 Office visit Kostas Araya MD 03/18/2012 Office visit Kostas Araya MD 11/23/2009 Office visit Jaron Suárez MD 04/19/2009 Laboratory Rafa Vides MD
--- OUTSIDE RECORDS SUMMARY | 2019-07-19 22:52 | XMS REPORT ---
Author Author Kendra Day [facility] Address [address] [place], [place] [address] Care Team Providers Care Communication Arts Lecturer Name Role Phone Austyn Day PCP Unavailable Cathi Sparrow PreferredProvider Unavailable Allergies [...] Reviewed 06/03/2012 12:00 AM Rocephin 1 gram [facility]#[id number] Reviewe d 06/30/2013 12:00 AM CYTOPATH C/V [...] Group Number Start Date BCBS Bcbs [facility] [place] [id number] Mo 2011 [id number] [id number] Sunday, 2012 History of Encounters Visit Date Visit Type Provider 01/24/2016 [facility] Austyn Day DO 01/07/2016 Office visit Austyn Day DO 06/24/[address] Karlene cruz MD 06/08/2015 Office visit 06/08/2015 Office visit Cathi Sparrow RESTAURANT COOK 06/03/2015 Office visit Cathi Sparrow RESTAURANT COOK 11/17/2014 Procedures Shade Scott MD 10/02/2014 Office visit Shade Scott MD 09/03/2014 Office visit Cathi Sparrow RESTAURANT COOK 07/29/2014 Office visit Shade Scott MD 06/25/2014 Hospital Shade Scott MD 06/24/2014 Office visit Shade Scott MD 04/27/2014 Office visit Shade Scott MD 03/30/2014 Office visit Shade Scott MD 02/26/2014 Office visit Jared Skinner APR N 11/25/2013 Office visit Cathi Sparrow RESTAURANT COOK 06/30/2013 Office visit Cathi Sparrow RESTAURANT COOK 06/24/2013 Office visit Cathi Sparrow RESTAURANT COOK 06/03/2012 Office visit Kostas Araya MD 03/18/2012 Office visit Kostas Araya MD 11/23/2009 Office visit Jaron Suárez MD 04/19/2009 Laboratory Rafa Vides MD
--- OUTSIDE RECORDS SUMMARY | 2019-07-19 22:53 | XMS REPORT ---
Author Author Kendra Sparrow [facility] Address [address] [place], [place] [address] Care Team Providers Care Trade Facilitator Name Role Phone Cathi Sparrow PCP Unavailable [...] Reviewed 06/03/2012 12:00 AM Rocephin 1 gram [facility]#[id number] Reviewe d 06/30/2013 12:00 AM CYTOPATH C/V [...] Group Number Start Date BCBS Bcbs Of [place] [id number] Mo 2011 [employer] [id number] Sunday, 2012 History of Encounters Visit Date Visit Type Provider 06/08/2015 Office visit 06/08/2015 Office visit Cathi Sparrow PATHOLOGY SECRETARY 06/03/2015 Office visit Cathi Sparrow PATHOLOGY SECRETARY 11/17/2014 Procedures Shade Scott MD 10/02/2014 Office visit Shade Scott MD 09/03/2014 Office visit Cathi Sparrow PATHOLOGY SECRETARY 07/29/2014 Office visit Shade Scott MD 06/25/2014 Hospital Shade Scott MD 06/24/2014 Office visit Shade Scott MD 04/27/2014 Office visit Shade Scott MD 03/30/2014 Office visit Shade Scott MD 02/26/2014 Office visit Jared Skinner APR N 11/25/2013 Office visit Cathi Sparrow PATHOLOGY SECRETARY 06/30/2013 Office visit Cathi Sparrow PATHOLOGY SECRETARY 06/24/2013 Office visit Cathi Sparrow PATHOLOGY SECRETARY 06/03/2012 Office visit Kostas Araya MD 03/18/2012 Office visit Kostas Araya MD 11/23/2009 Office visit Jaron Suárez MD 04/19/2009 Laboratory Rafa Vides MD
--- OUTSIDE RECORDS SUMMARY | 2019-07-19 22:53 | XMS REPORT ---
Author Author Kendra Araya Organization [facility] Address [address] [place], [place] [address] Care Team Providers Care Plastics Heat Welder Name Role Phone Kostas Araya PCP Unavailable [...] Group Number Start Date Bcbs Bcbs Of [place] [id number] Mo 2011 [employer] Insurance Company [employer] [id number] Sunday, 2012 History of Encounters Visit Date Visit Type Provider 10/02/2014 Office visit Shade Scott MD 09/03/2014 Office visit Cathi Sparrow DENTAL LABORATORY MANAGER 07/29/2014 Office visit Shade Scott MD 06/25/2014 Hospital Shade Scott MD 06/24/2014 Office visit Shade Scott MD 04/27/2014 Office visit Shade Scott MD 03/30/2014 Office visit Shade Scott MD 02/26/2014 Office visit Jared Skinner APR N 11/25/2013 Office visit Cathi Sparrow DENTAL LABORATORY MANAGER 06/30/2013 Office visit Cathi Sparrow DENTAL LABORATORY MANAGER 06/24/2013 Office visit Cathi Sparrow DENTAL LABORATORY MANAGER 06/03/2012 Office visit Kostas Araya MD 03/18/2012 Office visit Kostas Araya MD 11/23/2009 Office visit Jaron Suárez MD 04/19/2009 Laboratory Rafa Vides MD
--- OUTSIDE RECORDS SUMMARY | 2019-07-19 22:53 | XMS REPORT ---
Author Author Kendra Sparrow Organization [facility] Address [address] [place], [place] [address] Care Team Providers Care Astrobiologist Name Role Phone Cathi Sparrow PCP Unavailable [...] 06/03/2012 12:00 AM Rocephin 1 gram [facility]#[id number] Reviewe d 06/30/2013 12:00 AM CYTOPATH C/V [...] 8:47AM Post-nasal discharge Jun 03 2015 8:47AM Payers Insurance Name Company Name Plan Name Plan Number Policy Number Chay cy Group Number Start Date BCBS [facility] [id number] [place] 2011 United [place] Insurance Company [employer] [place] [id number] Sunday, 2012 History of Encounters Visit Date Visit Type Provider 06/03/2015 Office visit Cathi Sparrow BEET TOPPER 11/17/2014 Procedures Shade Scott MD 10/02/2014 Office visit Shade Scott MD 09/03/2014 Office visit Cathi Sparrow BEET TOPPER 07/29/2014 Office visit Shade Scott MD 06/25/2014 Hospital Shade Scott MD 06/24/2014 Office visit Shade Scott MD 04/27/2014 Office visit Shade Scott MD 03/30/2014 Office visit Shade Scott MD 02/26/2014 Office visit Jared Skinner APR N 11/25/2013 Office visit Cathi Sparrow BEET TOPPER 06/30/2013 Office visit Cathi Sparrow BEET TOPPER 06/24/2013 Office visit Cathi Sparrow BEET TOPPER 06/03/2012 Office visit Kostas Araya MD 03/18/2012 Office visit Kostas Araya MD 11/23/2009 Office visit Jaron Suárez MD 04/19/2009 Laboratory Rafa Vides MD
--- OUTSIDE RECORDS SUMMARY | 2019-07-19 22:53 | XMS REPORT ---
Author Author Kendra Sparrow Organization [facility] Address [address] [place], [place] [address] Care Team Providers Care Pig Machine Supervisor Name Role Phone Cathi Sparrow PCP Unavailable [...] 06/03/2012 12:00 AM Rocephin 1 gram [facility]#[id number] Reviewe d 06/30/2013 12:00 AM CYTOPATH C/V [...] Chay cy Group Number Start Date BCBS [facility] [id number] Ma 2011 [employer] [id number] Sunday, 2012 History of Encounters Visit Date Visit Type Provider 06/03/2015 Office visit Cathi Sparrow CHILD WELFARE DIRECTOR 11/17/2014 Procedures Shade Scott MD 10/02/2014 Office visit Shade Scott MD 09/03/2014 Office visit Cathi Sparrow CHILD WELFARE DIRECTOR 07/29/2014 Office visit Shade Scott MD 06/25/2014 Hospital Shade Scott MD 06/24/2014 Office visit Shade Scott MD 04/27/2014 Office visit Shade Scott MD 03/30/2014 Office visit Shade Scott MD 02/26/2014 Office visit Jared Skinner APR N 11/25/2013 Office visit Cathi Sparrow CHILD WELFARE DIRECTOR 06/30/2013 Office visit Cathi Sparrow CHILD WELFARE DIRECTOR 06/24/2013 Office visit Cathi Sparrow CHILD WELFARE DIRECTOR 06/03/2012 Office visit Kostas Araya MD 03/18/2012 Office visit Kostas Araya MD 11/23/2009 Office visit Jaron Suárez MD 04/19/2009 Laboratory Rafa Vides MD
--- OUTSIDE RECORDS SUMMARY | 2019-07-19 22:54 | XMS REPORT ---
Author Author Kendra Scott Organization [facility] Address [address] [place], [place] [phone] Care Team Providers Care Apartment Leasing Manager Name Role Phone Shade Scott PCP Allergies [...] ONE CAPSULE BY MOUTH THREE TIMES DAILY Name Start Date Expiration Date SIG [...] Reviewed 06/03/2012 12:00 AM Rocephin 1 gram [facility]#[id number] Reviewe d 06/30/2013 12:00 AM CYTOPATH C/V [...] Group Number Start Date Bcbs [facility] [place] [id number] In , 2011 [employer] [facility] [id number] Sunday, 2012 History of Encounters Visit Date Visit Type Provider 11/17/2014 Procedures Shade Scott MD 10/02/2014 Office visit Shade Scott MD 09/03/2014 Office visit Cathi Sparrow OPERATIONS OFFICER 07/29/2014 Office visit Shade Scott MD 06/25/2014 Hospital Shade Scott MD 06/24/2014 Office visit Shade Scott MD 04/27/2014 Office visit Shade Scott MD 03/30/2014 Office visit Shade Scott MD 02/26/2014 Office visit Jared Skinner APR N 11/25/2013 Office visit Cathi Sparrow OPERATIONS OFFICER 06/30/2013 Office visit Cathi Sparrow OPERATIONS OFFICER 06/24/2013 Office visit Cathi Sparrow OPERATIONS OFFICER 06/03/2012 Office visit Kostas Araya MD 03/18/2012 Office visit Kostas Araya MD 11/23/2009 Office visit Jaron Suárez MD 04/19/2009 Laboratory Rafa Vides MD
--- OUTSIDE RECORDS SUMMARY | 2019-07-19 22:54 | XMS REPORT ---
Author Author Kendra Ramirez Organization [facility] Address [address] [place], [place] [phone] Care Team Providers Care Antique Dealer Name Role Phone Karlene Ramirez PCP Unavailable [...] 06/03/2012 12:00 AM Rocephin 1 gram [facility]#[id number] Reviewe d 06/30/2013 12:00 AM CYTOPATH C/V [...] Group Number Start Date BCBS [employer] [place] [id number] Mo 2011 [place] [id number] Sunday, 2012 History of Encounters Visit Date Visit Type Provider 06/24/[address] Karlene cruz MD 06/08/2015 Office visit 06/08/2015 Office visit Cathi Sparrow CUT OFF SAW SET UP OPERATOR 06/03/2015 Office visit Cathi Sparrow CUT OFF SAW SET UP OPERATOR 11/17/2014 Procedures Shade Scott MD 10/02/2014 Office visit Shade Scott MD 09/03/2014 Office visit Cathi Sparrow CUT OFF SAW SET UP OPERATOR 07/29/2014 Office visit Shade Scott MD 06/25/2014 Hospital Shade Scott MD 06/24/2014 Office visit Shade Scott MD 04/27/2014 Office visit Shade Scott MD 03/30/2014 Office visit Shade Scott MD 02/26/2014 Office visit Jared Skinner APR N 11/25/2013 Office visit Cathi Sparrow CUT OFF SAW SET UP OPERATOR 06/30/2013 Office visit Cathi Sparrow CUT OFF SAW SET UP OPERATOR 06/24/2013 Office visit Cathi Sparrow CUT OFF SAW SET UP OPERATOR 06/03/2012 Office visit Kostas Araya MD 03/18/2012 Office visit Kostas Araya MD 11/23/2009 Office visit Jaron Suárez MD 04/19/2009 Laboratory Rafa Vides MD
--- OUTSIDE RECORDS SUMMARY | 2019-07-19 22:54 | XMS REPORT ---
Author Author Kendra Sparrow [facility] Address [address] [place], [place] [address] Care Team Providers Care Costume Specialist Name Role Phone Cathi Sparrow PCP Unavailable Allergies and Adverse Reactions Name Reaction Notes NO KNOWN DRUG ALLERGIES Plan of Treatment Planned Activity Comments Planned Date Planned Time Plan/Goal MAMMOGRAM BOTH BREASTS 06/09/2015 12:00 AM Medications [...] per day in the morning and evening Diflucan 150 mg oral tablet 06/17/2015 take 1 tablet (150 mg) by oral [...] 12:00 AM CYTOPATH C/V THIN LAYER Reviewed 06/11/2015 12:00 AM TTE W/DOPPLER COMPLETE Returned [...] AM Rocephin 1 gram [facility]#[id number] Reviewe d 06/30/2013 12:00 AM CYTOPATH C/V [...] heart Feb 2015 8:17AM Pulmonary arterial hypertension Feb 2015 8:17AM Payers Insurance Name Company Name Plan Name Plan Number Policy Number Chay cy Group Number [facility] Date [facility] [id number] Mo 2011 [employer] [id number] Sunday, 2012 History of Encounters Visit Date Visit Type Provider 06/08/2015 Office visit 06/08/2015 Office visit Cathi Sparrow BRAIN WAVE TECHNICIAN 06/03/2015 Office visit Cathi Sparrow BRAIN WAVE TECHNICIAN 11/17/2014 Procedures Shade Scott MD 10/02/2014 Office visit Shade Scott MD 09/03/2014 Office visit Cathi Sparrow BRAIN WAVE TECHNICIAN 07/29/2014 Office visit Shade Scott MD 06/25/2014 Hospital Shade Scott MD 06/24/2014 Office visit Shade Scott MD 04/27/2014 Office visit Shade Scott MD 03/30/2014 Office visit Shade Scott MD 02/26/2014 Office visit Jared Skinner APR N 11/25/2013 Office visit Cathi Sparrow BRAIN WAVE TECHNICIAN 06/30/2013 Office visit Cathi Sparrow BRAIN WAVE TECHNICIAN 06/24/2013 Office visit Cathi Sparrow BRAIN WAVE TECHNICIAN 06/03/2012 Office visit Kostas Araya MD 03/18/2012 Office visit Kostas Araya MD 11/23/2009 Office visit Jaron Suárez MD 04/19/2009 Laboratory Rafa Vides MD
--- OUTSIDE RECORDS SUMMARY | 2019-07-19 22:54 | XMS REPORT ---
Author Author Kendra Ramirez Organization [facility] Address [address] [place], [place] [phone] Care Team Providers Care Blanket Winder Helper Name Role Phone Karlene Ramirez PCP Unavailable [...] 06/03/2012 12:00 AM Rocephin 1 gram [facility]#[id number] Reviewe d 06/30/2013 12:00 AM CYTOPATH C/V [...] Group Number Start Date BCBS [facility] [facility] [place] [id number] 2011 [employer] [place] [employer] [place] [employer] [id number] Sunday, 2012 History of Encounters Visit Date Visit Type Provider 06/24/[address] Karlene cruz MD 06/08/2015 Office visit 06/08/2015 Office visit Cathi Sparrow GARAGE MECHANIC 06/03/2015 Office visit Cathi Sparrow GARAGE MECHANIC 11/17/2014 Procedures Shade Scott MD 10/02/2014 Office visit Shade Scott MD 09/03/2014 Office visit Cathi Sparrow GARAGE MECHANIC 07/29/2014 Office visit Shade Scott MD 06/25/2014 Hospital Shade Scott MD 06/24/2014 Office visit Shade Scott MD 04/27/2014 Office visit Shade Scott MD 03/30/2014 Office visit Shade Scott MD 02/26/2014 Office visit Jared Skinner APR N 11/25/2013 Office visit Cathi Sparrow GARAGE MECHANIC 06/30/2013 Office visit Cathi Sparrow GARAGE MECHANIC 06/24/2013 Office visit Cathi Sparrow GARAGE MECHANIC 06/03/2012 Office visit Kostas Araya MD 03/18/2012 Office visit Kostas Araya MD 11/23/2009 Office visit Jaron Suárez MD 04/19/2009 Laboratory Rafa Vides MD
--- OUTSIDE RECORDS SUMMARY | 2019-07-19 22:55 | XMS REPORT ---
Author Author Kendra Day [facility] Address [address] [place], [place] [address] Care Team Providers Care Program Director Air Talent Name Role Phone Austyn Day PCP Unavailable [...] Reviewed 06/03/2012 12:00 AM Rocephin 1 gram [facility]#[id number] Reviewe d 06/30/2013 12:00 AM CYTOPATH C/V [...] Number Start Date BCBS [employer] [facility] [place] [id number] Mo 2011 [employer] [id number] Sunday, 2012 History of Encounters Visit Date Visit Type Provider 01/24/2016 [facility] Austyn Day DO 01/07/2016 Office visit Austyn Day DO 06/24/[address] Karlene cruz MD 06/08/2015 Office visit 06/08/2015 Office visit Cathi Sparrow MATHEMATICS TECHNICIAN 06/03/2015 Office visit Cathi Sparrow MATHEMATICS TECHNICIAN 11/17/2014 Procedures Shade Scott MD 10/02/2014 Office visit Shade Scott MD 09/03/2014 Office visit Cathi Sparrow MATHEMATICS TECHNICIAN 07/29/2014 Office visit Shade Scott MD 06/25/2014 Hospital Shade Scott MD 06/24/2014 Office visit Shade Scott MD 04/27/2014 Office visit Shade Scott MD 03/30/2014 Office visit Shade Scott MD 02/26/2014 Office visit Jared Skinner APR N 11/25/2013 Office visit Cathi Sparrow MATHEMATICS TECHNICIAN 06/30/2013 Office visit Cathi Sparrow MATHEMATICS TECHNICIAN 06/24/2013 Office visit Cathi Sparrow MATHEMATICS TECHNICIAN 06/03/2012 Office visit Kostas Araya MD 03/18/2012 Office visit Kostas Araya MD 11/23/2009 Office visit Jaron Suárez MD 04/19/2009 Laboratory Rafa Vides MD
--- OUTSIDE RECORDS SUMMARY | 2019-07-19 22:55 | XMS REPORT ---
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 Aug 03 2016 9:56AM STEPHANIE [...] Group Number Start Date BCBS [employer] [facility] [place] [id number] N/ A [employer] [id number] Sunday, 2012 BCBS [employer] [place] [id number] Mo 2011 BCBS [employer] [place] [id number] N/ A History of Encounters Visit Date Visit Type Provider 06/04/2017 Office visit Cathi Sparrow APRN 12/14/2016 Office visit Cathi Sparrow APRN 08/17/2016 Office visit Cathi Sparrow APRN 08/03/2016 Office visit Cathi Sparrow APRN 01/24/2016 [facility] Austyn Day DO 01/07/2016 Office visit Austyn Day DO 06/24/[address] Karlene cruz MD 06/08/2015 Office visit 06/08/2015 Office visit Cathi Sparrow APRN 06/03/2015 Office visit Cathi Sparrow CERTIFIED PEDORTHOTIST 11/17/2014 Procedures Shade P. Scott MD 10/02/2014 Office visit Shade Scott MD 09/03/2014 Office visit Cathi Sparrow CERTIFIED PEDORTHOTIST 07/29/2014 Office visit Shade Scott MD 06/25/2014 Hospital Shade Scott MD 06/24/2014 Office visit Shade Scott MD 04/27/2014 Office visit Shade Scott MD 03/30/2014 Office visit Shade Scott MD 02/26/2014 Office visit Jared Skinner APR N 11/25/2013 Office visit Cathi Sparrow CERTIFIED PEDORTHOTIST 06/30/2013 Office visit Cathi Sparrow CERTIFIED PEDORTHOTIST 06/24/2013 Office visit Cathi Sparrow CERTIFIED PEDORTHOTIST 06/03/2012 Office visit Kostas Araya MD 03/18/2012 Office visit Kostas Araya MD 11/23/2009 Office visit Jaron Suárez MD 04/19/2009 Laboratory Rafa Vides MD
--- OUTSIDE RECORDS SUMMARY | 2019-07-19 22:55 | XMS REPORT | Clinical Summary ---
Author Author Admin, Kendra Flowers [employer] Address Unknown Phone Unavailable Allergies, Adverse Reactions, Alerts Allergy Name Reaction Description Start Date Severity Status Pr ovider No Known Allergies Bethanie Elder Conditions or Problems Problem Name Problem Code Onset Date Status Entry Date Provider Comment Standard Description Annotate HYPERTENSION 401.9 Active Vero Pool PA Uns pecified essential hypertension HYPERLIPIDEMIA 272.4 Active Vero Pool PA O ther and unspecified hyperlipidemia HYPERTENSION, BENIGN ESSENTIAL, UNCONTROLLED 401.1 Ac tive Vero Pool PA Benign essential hypertension HYPERLIPIDEMIA, MIXED 272.2 Active Vero Pool PA Mixed hyperlipidemia DEPRESSION, MILD, RECURRENT 296.31 Active Vero P ool PA Major depressive disorder, recurrent episode, mild degree FATIGUE, ACUTE 780.79 Active Vero Pool PA Other malaise and fatigue DIVERTICULOSIS OF COLON 562.10 Active Vero Pool PA Diverticulosis of colon (without mention of hemorrhage) RENAL CALCULUS, RIGHT 592.0 Active Vero Pool PA Calculus of kidney TUBULOVILLOUS ADENOMA, COLON, 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 Vero Pool PA Personal history of colonic polyps PULMONARY NODULE 518.89 Active Vero Pool PA Other diseases of lung, not elsewhere classified COUGH 786.2 Active Vero Pool PA Cough Flank pain, right 789.09 Active Thu Reese MD Abdominal pain, other specified site; multiple sites Renal calculus, right 592.0 Active Thu alvarez MD Calculus of kidney Hx of kidney stone V13.01 Active Thu quan MD Personal history of urinary calculi BMI 40-44.9 Active Thu Reese MD Body Mass Index 40.0- 44.9, adult Obesity Class III (BMI >=40) Active Thu Reese MD Morbid obesity Medication List Medication Instructions Start Date Stop Date Generic Name NDC Status Provider Patient Instruction DIALYVITE VITAMIN D3 MAX 31098 UNIT ORAL TABLET Take one by mouth d aily CHOLECALCIFEROL 34655742653 Active Thu Reese MD Activ e CYCLOBENZAPRINE HCL 10 MG ORAL TABLET by mouth twice a day CYCLOBENZAPRINE HCL 58970870548 Active Thu Reese MD A ctive TRESIBA 100 UNIT/ML SUBCUTANEOUS SOLUTION 16 units at night INSULIN DEGLUDEC 69304801270 Active Thu Reese MD Active TRULICITY 1.5 MG/0.5ML SUBCUTANEOUS SOLUTION PEN-INJECTOR 1 IM sintia DULAGLUTIDE 69674013775 Active Thu Reese MD Active INVOKAMET 150-1000 MG ORAL TABLET 1 tab by mouth daily CANAGLIFLOZIN- METFORMIN HCL 90023486255 Active Thu Reese MD Active ACID CONTROLLER 10 MG ORAL TABLET 2 tabs by mouth daily FAMOTIDINE 40732849350 No Longer Active Thu Reese MD Acti ve VIIBRYD 40 MG ORAL TABLET 1 tab by mouth daily VILAZODONE HCL 35450568148 No Longer Active Thu Reese MD Acti ve IRBESARTAN-HYDROCHLOROTHIAZIDE 150-12.5 MG ORAL TABLET 1 tab by mouth daily IRBESARTAN-HYDROCHLOROTHIAZIDE 43207711261 Active Thu Reese MD Active AMLODIPINE BESYLATE 5 MG ORAL TABLET 1 tablet by mouth daily AMLODIPINE BESYLATE 34742518600 Active Thu Reese MD A ctive ALEVE 220 MG ORAL TABLET NAPROXEN SODIU M 03717626499 No Longer Active Thu Reese MD Active SIMVASTATIN 40 MG ORAL TABLET 1 tab daily at bedtime 02/14 SIMVASTATIN 15094207771 No Longer Active Thu Reese MD Active PROZAC 40 MG ORAL CAPSULE take one cap po daily FLUOXETINE HCL 65000304322 No Longer Active Thu Reese MD Acti ve DICLOFENAC SODIUM 75 MG ORAL TABLET DELAYED RELEASE Take one by mouth daily DICLOFENAC SODIUM 94106245812 No Longer Active Thu Reese MD Active ULTRAM 50 MG ORAL TABLET 1 tab po tid prn pain TRAMADOL HCL 30144928478 No Longer Active Thu Reese MD Acti ve COZAAR 50 MG ORAL TABLET take one tab po daily LOSARTAN POTASSIUM 68410502699 No Longer Active Thu Reese MD Acti ve MEDROL 4 MG ORAL TABLET THERAPY PACK take as directed METHYLPREDNISOLONE 62980907731 No Longer Active Thu Reese MD Active ZITHROMAX Z-EUNICE 250 MG ORAL TABLET take as directed 19/02/11 AZITHROMYCIN 07017772944 No Longer Active hTu Reese MD Acti ve BYSTOLIC 5 MG ORAL TABLET take on tab po daily NEBIVOLOL HCL 26156742893 No Longer Active Vero GABRIEL Active LISINOPRIL 10 MG ORAL TABLET take one tab po daily 201 07/14/06 LISINOPRIL 53362401456 No Longer Active Vero GABRIEL Active LISINOPRIL 10 MG ORAL TABLET take one tab po daily 201 07/14/06 LISINOPRIL 10 MG ORAL TABLET 710969 LISINOPRIL Inactive BYSTOLIC 5 MG ORAL TABLET take on tab po daily BYSTOLIC 5 MG ORAL TABLET NEBIVOLOL HCL Inactive ZITHROMAX Z-EUNICE 250 MG ORAL TABLET take as directed 19/02/11 ZITHROMAX Z-EUNICE 250 MG ORAL TABLET 384088 AZITHROMYCIN Inact eriberto MEDROL 4 MG ORAL TABLET THERAPY PACK take as directed MEDROL 4 MG ORAL TABLET THERAPY PACK 548441 METHYLPREDNISOLONE [place] ctive COZAAR 50 MG ORAL TABLET take one tab po daily COZAAR 50 MG ORAL TABLET 414419 LOSARTAN POTASSIUM Inactive ULTRAM 50 MG ORAL TABLET 1 tab po tid prn pain ULTRAM 50 MG ORAL TABLET 577302 TRAMADOL HCL Inactive DICLOFENAC SODIUM 75 MG ORAL TABLET DELAYED RELEASE Take one by mouth daily DICLOFENAC SODIUM 75 MG ORAL TABLET HALIMA YED RELEASE 839249 DICLOFENAC SODIUM Inactive PROZAC 40 MG ORAL CAPSULE take one cap po daily PROZAC 40 MG ORAL CAPSULE 214011 FLUOXETINE HCL Inactive SIMVASTATIN 40 MG ORAL TABLET 1 tab daily at bedtime 2 SIMVASTATIN 40 MG ORAL TABLET 890751 SIMVASTATIN Inactive ALEVE 220 MG ORAL TABLET ALEVE 220 MG O RAL TABLET 23766718478 NAPROXEN SODIUM Inactive VIIBRYD 40 MG ORAL TABLET 1 tab by mouth daily VIIBRYD 40 MG ORAL TABLET VILAZODONE HCL Inactive ACID CONTROLLER 10 MG ORAL TABLET 2 tabs by mouth daily ACID CONTROLLER 10 MG ORAL TABLET 525356 FAMOTIDINE Inacti ve Advance Directives Directive Description Start Date PERMISSION TO SHARE Vital Signs Date Name Value Unit Range Description blood pressure, diastolic, repeated by physician 63 BP chaudhary blood pressure, diastolic 63 mm[Hg] BP chaudhary blood pressure, systolic, repeated by physician 128 BP sys blood pressure, systolic 128 mm[Hg] BP sys height E&M 68 [in_us] Bdy height pulse rate E&M 94 /min Heart rate temperature E&M 98.8 [degF] Body temp erature weight E&M 270 [lb_av] Weight Measure d blood pressure, diastolic 89 mm[Hg] BP chaudhary blood pressure, systolic 111 mm[Hg] BP sys height E&M 68 [in_us] Bdy height pulse rate E&M 94 /min Heart rate temperature E&M 97.2 [degF] Body temp erature weight E&M 284.31 [lb_av] Weight Measure d Diagnostic Results Date Name Value Unit Range Description Office Visit: CN-possible kidney stone - Chemistry RBC, urine, dipstick trace non hemoglyzed Office Visit: CN-possible kidney stone - PMH sexually transmitted disease no risk noted Office Visit: CN-possible kidney stone - Urinalysis appearance, urine clear urine color yellow specific gravity, urine 1.010 pH, urine, semiquantitative 5.0 protein, urine, semiquantitative (dipstick) negative glucose, urine, semiquantitative negative ketones, urine, by test strip negative bilirubin, urine negative nitrite, urine, semiquantitative negative urobilinogen, urine, semiquantitative (dipstick) 0.2 leukocyte esterase, urine, by dipstick negative Office Visit: Possible kidney stone - C hemistry RBC, urine, dipstick 2+ Office Visit: Possible kidney stone - U rinalysis nitrite, urine, semiquantitative negative urobilinogen, urine, semiquantitative (dipstick) 0.2 leukocyte esterase, urine, by dipstick negative appearance, urine clear urine color yellow specific gravity, urine 1.015 pH, urine, semiquantitative 5.0 protein, urine, semiquantitative (dipstick) negative glucose, urine, semiquantitative negative ketones, urine, by test strip negative bilirubin, urine negative Encounters Code Encounter Date Provider Facility CPT-69021 Level 3 Est. Patient 20:25:06 BRUCET Thu ray MD [facility] CPT-88874 Level 3 Est. Patient 20:37:45 ICE CREAM CHEF Thu ray MD [facility] CPT-06524 Level 4 New Patient 17:45:36 BRUCET Thu mojica MD [facility] CPT-72341 Level 3 Est. Patient 09:53:46 CDT Vero Dunbar [facility] CPT-81838 Level 3 Est. Patient 09:28:28 CDT Vero Dunbar [facility] CPT-86356 Level 3 New Patient 11:25:49 CDT Vero Dunbar [facility] Procedures Code Procedure Name Date Entry Date Standard Desc ription CPT-27704 Abdomen, 1 view 16:38:03 CDT CPT-44167 Abdomen, 1 view 09:47:14 ICE CREAM CHEF CPT-88529 Cystoscopy W/rem FB 13:59:34 CDT CPT-39900 Postop F/U Visit 13:59:29 CDT CPT-14038 Abd single AP View - XRAY USE ONLY 13:19:56 CDT CPT-99373 Abd single AP View - XRAY USE ONLY 11:48:17 CDT CPT-69369 Venipuncture Draw Fee 11:25:49 CDT
--- OUTSIDE RECORDS SUMMARY | 2019-07-19 22:55 | XMS REPORT | Clinical Summary ---
Author Author Admin, Kendra Flowers [employer] Address Unknown Phone Unavailable Allergies, Adverse Reactions, [...] Provider Patient Instruction DIALYVITE VITAMIN D3 MAX 29023 UNIT ORAL TABLET Take one by mouth d shyam CHOLECALCIFEROL 22352146373 Active Thu Reese MD Activ e CYCLOBENZAPRINE HCL 10 MG ORAL TABLET by mouth twice a day CYCLOBENZAPRINE HCL 35909417316 Active Thu Reese MD A ctive TRESIBA 100 UNIT/ML SUBCUTANEOUS SOLUTION 16 units at night INSULIN DEGLUDEC 81810536977 Active Thu Reese MD Active TRULICITY 1.5 MG/0.5ML SUBCUTANEOUS SOLUTION PEN-INJECTOR 1 IM sintia DULAGLUTIDE 68590391998 Active Thu Reese MD Active INVOKAMET 150-1000 MG ORAL TABLET 1 tab by mouth daily CANAGLIFLOZIN- METFORMIN HCL 52106896876 Active Thu Reese MD Active ACID CONTROLLER 10 MG ORAL TABLET 2 tabs by mouth daily FAMOTIDINE 21928129128 No Longer Active Thu Reese MD Acti ve VIIBRYD 40 MG ORAL TABLET 1 tab by mouth daily VILAZODONE HCL 35638371459 No Longer Active Thu Reese MD Acti ve IRBESARTAN-HYDROCHLOROTHIAZIDE 150-12.5 MG ORAL TABLET 1 tab by mouth daily IRBESARTAN-HYDROCHLOROTHIAZIDE 59014857500 Active Thu Reese MD Active AMLODIPINE BESYLATE 5 MG ORAL TABLET 1 tablet by mouth daily AMLODIPINE BESYLATE 43439552869 Active Thu Reese MD A ctive ALEVE 220 MG ORAL TABLET NAPROXEN SODIU M 49670239689 No Longer Active Thu Reese MD Active SIMVASTATIN 40 MG ORAL TABLET 1 tab daily at bedtime 02/14 SIMVASTATIN 86470668835 No Longer Active Thu Reese MD Active PROZAC 40 MG ORAL CAPSULE take one cap po daily FLUOXETINE HCL 71185509444 No Longer Active Thu Reese MD Acti ve DICLOFENAC SODIUM 75 MG ORAL TABLET DELAYED RELEASE Take one by mouth daily DICLOFENAC SODIUM 00064490778 No Longer Active Thu Reese MD Active ULTRAM 50 MG ORAL TABLET 1 tab po tid prn pain TRAMADOL HCL 50024505912 No Longer Active Thu Reese MD Acti ve COZAAR 50 MG ORAL TABLET take one tab po daily LOSARTAN POTASSIUM 05122676779 No Longer Active Thu Reese MD Acti ve MEDROL 4 MG ORAL TABLET THERAPY PACK take as directed METHYLPREDNISOLONE 51219670176 No Longer Active Thu Reese MD Active ZITHROMAX Z-EUNICE 250 MG ORAL TABLET take as directed 19/02/11 AZITHROMYCIN 59806545537 No Longer Active Thu Reese MD Acti ve BYSTOLIC 5 MG ORAL TABLET take on tab po daily NEBIVOLOL HCL 49517815491 No Longer Active Vero Dunbar PA Active LISINOPRIL 10 MG ORAL TABLET take one tab po daily 201 07/14/06 LISINOPRIL 51072120492 No Longer Active Vero GABRIEL Active LISINOPRIL 10 MG ORAL TABLET take one tab po daily 201 07/14/06 LISINOPRIL 10 MG ORAL TABLET 292903 LISINOPRIL Inactive BYSTOLIC 5 MG ORAL TABLET take on tab po daily BYSTOLIC 5 MG ORAL TABLET NEBIVOLOL HCL Inactive ZITHROMAX Z-EUNICE 250 MG ORAL TABLET take as directed 20 19/02/11 ZITHROMAX Z-EUNICE 250 MG ORAL TABLET 460045 AZITHROMYCIN Inact eriberto MEDROL 4 MG ORAL TABLET THERAPY PACK take as directed MEDROL 4 MG ORAL TABLET THERAPY PACK 296070 METHYLPREDNISOLONE [place] ctive COZAAR 50 MG ORAL TABLET take one tab po daily COZAAR 50 MG ORAL TABLET 870285 LOSARTAN POTASSIUM Inactive ULTRAM 50 MG ORAL TABLET 1 tab po tid prn pain ULTRAM 50 MG ORAL TABLET 498884 TRAMADOL HCL Inactive DICLOFENAC SODIUM 75 MG ORAL TABLET DELAYED RELEASE Take one by mouth daily DICLOFENAC SODIUM 75 MG ORAL TABLET HALIMA YED RELEASE 105907 DICLOFENAC SODIUM Inactive PROZAC 40 MG ORAL CAPSULE take one cap po daily PROZAC 40 MG ORAL CAPSULE 042221 FLUOXETINE HCL Inactive SIMVASTATIN 40 MG ORAL TABLET 1 tab daily at bedtime 2 SIMVASTATIN 40 MG ORAL TABLET 520231 SIMVASTATIN Inactive ALEVE 220 MG ORAL TABLET ALEVE 220 MG O RAL TABLET 76569269057 NAPROXEN SODIUM Inactive VIIBRYD 40 MG ORAL TABLET 1 tab by mouth daily VIIBRYD 40 MG ORAL TABLET VILAZODONE HCL Inactive ACID CONTROLLER 10 MG ORAL TABLET 2 tabs by mouth daily ACID CONTROLLER 10 MG ORAL TABLET 671160 FAMOTIDINE Inacti ve Advance Directives Directive Description [...] negative Encounters Code Encounter Date Provider Facility CPT-41645 Level 3 Est. Patient 20:25:06 BRUCET Thu ray MD [facility] CPT-82535 Level 3 Est. Patient 20:37:45 SOCIAL INSURANCE ADVISER Thu ray MD [facility] CPT-76612 Level 4 New Patient 17:45:36 CDT Thu mojica MD [facility] CPT-85259 Level 3 Est. Patient 09:53:46 CDT Vero Dunbar [facility] CPT-94338 Level 3 Est. Patient 09:28:28 CDT [facility]ero [facility] CPT-08006 Level 3 New Patient 11:25:49 CDT Vero [facility] Procedures Code Procedure Name Date Entry Date Standard Desc ription CPT-26131 Abdomen, 1 view 16:38:03 CDT CPT-40265 Abdomen, 1 view 09:47:14 SOCIAL INSURANCE ADVISER CPT-74967 Cystoscopy W/rem FB 13:59:34 CDT CPT-91711 Postop F/U Visit 13:59:29 CDT CPT-03516 Abd single AP View - XRAY USE ONLY 13:19:56 CDT CPT-40991 Abd single AP View - XRAY USE ONLY 11:48:17 CDT CPT-19829 Venipuncture Draw Fee 11:25:49 CDT
--- OUTSIDE RECORDS SUMMARY | 2019-07-19 22:56 | XMS REPORT | Clinical Summary ---
Author Author Admin, Kendra Flowers [employer] Address Unknown Phone Unavailable Allergies, Adverse Reactions, [...] Generic Name NDC Status Provider Patient Instruction INVOKAMET 150-1000 MG ORAL TABLET 1 tab by mouth daily CANAGLIFLOZIN- METFORMIN HCL 57561704387 Active Thu Reese MD Active ACID CONTROLLER 10 MG ORAL TABLET 2 tabs by mouth daily FAMOTIDINE 51290120280 No Longer Active Thu Reese MD Acti ve VIIBRYD 40 MG ORAL TABLET 1 tab by mouth daily VILAZODONE HCL 28570304941 No Longer Active Thu Reese MD Acti ve IRBESARTAN-HYDROCHLOROTHIAZIDE 150-12.5 MG ORAL TABLET 1 tab by mouth daily IRBESARTAN-HYDROCHLOROTHIAZIDE 24592336146 Active Thu Reese MD Active AMLODIPINE BESYLATE 5 MG ORAL TABLET 1 tablet by mouth daily AMLODIPINE BESYLATE 22275427701 Active Thu Reese MD A ctive ALEVE 220 MG ORAL TABLET NAPROXEN SODIU M 52062370564 No Longer Active Thu Reese MD Active SIMVASTATIN 40 MG ORAL TABLET 1 tab daily at bedtime 02/14 SIMVASTATIN 20850713633 No Longer Active Thu Reese MD Active PROZAC 40 MG ORAL CAPSULE take one cap po daily FLUOXETINE HCL 12101585390 No Longer Active Thu Reese MD Acti ve DICLOFENAC SODIUM 75 MG ORAL TABLET DELAYED RELEASE Take one by mouth daily DICLOFENAC SODIUM 13222955934 No Longer Active Thu Reese MD Active ULTRAM 50 MG ORAL TABLET 1 tab po tid prn pain TRAMADOL HCL 91307459072 No Longer Active Thu Reese MD Acti ve COZAAR 50 MG ORAL TABLET take one tab po daily LOSARTAN POTASSIUM 51140539362 No Longer Active Thu Reese MD Acti ve MEDROL 4 MG ORAL TABLET THERAPY PACK take as directed METHYLPREDNISOLONE 87359460244 No Longer Active Thu Reese MD Active ZITHROMAX Z-EUNICE 250 MG ORAL TABLET take as directed 20 19/02/11 AZITHROMYCIN 60824091100 No Longer Active Thu Reese MD Acti ve BYSTOLIC 5 MG ORAL TABLET take on tab po daily NEBIVOLOL HCL 29116858582 No Longer Active Vero GABRIEL Active LISINOPRIL 10 MG ORAL TABLET take one tab po daily 201 07/14/06 LISINOPRIL 46057449025 No Longer Active Vero GABRIEL Active LISINOPRIL 10 MG ORAL TABLET take one tab po daily 201 07/14/06 LISINOPRIL 10 MG ORAL TABLET 766357 LISINOPRIL Inactive BYSTOLIC 5 MG ORAL TABLET take on tab po daily BYSTOLIC 5 MG ORAL TABLET NEBIVOLOL HCL Inactive ZITHROMAX Z-EUNICE 250 MG ORAL TABLET take as directed 19/02/11 ZITHROMAX Z-EUNICE 250 MG ORAL TABLET 580899 AZITHROMYCIN Inact eriberto MEDROL 4 MG ORAL TABLET THERAPY PACK take as directed MEDROL 4 MG ORAL TABLET THERAPY PACK 047852 METHYLPREDNISOLONE Shaina ctive COZAAR 50 MG ORAL TABLET take one tab po daily COZAAR 50 MG ORAL TABLET 424077 LOSARTAN POTASSIUM Inactive ULTRAM 50 MG ORAL TABLET 1 tab po tid prn pain ULTRAM 50 MG ORAL TABLET 332469 TRAMADOL HCL Inactive DICLOFENAC SODIUM 75 MG ORAL TABLET DELAYED RELEASE Take one by mouth daily DICLOFENAC SODIUM 75 MG ORAL TABLET HALIMA YED RELEASE 616671 DICLOFENAC SODIUM Inactive PROZAC 40 MG ORAL CAPSULE take one cap po daily PROZAC 40 MG ORAL CAPSULE 653784 FLUOXETINE HCL Inactive SIMVASTATIN 40 MG ORAL TABLET 1 tab daily at bedtime 2 SIMVASTATIN 40 MG ORAL TABLET 19810507 SIMVASTATIN Inactive ALEVE 220 MG ORAL TABLET ALEVE 220 MG O RAL TABLET 681840 NAPROXEN SODIUM Inactive VIIBRYD 40 MG ORAL TABLET 1 tab by mouth daily VIIBRYD 40 MG ORAL TABLET VILAZODONE HCL Inactive ACID CONTROLLER 10 MG ORAL TABLET 2 tabs by mouth daily ACID CONTROLLER 10 MG ORAL TABLET 551593 FAMOTIDINE Inacti ve Advance Directives Directive Description Start Date PERMISSION TO SHARE Vital Signs Date Name Value Unit Range Description blood pressure, diastolic 89 mm[Hg] BP chaudhary [...] 0.2 leukocyte esterase, urine, by dipstick negative Encounters Code Encounter Date Provider Facility CPT-38167 Level 3 Est. 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 Patient 09:53:46 CDT Vero Dunbar [facility] CPT-83377 Level 3 Est. Patient 09:28:28 CDT Vero Dunbar [facility] CPT-20146 Level 3 New Patient 11:25:49 CDT Vero Dunbar [facility] Procedures Code Procedure Name Date Entry Date Standard Desc ription CPT-35903 Abdomen, 1 view 09:47:14 GLASS LAMINATING OPERATOR CPT-33414 Cystoscopy W/rem FB 13:59:34 CDT CPT-49814 Postop F/U Visit 13:59:29 CDT CPT-44745 Abd single AP View - XRAY USE ONLY 13:19:56 CDT CPT-55406 Abd single AP View - XRAY USE ONLY 11:48:17 CDT CPT-14630 Venipuncture Draw Fee 11:25:49 CDT
--- OUTSIDE RECORDS SUMMARY | 2019-07-19 22:56 | XMS REPORT | Clinical Summary ---
Author Author Admin, Kendra Flowers [employer] Address Unknown Phone Unavailable Allergies, Adverse Reactions, [...] tab by mouth daily CANAGLIFLOZIN- METFORMIN HCL 25790283661 Active Thu Reese MD Active ACID CONTROLLER 10 MG ORAL TABLET 2 tabs by mouth daily FAMOTIDINE 63984931979 No Longer Active Thu Reese MD Acti ve VIIBRYD 40 MG ORAL TABLET 1 tab by mouth daily VILAZODONE HCL 08795894766 No Longer Active Thu Reese MD Acti ve IRBESARTAN-HYDROCHLOROTHIAZIDE 150-12.5 MG ORAL TABLET 1 tab by mouth daily IRBESARTAN-HYDROCHLOROTHIAZIDE 79769127402 Active Thu Reese MD Active AMLODIPINE BESYLATE 5 MG ORAL TABLET 1 tablet by mouth daily AMLODIPINE BESYLATE 12994433733 Active Thu Reese MD A ctive ALEVE 220 MG ORAL TABLET NAPROXEN SODIU M 33516420246 No Longer Active Thu Reese MD Active SIMVASTATIN 40 MG ORAL TABLET 1 tab daily at bedtime 02/14 SIMVASTATIN 39721945931 No Longer Active Thu Reese MD Active PROZAC 40 MG ORAL CAPSULE take one cap po daily FLUOXETINE HCL 02988208428 No Longer Active Thu Reese MD Acti ve DICLOFENAC SODIUM 75 MG ORAL TABLET DELAYED RELEASE Take one by mouth daily DICLOFENAC SODIUM 56377095878 No Longer Active Thu Reese MD Active ULTRAM 50 MG ORAL TABLET 1 tab po tid prn pain TRAMADOL HCL 04415843943 No Longer Active Thu Reese MD Acti ve COZAAR 50 MG ORAL TABLET take one tab po daily LOSARTAN POTASSIUM 59444840930 No Longer Active Thu Reese MD Acti ve MEDROL 4 MG ORAL TABLET THERAPY PACK take as directed METHYLPREDNISOLONE 13965028956 No Longer Active Thu Reese MD Active ZITHROMAX Z-EUNICE 250 MG ORAL TABLET take as directed 20 19/02/11 AZITHROMYCIN 63099012039 No Longer Active Thu Reese MD Acti ve BYSTOLIC 5 MG ORAL TABLET take on tab po daily NEBIVOLOL HCL 62974413817 No Longer Active Vero Dunbar PA Active LISINOPRIL 10 MG ORAL TABLET take one tab po daily 201 07/14/06 LISINOPRIL 19965731759 No Longer Active Vero Dunbar PA Active LISINOPRIL 10 MG ORAL TABLET take one tab po daily 201 07/14/06 LISINOPRIL 10 MG ORAL TABLET 174073 LISINOPRIL Inactive BYSTOLIC 5 MG ORAL TABLET take on tab po daily BYSTOLIC 5 MG ORAL TABLET NEBIVOLOL HCL Inactive ZITHROMAX Z-EUNICE 250 MG ORAL TABLET take as directed 19/02/11 ZITHROMAX Z-EUNICE 250 MG ORAL TABLET 826758 AZITHROMYCIN Inact eriberto MEDROL 4 MG ORAL TABLET THERAPY PACK take as directed MEDROL 4 MG ORAL TABLET THERAPY PACK 689505 METHYLPREDNISOLONE Shaina ctive COZAAR 50 MG ORAL TABLET take one tab po daily COZAAR 50 MG ORAL TABLET 084292 LOSARTAN POTASSIUM Inactive ULTRAM 50 MG ORAL TABLET 1 tab po tid prn pain ULTRAM 50 MG ORAL TABLET 480551 TRAMADOL HCL Inactive DICLOFENAC SODIUM 75 MG ORAL TABLET DELAYED RELEASE Take one by mouth daily DICLOFENAC SODIUM 75 MG ORAL TABLET HALIMA YED RELEASE 065280 DICLOFENAC SODIUM Inactive PROZAC 40 MG ORAL CAPSULE take one cap po daily PROZAC 40 MG ORAL CAPSULE 801644 FLUOXETINE HCL Inactive SIMVASTATIN 40 MG ORAL TABLET 1 tab daily at bedtime 2 SIMVASTATIN 40 MG ORAL TABLET 19810507 SIMVASTATIN Inactive ALEVE 220 MG ORAL TABLET ALEVE 220 MG O RAL TABLET 461930 NAPROXEN SODIUM Inactive VIIBRYD 40 MG ORAL TABLET 1 tab by mouth daily VIIBRYD 40 MG ORAL TABLET VILAZODONE HCL Inactive ACID CONTROLLER 10 MG ORAL TABLET 2 tabs by mouth daily ACID CONTROLLER 10 MG ORAL TABLET 247130 FAMOTIDINE Inacti ve Advance Directives Directive Description [...] negative Encounters Code Encounter Date Provider Facility CPT-46151 Level 3 Est. 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 CPT-53919 Level 4 New Patient 17:45:36 CDT Thu mojica MD [facility] CPT-10940 Level 3 Est. Patient 09:53:46 CDT Vero Dunbar [facility] CPT-41226 Level 3 Est. Patient 09:28:28 CDT Vero Dunbar [facility] CPT-67039 Level 3 New Patient 11:25:49 CDT Vero Dunbar [facility] Procedures Code Procedure Name Date Entry Date Standard Desc ription CPT-47676 Abdomen, 1 view 09:47:14 CRIMINAL JUSTICE INSTRUCTOR CPT-86930 Cystoscopy W/rem FB 13:59:34 CDT CPT-62542 Postop F/U Visit 13:59:29 CDT CPT-05298 Abd single AP View - XRAY USE ONLY 13:19:56 CDT CPT-01851 Abd single AP View - XRAY USE ONLY 11:48:17 CDT CPT-72462 Venipuncture Draw Fee 11:25:49 CDT
--- OUTSIDE RECORDS SUMMARY | 2019-07-19 22:56 | XMS REPORT | Clinical Summary ---
Author Author Admin, Kendra Flowers [employer] Address Unknown Phone Unavailable Allergies, Adverse Reactions, [...] tab by mouth daily CANAGLIFLOZIN- METFORMIN HCL 42976635580 Active Thu Reese MD Active ACID CONTROLLER 10 MG ORAL TABLET 2 tabs by mouth daily FAMOTIDINE 16107004760 No Longer Active Thu Reese MD Acti ve VIIBRYD 40 MG ORAL TABLET 1 tab by mouth daily VILAZODONE HCL 43989827032 No Longer Active Thu Reese MD Acti ve IRBESARTAN-HYDROCHLOROTHIAZIDE 150-12.5 MG ORAL TABLET 1 tab by mouth daily IRBESARTAN-HYDROCHLOROTHIAZIDE 60778631521 Active Thu Reese MD Active AMLODIPINE BESYLATE 5 MG ORAL TABLET 1 tablet by mouth daily AMLODIPINE BESYLATE 30683382705 Active Thu Reese MD A ctive ALEVE 220 MG ORAL TABLET NAPROXEN SODIU M 25340928816 No Longer Active Thu Reese MD Active SIMVASTATIN 40 MG ORAL TABLET 1 tab daily at bedtime 02/14 SIMVASTATIN 10933804977 No Longer Active Thu Reese MD Active PROZAC 40 MG ORAL CAPSULE take one cap po daily FLUOXETINE HCL 78478670711 No Longer Active Thu Reese MD Acti ve DICLOFENAC SODIUM 75 MG ORAL TABLET DELAYED RELEASE Take one by mouth daily DICLOFENAC SODIUM 63784841466 No Longer Active Thu Reese MD Active ULTRAM 50 MG ORAL TABLET 1 tab po tid prn pain TRAMADOL HCL 19184209250 No Longer Active Thu Reese MD Acti ve COZAAR 50 MG ORAL TABLET take one tab po daily LOSARTAN POTASSIUM 59296154716 No Longer Active Thu Reese MD Acti ve MEDROL 4 MG ORAL TABLET THERAPY PACK take as directed METHYLPREDNISOLONE 70674128854 No Longer Active Thu Reese MD Active ZITHROMAX Z-EUNICE 250 MG ORAL TABLET take as directed 20 19/02/11 AZITHROMYCIN 00719965402 No Longer Active Thu Reese MD Acti ve BYSTOLIC 5 MG ORAL TABLET take on tab po daily NEBIVOLOL HCL 42841781620 No Longer Active Vero Dunbar PA Active LISINOPRIL 10 MG ORAL TABLET take one tab po daily 201 07/14/06 LISINOPRIL 12072982378 No Longer Active Vero Dunbar PA Active LISINOPRIL 10 MG ORAL TABLET take one tab po daily 201 07/14/06 LISINOPRIL 10 MG ORAL TABLET 522994 LISINOPRIL Inactive BYSTOLIC 5 MG ORAL TABLET take on tab po daily BYSTOLIC 5 MG ORAL TABLET NEBIVOLOL HCL Inactive ZITHROMAX Z-EUNICE 250 MG ORAL TABLET take as directed 19/02/11 ZITHROMAX Z-EUNICE 250 MG ORAL TABLET 913121 AZITHROMYCIN Inact eriberto MEDROL 4 MG ORAL TABLET THERAPY PACK take as directed MEDROL 4 MG ORAL TABLET THERAPY PACK 138533 METHYLPREDNISOLONE Shaina ctive COZAAR 50 MG ORAL TABLET take one tab po daily COZAAR 50 MG ORAL TABLET 064222 LOSARTAN POTASSIUM Inactive ULTRAM 50 MG ORAL TABLET 1 tab po tid prn pain ULTRAM 50 MG ORAL TABLET 879235 TRAMADOL HCL Inactive DICLOFENAC SODIUM 75 MG ORAL TABLET DELAYED RELEASE Take one by mouth daily DICLOFENAC SODIUM 75 MG ORAL TABLET HALIMA YED RELEASE 835487 DICLOFENAC SODIUM Inactive PROZAC 40 MG ORAL CAPSULE take one cap po daily PROZAC 40 MG ORAL CAPSULE 147791 FLUOXETINE HCL Inactive SIMVASTATIN 40 MG ORAL TABLET 1 tab daily at bedtime 2 SIMVASTATIN 40 MG ORAL TABLET 19810507 SIMVASTATIN Inactive ALEVE 220 MG ORAL TABLET ALEVE 220 MG O RAL TABLET 622879 NAPROXEN SODIUM Inactive VIIBRYD 40 MG ORAL TABLET 1 tab by mouth daily VIIBRYD 40 MG ORAL TABLET VILAZODONE HCL Inactive ACID CONTROLLER 10 MG ORAL TABLET 2 tabs by mouth daily ACID CONTROLLER 10 MG ORAL TABLET 591604 FAMOTIDINE Inacti ve Advance Directives Directive Description [...] negative Encounters Code Encounter Date Provider Facility CPT-13839 Level 3 Est. 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 Patient 09:53:46 CDT Vero Dunbar [facility] CPT-31072 Level 3 Est. Patient 09:28:28 CDT Vero Dunbar [facility] CPT-49970 Level 3 New Patient 11:25:49 CDT Vero [facility] Procedures Code Procedure Name Date Entry Date Standard Desc ription CPT-20539 Abdomen, 1 view 16:38:03 CDT CPT-54612 Abdomen, 1 view 09:47:14 WIRE TAPER CPT-54431 Cystoscopy W/rem FB 13:59:34 CDT CPT-86646 Postop F/U Visit 13:59:29 CDT CPT-78771 Abd single AP View - XRAY USE ONLY 13:19:56 CDT CPT-03174 Abd single AP View - XRAY USE ONLY 11:48:17 CDT CPT-34013 Venipuncture Draw Fee 11:25:49 CDT
--- OUTSIDE RECORDS SUMMARY | 2019-07-19 22:56 | XMS REPORT | Clinical Summary ---
Author Author Admin, Kendra Flowers [employer] Address Unknown Phone Unavailable Allergies, Adverse Reactions, [...] Provider Patient Instruction DIALYVITE VITAMIN D3 MAX 18023 UNIT ORAL TABLET Take one by mouth d aily CHOLECALCIFEROL 66558123635 Active Thu Reese MD Activ e CYCLOBENZAPRINE HCL 10 MG ORAL TABLET by mouth twice a day CYCLOBENZAPRINE HCL 10055492294 Active Thu Reese MD A ctive TRESIBA 100 UNIT/ML SUBCUTANEOUS SOLUTION 16 units at night INSULIN DEGLUDEC 95207074829 Active Thu Reese MD Active TRULICITY 1.5 MG/0.5ML SUBCUTANEOUS SOLUTION PEN-INJECTOR 1 IM sintia DULAGLUTIDE 94007439083 Active Thu Reese MD Active INVOKAMET 150-1000 MG ORAL TABLET 1 tab by mouth daily CANAGLIFLOZIN- METFORMIN HCL 56709009265 Active Thu Reese MD Active ACID CONTROLLER 10 MG ORAL TABLET 2 tabs by mouth daily FAMOTIDINE 92259608380 No Longer Active Thu Reese MD Acti ve VIIBRYD 40 MG ORAL TABLET 1 tab by mouth daily VILAZODONE HCL 10886666807 No Longer Active Thu Reese MD Acti ve IRBESARTAN-HYDROCHLOROTHIAZIDE 150-12.5 MG ORAL TABLET 1 tab by mouth daily IRBESARTAN-HYDROCHLOROTHIAZIDE 74833822885 Active Thu Reese MD Active AMLODIPINE BESYLATE 5 MG ORAL TABLET 1 tablet by mouth daily AMLODIPINE BESYLATE 23496028988 Active Thu Reese MD A ctive ALEVE 220 MG ORAL TABLET NAPROXEN SODIU M 57161195528 No Longer Active Thu Reese MD Active SIMVASTATIN 40 MG ORAL TABLET 1 tab daily at bedtime 02/14 SIMVASTATIN 58386430878 No Longer Active Thu Reese MD Active PROZAC 40 MG ORAL CAPSULE take one cap po daily FLUOXETINE HCL 80440667518 No Longer Active Thu Reese MD Acti ve DICLOFENAC SODIUM 75 MG ORAL TABLET DELAYED RELEASE Take one by mouth daily DICLOFENAC SODIUM 37518466339 No Longer Active Thu Reese MD Active ULTRAM 50 MG ORAL TABLET 1 tab po tid prn pain TRAMADOL HCL 73439822159 No Longer Active Thu Reese MD Acti ve COZAAR 50 MG ORAL TABLET take one tab po daily LOSARTAN POTASSIUM 48969413090 No Longer Active Thu Reese MD Acti ve MEDROL 4 MG ORAL TABLET THERAPY PACK take as directed METHYLPREDNISOLONE 13172607710 No Longer Active Thu Reese MD Active ZITHROMAX Z-EUNICE 250 MG ORAL TABLET take as directed 19/02/11 AZITHROMYCIN 42661630410 No Longer Active Thu Reese MD Acti ve BYSTOLIC 5 MG ORAL TABLET take on tab po daily NEBIVOLOL HCL 19133537578 No Longer Active Vero GABRIEL Active LISINOPRIL 10 MG ORAL TABLET take one tab po daily 201 07/14/06 LISINOPRIL 74500685174 No Longer Active Vero GABRIEL Active LISINOPRIL 10 MG ORAL TABLET take one tab po daily 201 07/14/06 LISINOPRIL 10 MG ORAL TABLET 586118 LISINOPRIL Inactive BYSTOLIC 5 MG ORAL TABLET take on tab po daily BYSTOLIC 5 MG ORAL TABLET NEBIVOLOL HCL Inactive ZITHROMAX Z-EUNICE 250 MG ORAL TABLET take as directed 19/02/11 ZITHROMAX Z-EUNICE 250 MG ORAL TABLET 419108 AZITHROMYCIN Inact eriberto MEDROL 4 MG ORAL TABLET THERAPY PACK take as directed MEDROL 4 MG ORAL TABLET THERAPY PACK 969046 METHYLPREDNISOLONE [place] ctive COZAAR 50 MG ORAL TABLET take one tab po daily COZAAR 50 MG ORAL TABLET 963026 LOSARTAN POTASSIUM Inactive ULTRAM 50 MG ORAL TABLET 1 tab po tid prn pain ULTRAM 50 MG ORAL TABLET 502035 TRAMADOL HCL Inactive DICLOFENAC SODIUM 75 MG ORAL TABLET DELAYED RELEASE Take one by mouth daily DICLOFENAC SODIUM 75 MG ORAL TABLET HALIMA YED RELEASE 634674 DICLOFENAC SODIUM Inactive PROZAC 40 MG ORAL CAPSULE take one cap po daily PROZAC 40 MG ORAL CAPSULE 100642 FLUOXETINE HCL Inactive SIMVASTATIN 40 MG ORAL TABLET 1 tab daily at bedtime 2 SIMVASTATIN 40 MG ORAL TABLET 860295 SIMVASTATIN Inactive ALEVE 220 MG ORAL TABLET ALEVE 220 MG O RAL TABLET 240873 NAPROXEN SODIUM Inactive VIIBRYD 40 MG ORAL TABLET 1 tab by mouth daily VIIBRYD 40 MG ORAL TABLET VILAZODONE HCL Inactive ACID CONTROLLER 10 MG ORAL TABLET 2 tabs by mouth daily ACID CONTROLLER 10 MG ORAL TABLET 320139 FAMOTIDINE Inacti ve Advance Directives Directive Description [...] negative Encounters Code Encounter Date Provider Facility CPT-16512 Level 3 Est. Patient 20:25:06 BRUCET Thu ray MD [facility] CPT-48553 Level 3 Est. 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 Patient 09:53:46 CDT Vero Dunbar [facility] CPT-18587 Level 3 Est. Patient 09:28:28 CDT Vero Dunbar 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
--- OUTSIDE RECORDS SUMMARY | 2019-07-19 22:56 | XMS REPORT | Clinical Summary ---
Author Author Admin, Kendra Flowers [employer] Address Unknown Phone Unavailable Allergies, Adverse Reactions, [...] Provider Patient Instruction DIALYVITE VITAMIN D3 MAX 81874 UNIT ORAL TABLET Take one by mouth d shyam CHOLECALCIFEROL 32310901289 Active Thu Reese MD Activ e CYCLOBENZAPRINE HCL 10 MG ORAL TABLET by mouth twice a day CYCLOBENZAPRINE HCL 73725171103 Active Thu Reese MD A ctive TRESIBA 100 UNIT/ML SUBCUTANEOUS SOLUTION 16 units at night INSULIN DEGLUDEC 44308202063 Active Thu Reese MD Active TRULICITY 1.5 MG/0.5ML SUBCUTANEOUS SOLUTION PEN-INJECTOR 1 IM sintia DULAGLUTIDE 38371842984 Active Thu Reese MD Active INVOKAMET 150-1000 MG ORAL TABLET 1 tab by mouth daily CANAGLIFLOZIN- METFORMIN HCL 19402278476 Active Thu Reese MD Active ACID CONTROLLER 10 MG ORAL TABLET 2 tabs by mouth daily FAMOTIDINE 34093930922 No Longer Active Thu Reese MD Acti ve VIIBRYD 40 MG ORAL TABLET 1 tab by mouth daily VILAZODONE HCL 52202360045 No Longer Active Thu Reese MD Acti ve IRBESARTAN-HYDROCHLOROTHIAZIDE 150-12.5 MG ORAL TABLET 1 tab by mouth daily IRBESARTAN-HYDROCHLOROTHIAZIDE 87170345636 Active Thu Reese MD Active AMLODIPINE BESYLATE 5 MG ORAL TABLET 1 tablet by mouth daily AMLODIPINE BESYLATE 92974020173 Active Thu Reese MD A ctive ALEVE 220 MG ORAL TABLET NAPROXEN SODIU M 31693923357 No Longer Active Thu Reese MD Active SIMVASTATIN 40 MG ORAL TABLET 1 tab daily at bedtime 02/14 SIMVASTATIN 19799226459 No Longer Active Thu Reese MD Active PROZAC 40 MG ORAL CAPSULE take one cap po daily FLUOXETINE HCL 00450239280 No Longer Active Thu Reese MD Acti ve DICLOFENAC SODIUM 75 MG ORAL TABLET DELAYED RELEASE Take one by mouth daily DICLOFENAC SODIUM 56203422447 No Longer Active Thu Reese MD Active ULTRAM 50 MG ORAL TABLET 1 tab po tid prn pain TRAMADOL HCL 37370524828 No Longer Active Thu Reese MD Acti ve COZAAR 50 MG ORAL TABLET take one tab po daily LOSARTAN POTASSIUM 03747302012 No Longer Active Thu Reese MD Acti ve MEDROL 4 MG ORAL TABLET THERAPY PACK take as directed METHYLPREDNISOLONE 71732552899 No Longer Active Thu Reese MD Active ZITHROMAX Z-EUNICE 250 MG ORAL TABLET take as directed 19/02/11 AZITHROMYCIN 33509831133 No Longer Active Thu Reese MD Acti ve BYSTOLIC 5 MG ORAL TABLET take on tab po daily NEBIVOLOL HCL 40957809782 No Longer Active Vero Dunbar PA Active LISINOPRIL 10 MG ORAL TABLET take one tab po daily 201 07/14/06 LISINOPRIL 99754388812 No Longer Active Vero GABRIEL Active LISINOPRIL 10 MG ORAL TABLET take one tab po daily 201 07/14/06 LISINOPRIL 10 MG ORAL TABLET 855321 LISINOPRIL Inactive BYSTOLIC 5 MG ORAL TABLET take on tab po daily BYSTOLIC 5 MG ORAL TABLET NEBIVOLOL HCL Inactive ZITHROMAX Z-EUNICE 250 MG ORAL TABLET take as directed 20 19/02/11 ZITHROMAX Z-EUNICE 250 MG ORAL TABLET 525425 AZITHROMYCIN Inact eriberto MEDROL 4 MG ORAL TABLET THERAPY PACK take as directed MEDROL 4 MG ORAL TABLET THERAPY PACK 134980 METHYLPREDNISOLONE [place] ctive COZAAR 50 MG ORAL TABLET take one tab po daily COZAAR 50 MG ORAL TABLET 298274 LOSARTAN POTASSIUM Inactive ULTRAM 50 MG ORAL TABLET 1 tab po tid prn pain ULTRAM 50 MG ORAL TABLET 875034 TRAMADOL HCL Inactive DICLOFENAC SODIUM 75 MG ORAL TABLET DELAYED RELEASE Take one by mouth daily DICLOFENAC SODIUM 75 MG ORAL TABLET HALIMA YED RELEASE 297654 DICLOFENAC SODIUM Inactive PROZAC 40 MG ORAL CAPSULE take one cap po daily PROZAC 40 MG ORAL CAPSULE 265204 FLUOXETINE HCL Inactive SIMVASTATIN 40 MG ORAL TABLET 1 tab daily at bedtime 2 SIMVASTATIN 40 MG ORAL TABLET 909694 SIMVASTATIN Inactive ALEVE 220 MG ORAL TABLET ALEVE 220 MG O RAL TABLET 21495545046 NAPROXEN SODIUM Inactive VIIBRYD 40 MG ORAL TABLET 1 tab by mouth daily VIIBRYD 40 MG ORAL TABLET VILAZODONE HCL Inactive ACID CONTROLLER 10 MG ORAL TABLET 2 tabs by mouth daily ACID CONTROLLER 10 MG ORAL TABLET 975456 FAMOTIDINE Inacti ve Advance Directives Directive Description [...] negative Encounters Code Encounter Date Provider Facility CPT-01678 Level 3 Est. Patient 20:25:06 BRUCET Thu ray MD [facility] CPT-06613 Level 3 Est. Patient 20:37:45 SCIENTIFIC ARTIST Thu ary MD [facility] CPT-39416 Level 4 New Patient 17:45:36 CDT Thu mojica MD [facility] CPT-45250 Level 3 Est. Patient 09:53:46 CDT Vero Dunbar [facility] CPT-22241 Level 3 Est. Patient 09:28:28 CDT Vero Dunbar [facility] CPT-05151 Level 3 New Patient 11:25:49 CDT Vero [facility] [place] Procedures Code Procedure Name Date Entry Date Standard Desc ription CPT-17028 Abdomen, 1 view 16:38:03 CDT CPT-03161 Abdomen, 1 view 09:47:14 SCIENTIFIC ARTIST CPT-74172 Cystoscopy W/rem FB 13:59:34 CDT CPT-06918 Postop F/U Visit 13:59:29 CDT CPT-68670 Abd single AP View - XRAY USE ONLY 13:19:56 CDT CPT-00003 Abd single AP View - XRAY USE ONLY 11:48:17 CDT CPT-82028 Venipuncture Draw Fee 11:25:49 CDT
--- OUTSIDE RECORDS SUMMARY | 2019-07-19 22:56 | XMS REPORT | Clinical Summary ---
Author Author Admin, Kendra Flowers [email or web address] Address Unknown Phone Unavailable Allergies, Adverse Reactions, [...] Provider Patient Instruction DIALYVITE VITAMIN D3 MAX 26451 UNIT ORAL TABLET Take one by mouth d aily CHOLECALCIFEROL 63259690770 Active Thu Reese MD Activ e CYCLOBENZAPRINE HCL 10 MG ORAL TABLET by mouth twice a day CYCLOBENZAPRINE HCL 16810244886 Active Thu Reese MD A ctive TRESIBA 100 UNIT/ML SUBCUTANEOUS SOLUTION 16 units at night INSULIN DEGLUDEC 64769543419 Active Thu Reese MD Active TRULICITY 1.5 MG/0.5ML SUBCUTANEOUS SOLUTION PEN-INJECTOR 1 IM sintia DULAGLUTIDE 76644025737 Active Thu Reese MD Active INVOKAMET 150-1000 MG ORAL TABLET 1 tab by mouth daily CANAGLIFLOZIN- METFORMIN HCL 32899819461 Active Thu Reese MD Active ACID CONTROLLER 10 MG ORAL TABLET 2 tabs by mouth daily FAMOTIDINE 97573260109 No Longer Active Thu Reese MD Acti ve VIIBRYD 40 MG ORAL TABLET 1 tab by mouth daily VILAZODONE HCL 78040944265 No Longer Active Thu Reese MD Acti ve IRBESARTAN-HYDROCHLOROTHIAZIDE 150-12.5 MG ORAL TABLET 1 tab by mouth daily IRBESARTAN-HYDROCHLOROTHIAZIDE 25930807461 Active Thu Reese MD Active AMLODIPINE BESYLATE 5 MG ORAL TABLET 1 tablet by mouth daily AMLODIPINE BESYLATE 33132768008 Active Thu Reese MD A ctive ALEVE 220 MG ORAL TABLET NAPROXEN SODIU M 86266819015 No Longer Active Thu Reese MD Active SIMVASTATIN 40 MG ORAL TABLET 1 tab daily at bedtime 02/14 SIMVASTATIN 70375942285 No Longer Active Thu Reese MD Active PROZAC 40 MG ORAL CAPSULE take one cap po daily FLUOXETINE HCL 19939319762 No Longer Active Thu Reese MD Acti ve DICLOFENAC SODIUM 75 MG ORAL TABLET DELAYED RELEASE Take one by mouth daily DICLOFENAC SODIUM 84460027268 No Longer Active Thu Reese MD Active ULTRAM 50 MG ORAL TABLET 1 tab po tid prn pain TRAMADOL HCL 75193098800 No Longer Active Thu Reese MD Acti ve COZAAR 50 MG ORAL TABLET take one tab po daily LOSARTAN POTASSIUM 76559542213 No Longer Active Thu Reese MD Acti ve MEDROL 4 MG ORAL TABLET THERAPY PACK take as directed METHYLPREDNISOLONE 62693719667 No Longer Active Thu Reese MD Active ZITHROMAX Z-EUNICE 250 MG ORAL TABLET take as directed 19/02/11 AZITHROMYCIN 57379734073 No Longer Active Thu Reese MD Acti ve BYSTOLIC 5 MG ORAL TABLET take on tab po daily NEBIVOLOL HCL 17468152014 No Longer Active Vero GABRIEL Active LISINOPRIL 10 MG ORAL TABLET take one tab po daily 201 07/14/06 LISINOPRIL 85391392293 No Longer Active Vero GABRIEL Active LISINOPRIL 10 MG ORAL TABLET take one tab po daily 201 07/14/06 LISINOPRIL 10 MG ORAL TABLET 988591 LISINOPRIL Inactive BYSTOLIC 5 MG ORAL TABLET take on tab po daily BYSTOLIC 5 MG ORAL TABLET NEBIVOLOL HCL Inactive ZITHROMAX Z-EUNICE 250 MG ORAL TABLET take as directed 19/02/11 ZITHROMAX Z-EUNICE 250 MG ORAL TABLET 190684 AZITHROMYCIN Inact eriberto MEDROL 4 MG ORAL TABLET THERAPY PACK take as directed MEDROL 4 MG ORAL TABLET THERAPY PACK 848571 METHYLPREDNISOLONE [place] ctive COZAAR 50 MG ORAL TABLET take one tab po daily COZAAR 50 MG ORAL TABLET 664134 LOSARTAN POTASSIUM Inactive ULTRAM 50 MG ORAL TABLET 1 tab po tid prn pain ULTRAM 50 MG ORAL TABLET 840392 TRAMADOL HCL Inactive DICLOFENAC SODIUM 75 MG ORAL TABLET DELAYED RELEASE Take one by mouth daily DICLOFENAC SODIUM 75 MG ORAL TABLET HALIMA YED RELEASE 225039 DICLOFENAC SODIUM Inactive PROZAC 40 MG ORAL CAPSULE take one cap po daily PROZAC 40 MG ORAL CAPSULE 694453 FLUOXETINE HCL Inactive SIMVASTATIN 40 MG ORAL TABLET 1 tab daily at bedtime 2 SIMVASTATIN 40 MG ORAL TABLET 725123 SIMVASTATIN Inactive ALEVE 220 MG ORAL TABLET ALEVE 220 MG O RAL TABLET 64436822484 NAPROXEN SODIUM Inactive VIIBRYD 40 MG ORAL TABLET 1 tab by mouth daily VIIBRYD 40 MG ORAL TABLET VILAZODONE HCL Inactive ACID CONTROLLER 10 MG ORAL TABLET 2 tabs by mouth daily ACID CONTROLLER 10 MG ORAL TABLET 923070 FAMOTIDINE Inacti ve Advance Directives Directive Description [...] negative Encounters Code Encounter Date Provider Facility CPT-38886 Level 3 Est. Patient 20:25:06 BRUCET Thu ray MD [facility] CPT-95389 Level 3 Est. 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 Patient 09:53:46 CDT Vero Dunbar [facility] CPT-99199 Level 3 Est. 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
--- OUTSIDE RECORDS SUMMARY | 2019-07-19 22:56 | XMS REPORT | Clinical Summary ---
Author Author Admin, Kendra Flowers [employer] Address Unknown Phone Unavailable Allergies, Adverse Reactions, [...] of colonic polyps PULMONARY NODULE 518.89 Active Evro Pool PA Other diseases of lung, not [...] Provider Patient Instruction DIALYVITE VITAMIN D3 MAX 87054 UNIT ORAL TABLET Take one by mouth d aily CHOLECALCIFEROL 82657306500 Active Thu Reese MD Activ e CYCLOBENZAPRINE HCL 10 MG ORAL TABLET by mouth twice a day CYCLOBENZAPRINE HCL 26177182442 Active Thu Reese MD A ctive TRESIBA 100 UNIT/ML SUBCUTANEOUS SOLUTION 16 units at night INSULIN DEGLUDEC 50744001213 Active Thu Reese MD Active TRULICITY 1.5 MG/0.5ML SUBCUTANEOUS SOLUTION PEN-INJECTOR 1 IM sintia DULAGLUTIDE 51432497925 Active Thu Reese MD Active INVOKAMET 150-1000 MG ORAL TABLET 1 tab by mouth daily CANAGLIFLOZIN- METFORMIN HCL 12281790170 Active Thu Reese MD Active ACID CONTROLLER 10 MG ORAL TABLET 2 tabs by mouth daily FAMOTIDINE 50702084622 No Longer Active Thu Reese MD Acti ve VIIBRYD 40 MG ORAL TABLET 1 tab by mouth daily VILAZODONE HCL 37833565494 No Longer Active Thu Reese MD Acti ve IRBESARTAN-HYDROCHLOROTHIAZIDE 150-12.5 MG ORAL TABLET 1 tab by mouth daily IRBESARTAN-HYDROCHLOROTHIAZIDE 39335414810 Active Thu Reese MD Active AMLODIPINE BESYLATE 5 MG ORAL TABLET 1 tablet by mouth daily AMLODIPINE BESYLATE 86002922618 Active Thu Reese MD A ctive ALEVE 220 MG ORAL TABLET NAPROXEN SODIU M 08344676936 No Longer Active Thu Reese MD Active SIMVASTATIN 40 MG ORAL TABLET 1 tab daily at bedtime 02/14 SIMVASTATIN 12366549142 No Longer Active Thu Reese MD Active PROZAC 40 MG ORAL CAPSULE take one cap po daily FLUOXETINE HCL 24538911974 No Longer Active Thu Reese MD Acti ve DICLOFENAC SODIUM 75 MG ORAL TABLET DELAYED RELEASE Take one by mouth daily DICLOFENAC SODIUM 64361464650 No Longer Active Thu Reese MD Active ULTRAM 50 MG ORAL TABLET 1 tab po tid prn pain TRAMADOL HCL 14044312762 No Longer Active Thu Reese MD Acti ve COZAAR 50 MG ORAL TABLET take one tab po daily LOSARTAN POTASSIUM 69812127442 No Longer Active Thu Reese MD Acti ve MEDROL 4 MG ORAL TABLET THERAPY PACK take as directed METHYLPREDNISOLONE 41905311532 No Longer Active Thu Reese MD Active ZITHROMAX Z-EUNICE 250 MG ORAL TABLET take as directed 19/02/11 AZITHROMYCIN 85231296722 No Longer Active Thu Reese MD Acti ve BYSTOLIC 5 MG ORAL TABLET take on tab po daily NEBIVOLOL HCL 85846173016 No Longer Active Vero GABRIEL Active LISINOPRIL 10 MG ORAL TABLET take one tab po daily 201 07/14/06 LISINOPRIL 73174563031 No Longer Active Vero GABRIEL Active LISINOPRIL 10 MG ORAL TABLET take one tab po daily 201 07/14/06 LISINOPRIL 10 MG ORAL TABLET 445281 LISINOPRIL Inactive BYSTOLIC 5 MG ORAL TABLET take on tab po daily BYSTOLIC 5 MG ORAL TABLET NEBIVOLOL HCL Inactive ZITHROMAX Z-EUNICE 250 MG ORAL TABLET take as directed 19/02/11 ZITHROMAX Z-EUNICE 250 MG ORAL TABLET 555403 AZITHROMYCIN Inact eriberto MEDROL 4 MG ORAL TABLET THERAPY PACK take as directed MEDROL 4 MG ORAL TABLET THERAPY PACK 674061 METHYLPREDNISOLONE [place] ctive COZAAR 50 MG ORAL TABLET take one tab po daily COZAAR 50 MG ORAL TABLET 491217 LOSARTAN POTASSIUM Inactive ULTRAM 50 MG ORAL TABLET 1 tab po tid prn pain ULTRAM 50 MG ORAL TABLET 634791 TRAMADOL HCL Inactive DICLOFENAC SODIUM 75 MG ORAL TABLET DELAYED RELEASE Take one by mouth daily DICLOFENAC SODIUM 75 MG ORAL TABLET HALIMA YED RELEASE 719726 DICLOFENAC SODIUM Inactive PROZAC 40 MG ORAL CAPSULE take one cap po daily PROZAC 40 MG ORAL CAPSULE 987048 FLUOXETINE HCL Inactive SIMVASTATIN 40 MG ORAL TABLET 1 tab daily at bedtime 2 SIMVASTATIN 40 MG ORAL TABLET 693030 SIMVASTATIN Inactive ALEVE 220 MG ORAL TABLET ALEVE 220 MG O RAL TABLET 03498896243 NAPROXEN SODIUM Inactive VIIBRYD 40 MG ORAL TABLET 1 tab by mouth daily VIIBRYD 40 MG ORAL TABLET VILAZODONE HCL Inactive ACID CONTROLLER 10 MG ORAL TABLET 2 tabs by mouth daily ACID CONTROLLER 10 MG ORAL TABLET 109881 FAMOTIDINE Inacti ve Advance Directives Directive Description [...] negative Encounters Code Encounter Date Provider Facility CPT-76176 Level 3 Est. Patient 20:25:06 BRUCET Thu ray MD [facility] CPT-13919 Level 3 Est. 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 Patient 09:53:46 CDT Vero Dunbar [facility] [place] CPT-19307 Level 3 Est. Patient 09:28:[address] [facility] [place] CPT-69707 Level 3 New Patient 11:25:[address] [facility] [place] Procedures Code Procedure Name Date Entry Date Standard Desc ription CPT-75671 Abdomen, 1 view 16:38:03 CDT CPT-15193 Abdomen, 1 view 09:47:14 OVERLOCKER CPT-36317 Cystoscopy W/rem FB 13:59:34 CDT CPT-31436 Postop F/U Visit 13:59:29 CDT CPT-28470 Abd single AP View - XRAY USE ONLY 13:19:56 CDT CPT-77137 Abd single AP View - XRAY USE ONLY 11:48:17 CDT CPT-76981 Venipuncture Draw Fee 11:25:49 CDT
--- OUTSIDE RECORDS SUMMARY | 2019-07-19 22:57 | XMS REPORT | Clinical Summary ---
Author Author Admin, Kendra Flowers [employer] Address Unknown Phone Unavailable Allergies, Adverse Reactions, [...] tab by mouth daily CANAGLIFLOZIN- METFORMIN HCL 14659890712 Active Thu Reese MD Active ACID CONTROLLER 10 MG ORAL TABLET 2 tabs by mouth daily FAMOTIDINE 30165553950 No Longer Active Thu Reese MD Acti ve VIIBRYD 40 MG ORAL TABLET 1 tab by mouth daily VILAZODONE HCL 22907098480 No Longer Active Thu Reese MD Acti ve IRBESARTAN-HYDROCHLOROTHIAZIDE 150-12.5 MG ORAL TABLET 1 tab by mouth daily IRBESARTAN-HYDROCHLOROTHIAZIDE 06330739660 Active Thu Reese MD Active AMLODIPINE BESYLATE 5 MG ORAL TABLET 1 tablet by mouth daily AMLODIPINE BESYLATE 74800633832 Active Thu Reese MD A ctive ALEVE 220 MG ORAL TABLET NAPROXEN SODIU M 77273984777 No Longer Active Thu Reese MD Active SIMVASTATIN 40 MG ORAL TABLET 1 tab daily at bedtime 02/14 SIMVASTATIN 37188928695 No Longer Active Thu Reese MD Active PROZAC 40 MG ORAL CAPSULE take one cap po daily FLUOXETINE HCL 58416834033 No Longer Active Thu Reese MD Acti ve DICLOFENAC SODIUM 75 MG ORAL TABLET DELAYED RELEASE Take one by mouth daily DICLOFENAC SODIUM 87349387217 No Longer Active Thu Reese MD Active ULTRAM 50 MG ORAL TABLET 1 tab po tid prn pain TRAMADOL HCL 02789533385 No Longer Active Thu Reese MD Acti ve COZAAR 50 MG ORAL TABLET take one tab po daily LOSARTAN POTASSIUM 18149843904 No Longer Active Thu Reese MD Acti ve MEDROL 4 MG ORAL TABLET THERAPY PACK take as directed METHYLPREDNISOLONE 92592876502 No Longer Active Thu Reese MD Active ZITHROMAX Z-EUNICE 250 MG ORAL TABLET take as directed 20 19/02/11 AZITHROMYCIN 11236851678 No Longer Active Thu Reese MD Acti ve BYSTOLIC 5 MG ORAL TABLET take on tab po daily NEBIVOLOL HCL 13199771153 No Longer Active Vero GABRIEL Active LISINOPRIL 10 MG ORAL TABLET take one tab po daily 201 07/14/06 LISINOPRIL 75368490035 No Longer Active Vero GABRIEL Active LISINOPRIL 10 MG ORAL TABLET take one tab po daily 201 07/14/06 LISINOPRIL 10 MG ORAL TABLET 259822 LISINOPRIL Inactive BYSTOLIC 5 MG ORAL TABLET take on tab po daily BYSTOLIC 5 MG ORAL TABLET NEBIVOLOL HCL Inactive ZITHROMAX Z-EUNICE 250 MG ORAL TABLET take as directed 19/02/11 ZITHROMAX Z-EUNICE 250 MG ORAL TABLET 449080 AZITHROMYCIN Inact eriberto MEDROL 4 MG ORAL TABLET THERAPY PACK take as directed MEDROL 4 MG ORAL TABLET THERAPY PACK 475310 METHYLPREDNISOLONE [place] ctive COZAAR 50 MG ORAL TABLET take one tab po daily COZAAR 50 MG ORAL TABLET 359864 LOSARTAN POTASSIUM Inactive ULTRAM 50 MG ORAL TABLET 1 tab po tid prn pain ULTRAM 50 MG ORAL TABLET 835252 TRAMADOL HCL Inactive DICLOFENAC SODIUM 75 MG ORAL TABLET DELAYED RELEASE Take one by mouth daily DICLOFENAC SODIUM 75 MG ORAL TABLET HALIMA YED RELEASE 324543 DICLOFENAC SODIUM Inactive PROZAC 40 MG ORAL CAPSULE take one cap po daily PROZAC 40 MG ORAL CAPSULE 903597 FLUOXETINE HCL Inactive SIMVASTATIN 40 MG ORAL TABLET 1 tab daily at bedtime 2 SIMVASTATIN 40 MG ORAL TABLET 19810507 SIMVASTATIN Inactive ALEVE 220 MG ORAL TABLET ALEVE 220 MG O RAL TABLET 202095 NAPROXEN SODIUM Inactive VIIBRYD 40 MG ORAL TABLET 1 tab by mouth daily VIIBRYD 40 MG ORAL TABLET VILAZODONE HCL Inactive ACID CONTROLLER 10 MG ORAL TABLET 2 tabs by mouth daily ACID CONTROLLER 10 MG ORAL TABLET 744800 FAMOTIDINE Inacti ve Advance Directives Directive Description [...] negative Encounters Code Encounter Date Provider Facility CPT-60775 Level 3 Est. 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 Patient 09:53:46 CDT Vero Dunbar [facility] CPT-09258 Level 3 Est. Patient 09:28:28 CDT Vero Dunbar [facility] CPT-43617 Level 3 New Patient 11:25:49 CDT Vero Dunbar [facility] Procedures Code Procedure Name Date Entry Date Standard Desc ription CPT-49620 Abdomen, 1 view 09:47:14 CLOUD PHYSICIST CPT-91165 Cystoscopy W/rem FB 13:59:34 CDT CPT-82109 Postop F/U Visit 13:59:29 CDT CPT-82230 Abd single AP View - XRAY USE ONLY 13:19:56 CDT CPT-04310 Abd single AP View - XRAY USE ONLY 11:48:17 CDT CPT-19727 Venipuncture Draw Fee 11:25:49 CDT
--- OUTSIDE RECORDS SUMMARY | 2019-07-19 22:57 | XMS REPORT | Clinical Summary ---
Author Author Admin, Kendra Flowers [facility] Address Unknown Phone Unavailable Allergies, Adverse Reactions, Alerts Allergy Name Reaction Description Start Date Severity Status Pr ovider No Known Allergies Edna Davis RN Conditions or Problems Problem Name Problem Code [...] Active Thu alvarez MD Calculus of kidney Medication List Medication Instructions Start Date Stop Date Generic Name [facility] Status Provider Patient Instruction IRBESARTAN-HYDROCHLOROTHIAZIDE 150-12.5 MG ORAL TABS 1 tab b y mouth daily IRBESARTAN-HYDROCHLOROTHIAZIDE 64391521075 Active Thu Reese MD Active AMLODIPINE BESYLATE 5 MG TABS 1 tablet by mouth daily AMLODIPINE BESYLATE 72700520157 Active Thu Reese MD Active VIIBRYD 40 MG ORAL TABS 1 tab by mouth daily LAZODONE HCL 97607915719 Active Thu Reese MD Active ACID CONTROLLER 10 MG ORAL TABS 2 tabs by mouth daily FAMOTIDINE 12070347630 Active Thu Reese MD Active ALEVE 220 MG TAB NAPROXEN SODIUM 33156278224 No Longer Active Thu Reese MD Active SIMVASTATIN 40 MG TABS 1 tab daily at bedtime S IMVASTATIN 48427660995 No Longer Active Thu Reese MD Active PROZAC 40 MG CAPS take one cap po daily FLUOXET INE HCL 62240744347 No Longer Active Thu Reese MD Active DICLOFENAC SODIUM 75 MG TBEC Take one by mouth daily 2 DICLOFENAC SODIUM 70608175104 No Longer Active Thu Reese MD Active ULTRAM 50 MG TABS 1 tab po tid prn pain TRAMADO L HCL 55892430865 No Longer Active Thu Reese MD Active COZAAR 50 MG TABS take one tab po daily L OSARTAN POTASSIUM 56996559962 No Longer Active Thu Reese MD Acti ve MEDROL (EUNICE) 4 MG TABS take as directed M ETHYLPREDNISOLONE 07684659451 No Longer Active Thu Reese MD Acti ve ZITHROMAX Z-EUNICE 250 MG TABS take as directed AZ ITHROMYCIN 90844754085 No Longer Active Thu Reese MD Active BYSTOLIC 5 MG TABS take on tab po daily NEBIVOL OL HCL 85816904008 No Longer Active Vero Dunbar PA Active LISINOPRIL 10 MG TABS take one tab po daily LIS INOPRIL 00899345168 No Longer Active Vero Dunbar PA Active LISINOPRIL 10 MG TABS take one tab po daily LISINOPRIL 10 MG TABS 846393 LISINOPRIL Inactive BYSTOLIC 5 MG TABS take on tab po daily B YSTOLIC 5 MG TABS NEBIVOLOL HCL Inactive ZITHROMAX Z-EUNICE 250 MG TABS take as directed 1 ZITHROMAX Z- EUNICE 250 MG TABS 2107640 AZITHROMYCIN Inactive MEDROL (EUNICE) 4 MG TABS take as directed M EDROL (EUNICE) 4 MG TABS 350715 METHYLPREDNISOLONE Inactive COZAAR 50 MG TABS take one tab po daily COZAAR 50 MG TABS 837584 LOSARTAN POTASSIUM Inactive ULTRAM 50 MG TABS 1 tab po tid prn pain ULTRAM 50 MG TABS 492804 TRAMADOL HCL Inactive DICLOFENAC SODIUM 75 MG TBEC Take one by mouth daily 2 DICLOFENAC SODIUM 75 MG TBEC 487076 DICLOFENAC SODIUM Inactive PROZAC 40 MG CAPS take one cap po daily PROZAC 40 MG CAPS 681352 FLUOXETINE HCL Inactive SIMVASTATIN 40 MG TABS 1 tab daily at bedtime SIMVASTATIN 40 MG TABS 979912 SIMVASTATIN Inactive ALEVE 220 MG TAB ALEVE 220 MG TAB 460953 NAP ROXEN SODIUM Inactive Advance Directives Directive Description Start Date PERMISSION TO SHARE Encounters Code Encounter Date Provider Facility CPT-09376 Level 4 New Patient 17:45:36 CDT Thu mojica MD [facility] CPT-58342 Level 3 Est. Patient 09:53:46 CDT Vero Dunbar [facility] CPT-00341 Level 3 Est. Patient 09:28:28 CDT Vero GABRIEL [facility] [place] CPT-66589 Level 3 New Patient 11:25:49 CDT Vero GABRIEL [facility] [place] Procedures Code Procedure Name Date Entry Date Standard Desc ription CPT-52116 Abd single AP View - XRAY USE ONLY 11:48:17 CDT CPT-44865 Venipuncture Draw Fee 11:25:49 CDT
--- OUTSIDE RECORDS SUMMARY | 2019-07-19 22:57 | XMS REPORT | Clinical Summary ---
Author Author Admin, Kendra Flowers [employer] Address Unknown Phone Unavailable Allergies, Adverse Reactions, [...] tab by mouth daily CANAGLIFLOZIN- METFORMIN HCL 54174229779 Active Thu Reese MD Active ACID CONTROLLER 10 MG ORAL TABLET 2 tabs by mouth daily FAMOTIDINE 13796676878 No Longer Active Thu Reese MD Acti ve VIIBRYD 40 MG ORAL TABLET 1 tab by mouth daily VILAZODONE HCL 98493317652 No Longer Active Thu Reese MD Acti ve IRBESARTAN-HYDROCHLOROTHIAZIDE 150-12.5 MG ORAL TABLET 1 tab by mouth daily IRBESARTAN-HYDROCHLOROTHIAZIDE 16224210114 Active Thu Reese MD Active AMLODIPINE BESYLATE 5 MG ORAL TABLET 1 tablet by mouth daily AMLODIPINE BESYLATE 71601911033 Active Thu Reese MD A ctive ALEVE 220 MG ORAL TABLET NAPROXEN SODIU M 78350091824 No Longer Active Thu Reese MD Active SIMVASTATIN 40 MG ORAL TABLET 1 tab daily at bedtime 02/14 SIMVASTATIN 03451935859 No Longer Active Thu Reese MD Active PROZAC 40 MG ORAL CAPSULE take one cap po daily FLUOXETINE HCL 94386093895 No Longer Active Thu Reese MD Acti ve DICLOFENAC SODIUM 75 MG ORAL TABLET DELAYED RELEASE Take one by mouth daily DICLOFENAC SODIUM 92701450851 No Longer Active Thu Reese MD Active ULTRAM 50 MG ORAL TABLET 1 tab po tid prn pain TRAMADOL HCL 97732497196 No Longer Active Thu Reese MD Acti ve COZAAR 50 MG ORAL TABLET take one tab po daily LOSARTAN POTASSIUM 61620265684 No Longer Active Thu Reese MD Acti ve MEDROL 4 MG ORAL TABLET THERAPY PACK take as directed METHYLPREDNISOLONE 13448411300 No Longer Active Thu Reese MD Active ZITHROMAX Z-EUNICE 250 MG ORAL TABLET take as directed 20 19/02/11 AZITHROMYCIN 14949617832 No Longer Active Thu Reese MD Acti ve BYSTOLIC 5 MG ORAL TABLET take on tab po daily NEBIVOLOL HCL 90588025205 No Longer Active Vero Dunbar PA Active LISINOPRIL 10 MG ORAL TABLET take one tab po daily 201 07/14/06 LISINOPRIL 03027951670 No Longer Active Vero Dunbar PA Active LISINOPRIL 10 MG ORAL TABLET take one tab po daily 201 07/14/06 LISINOPRIL 10 MG ORAL TABLET 493195 LISINOPRIL Inactive BYSTOLIC 5 MG ORAL TABLET take on tab po daily BYSTOLIC 5 MG ORAL TABLET NEBIVOLOL HCL Inactive ZITHROMAX Z-EUNICE 250 MG ORAL TABLET take as directed 19/02/11 ZITHROMAX Z-EUNICE 250 MG ORAL TABLET 737952 AZITHROMYCIN Inact eriberto MEDROL 4 MG ORAL TABLET THERAPY PACK take as directed MEDROL 4 MG ORAL TABLET THERAPY PACK 872616 METHYLPREDNISOLONE Shaina ctive COZAAR 50 MG ORAL TABLET take one tab po daily COZAAR 50 MG ORAL TABLET 955512 LOSARTAN POTASSIUM Inactive ULTRAM 50 MG ORAL TABLET 1 tab po tid prn pain ULTRAM 50 MG ORAL TABLET 839208 TRAMADOL HCL Inactive DICLOFENAC SODIUM 75 MG ORAL TABLET DELAYED RELEASE Take one by mouth daily DICLOFENAC SODIUM 75 MG ORAL TABLET HALIMA YED RELEASE 474413 DICLOFENAC SODIUM Inactive PROZAC 40 MG ORAL CAPSULE take one cap po daily PROZAC 40 MG ORAL CAPSULE 968621 FLUOXETINE HCL Inactive SIMVASTATIN 40 MG ORAL TABLET 1 tab daily at bedtime 2 SIMVASTATIN 40 MG ORAL TABLET 19810507 SIMVASTATIN Inactive ALEVE 220 MG ORAL TABLET ALEVE 220 MG O RAL TABLET 537518 NAPROXEN SODIUM Inactive VIIBRYD 40 MG ORAL TABLET 1 tab by mouth daily VIIBRYD 40 MG ORAL TABLET VILAZODONE HCL Inactive ACID CONTROLLER 10 MG ORAL TABLET 2 tabs by mouth daily ACID CONTROLLER 10 MG ORAL TABLET 328765 FAMOTIDINE Inacti ve Advance Directives Directive Description [...] negative Encounters Code Encounter Date Provider Facility CPT-14837 Level 3 Est. 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 Patient 09:53:46 CDT Vero Dunbar [facility] CPT-16681 Level 3 Est. Patient 09:28:28 CDT Vero Dunbar [facility] CPT-82452 Level 3 New Patient 11:25:49 CDT Vero Dunbar [facility] Procedures Code Procedure Name Date Entry Date Standard Desc ription CPT-36028 Abdomen, 1 view 09:47:14 RADAR SIGNAL PROCESSING ENGINEER CPT-40090 Cystoscopy W/rem FB 13:59:34 CDT CPT-17865 Postop F/U Visit 13:59:29 CDT CPT-34688 Abd single AP View - XRAY USE ONLY 13:19:56 CDT CPT-10436 Abd single AP View - XRAY USE ONLY 11:48:17 CDT CPT-86549 Venipuncture Draw Fee 11:25:49 CDT
--- OUTSIDE RECORDS SUMMARY | 2019-07-19 22:57 | XMS REPORT | Clinical Summary ---
Author Author Admin, Kendra Flowers [employer] Address Unknown Phone Unavailable Allergies, Adverse Reactions, [...] tab by mouth daily CANAGLIFLOZIN- METFORMIN HCL 75190560365 Active Thu Reese MD Active ACID CONTROLLER 10 MG ORAL TABLET 2 tabs by mouth daily FAMOTIDINE 71819644259 No Longer Active Thu Reese MD Acti ve VIIBRYD 40 MG ORAL TABLET 1 tab by mouth daily VILAZODONE HCL 44190098262 No Longer Active Thu Reese MD Acti ve IRBESARTAN-HYDROCHLOROTHIAZIDE 150-12.5 MG ORAL TABLET 1 tab by mouth daily IRBESARTAN-HYDROCHLOROTHIAZIDE 79584104885 Active Thu Reese MD Active AMLODIPINE BESYLATE 5 MG ORAL TABLET 1 tablet by mouth daily AMLODIPINE BESYLATE 78945660457 Active Thu Reese MD A ctive ALEVE 220 MG ORAL TABLET NAPROXEN SODIU M 97167274841 No Longer Active Thu Reese MD Active SIMVASTATIN 40 MG ORAL TABLET 1 tab daily at bedtime 02/14 SIMVASTATIN 39430712103 No Longer Active Thu Reese MD Active PROZAC 40 MG ORAL CAPSULE take one cap po daily FLUOXETINE HCL 95955612279 No Longer Active Thu Reese MD Acti ve DICLOFENAC SODIUM 75 MG ORAL TABLET DELAYED RELEASE Take one by mouth daily DICLOFENAC SODIUM 55407696754 No Longer Active Thu Reese MD Active ULTRAM 50 MG ORAL TABLET 1 tab po tid prn pain TRAMADOL HCL 53221235383 No Longer Active Thu Reese MD Acti ve COZAAR 50 MG ORAL TABLET take one tab po daily LOSARTAN POTASSIUM 69106624401 No Longer Active Thu Reese MD Acti ve MEDROL 4 MG ORAL TABLET THERAPY PACK take as directed METHYLPREDNISOLONE 34890410079 No Longer Active Thu Reese MD Active ZITHROMAX Z-EUNICE 250 MG ORAL TABLET take as directed 20 19/02/11 AZITHROMYCIN 48180314012 No Longer Active Thu Reese MD Acti ve BYSTOLIC 5 MG ORAL TABLET take on tab po daily NEBIVOLOL HCL 07939773423 No Longer Active Vero GABRIEL Active LISINOPRIL 10 MG ORAL TABLET take one tab po daily 201 07/14/06 LISINOPRIL 62934861171 No Longer Active Vero GABRIEL Active LISINOPRIL 10 MG ORAL TABLET take one tab po daily 201 07/14/06 LISINOPRIL 10 MG ORAL TABLET 652022 LISINOPRIL Inactive BYSTOLIC 5 MG ORAL TABLET take on tab po daily BYSTOLIC 5 MG ORAL TABLET NEBIVOLOL HCL Inactive ZITHROMAX Z-EUNICE 250 MG ORAL TABLET take as directed 19/02/11 ZITHROMAX Z-EUNICE 250 MG ORAL TABLET 253924 AZITHROMYCIN Inact eriberto MEDROL 4 MG ORAL TABLET THERAPY PACK take as directed MEDROL 4 MG ORAL TABLET THERAPY PACK 875832 METHYLPREDNISOLONE Shaina ctive COZAAR 50 MG ORAL TABLET take one tab po daily COZAAR 50 MG ORAL TABLET 138616 LOSARTAN POTASSIUM Inactive ULTRAM 50 MG ORAL TABLET 1 tab po tid prn pain ULTRAM 50 MG ORAL TABLET 045008 TRAMADOL HCL Inactive DICLOFENAC SODIUM 75 MG ORAL TABLET DELAYED RELEASE Take one by mouth daily DICLOFENAC SODIUM 75 MG ORAL TABLET HALIMA YED RELEASE 208699 DICLOFENAC SODIUM Inactive PROZAC 40 MG ORAL CAPSULE take one cap po daily PROZAC 40 MG ORAL CAPSULE 065780 FLUOXETINE HCL Inactive SIMVASTATIN 40 MG ORAL TABLET 1 tab daily at bedtime 2 SIMVASTATIN 40 MG ORAL TABLET 19810507 SIMVASTATIN Inactive ALEVE 220 MG ORAL TABLET ALEVE 220 MG O RAL TABLET 552049 NAPROXEN SODIUM Inactive VIIBRYD 40 MG ORAL TABLET 1 tab by mouth daily VIIBRYD 40 MG ORAL TABLET VILAZODONE HCL Inactive ACID CONTROLLER 10 MG ORAL TABLET 2 tabs by mouth daily ACID CONTROLLER 10 MG ORAL TABLET 738096 FAMOTIDINE Inacti ve Advance Directives Directive Description Start Date PERMISSION TO SHARE Encounters Code Encounter Date Provider Facility CPT-20694 Level 3 Est. 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 Patient 09:53:46 CDT Vero [facility] CPT-67168 Level 3 Est. Patient 09:28:28 CDT Vero [facility] CPT-39257 Level 3 New Patient 11:25:49 CDT [facility] [place] Procedures Code Procedure Name Date Entry Date Standard Desc ription CPT-07266 Abdomen, 1 view 09:47:14 SUPERVISOR HARDBOARD CPT-73004 Cystoscopy W/rem FB 13:59:34 CDT CPT-95404 Postop F/U Visit 13:59:29 CDT CPT-40060 Abd single AP View - XRAY USE ONLY 13:19:56 CDT CPT-43988 Abd single AP View - XRAY USE ONLY 11:48:17 CDT CPT-01188 Venipuncture Draw Fee 11:25:49 CDT
--- OUTSIDE RECORDS SUMMARY | 2019-07-19 22:57 | XMS REPORT | Clinical Summary ---
Author Author Admin, Kendra Flowers [employer] Address Unknown Phone Unavailable Allergies, Adverse Reactions, [...] elsewhere classified COUGH 786.2 Active Vero Pool NERY Cough Flank pain, right 789.09 Active Thu Reese MD Abdominal pain, other specified site; multiple sites Renal calculus, right 592.0 Active Thu alvarez MD Calculus of kidney Medication List Medication Instructions Start Date Stop Date Generic Name ND Status Provider Patient Instruction IRBESARTAN-HYDROCHLOROTHIAZIDE 150-12.5 MG ORAL TABS 1 tab b y mouth daily IRBESARTAN-HYDROCHLOROTHIAZIDE 60776363120 Active Thu Reese MD Active AMLODIPINE BESYLATE 5 MG TABS 1 tablet by mouth daily AMLODIPINE BESYLATE 43745907291 Active Thu Reese MD Active VIIBRYD 40 MG ORAL TABS 1 tab by mouth daily LAZODONE HCL 30451667738 Active Thu Reese MD Active ACID CONTROLLER 10 MG ORAL TABS 2 tabs by mouth daily FAMOTIDINE 54603729782 Active Thu Reese MD Active ALEVE 220 MG TAB NAPROXEN SODIUM 49611612000 No Longer Active Thu Reese MD Active SIMVASTATIN 40 MG TABS 1 tab daily at bedtime S IMVASTATIN 83242071846 No Longer Active Thu Reese MD Active PROZAC 40 MG CAPS take one cap po daily FLUOXET INE HCL 47782213251 No Longer Active Thu Reese MD Active DICLOFENAC SODIUM 75 MG TBEC Take one by mouth daily 2 DICLOFENAC SODIUM 07409899708 No Longer Active Thu Reese MD Active ULTRAM 50 MG TABS 1 tab po tid prn pain TRAMADO L HCL 88743240735 No Longer Active Thu Reese MD Active COZAAR 50 MG TABS take one tab po daily L OSARTAN POTASSIUM 14557032448 No Longer Active Thu Reese MD Acti ve MEDROL (EUNICE) 4 MG TABS take as directed M ETHYLPREDNISOLONE 88349603348 No Longer Active Thu Reese MD Acti ve ZITHROMAX Z-EUNICE 250 MG TABS take as directed AZ ITHROMYCIN 44352620607 No Longer Active Thu Reese MD Active BYSTOLIC 5 MG TABS take on tab po daily NEBIVOL OL HCL 36778328538 No Longer Active Vero Pool PA Active LISINOPRIL 10 MG TABS take one tab po daily LIS INOPRIL 96771382951 No Longer Active Vero Pool PA Active LISINOPRIL 10 MG TABS take one tab po daily LISINOPRIL 10 MG TABS 098587 LISINOPRIL Inactive BYSTOLIC 5 MG TABS take on tab po daily B YSTOLIC 5 MG TABS NEBIVOLOL HCL Inactive ZITHROMAX Z-EUNICE 250 MG TABS take as directed 1 ZITHROMAX Z- EUNICE 250 MG TABS 6748732 AZITHROMYCIN Inactive MEDROL (EUNICE) 4 MG TABS take as directed M EDROL (EUNICE) 4 MG TABS 081070 METHYLPREDNISOLONE Inactive COZAAR 50 MG TABS take one tab po daily COZAAR 50 MG TABS 472701 LOSARTAN POTASSIUM Inactive ULTRAM 50 MG TABS 1 tab po tid prn pain ULTRAM 50 MG TABS 694295 TRAMADOL HCL Inactive DICLOFENAC SODIUM 75 MG TBEC Take one by mouth daily 2 DICLOFENAC SODIUM 75 MG TBEC 082559 DICLOFENAC SODIUM Inactive PROZAC 40 MG CAPS take one cap po daily PROZAC 40 MG CAPS 944606 FLUOXETINE HCL Inactive SIMVASTATIN 40 MG TABS 1 tab daily at bedtime SIMVASTATIN 40 MG TABS 024876 SIMVASTATIN Inactive ALEVE 220 MG TAB ALEVE 220 MG TAB 948603 NAP ROXEN SODIUM Inactive Advance Directives Directive Description Start Date PERMISSION TO SHARE Vital Signs Date Name Value Unit Range Description blood pressure, diastolic - 8462-4 85 mm[Hg] BP chaudhary blood pressure, systolic - 8480-6 143 mm[Hg] BP sys pulse rate E&M - 8867-4 103 /min H eart rate temperature E&M 97.9 [degF] Body temp erature weight E&M - 3141-9 309.5 [lb_av] Weigh t Measured blood pressure, diastolic - 8462-4 70 mm[Hg] BP chauhdary blood pressure, systolic - 8480-6 124 mm[Hg] BP sys pulse rate E&M - 8867-4 91 /min H eart rate temperature E&M 97.4 [degF] Body temp erature weight E&M - 3141-9 304.5 [lb_av] Weigh t Measured Diagnostic Results Date Name Value Unit Range Description Office Visit: Right flank pain/ kidney s tone - Chemistry RBC, urine, dipstick 3+ protein, total urine random negative mg/dL Office Visit: Right flank pain/ kidney s tone - Urinalysis pH, urine, semiquantitative 5 specific gravity, urine 1.010 urinalysis, routine Clean Catch culture status No ketones, urine, by test strip negative bilirubin, urine negative glucose, urine, semiquantitative negative urine color yellow appearance, urine clear leukocyte esterase, urine, by dipstick negative nitrite, urine, semiquantitative negative urobilinogen, urine, semiquantitative (dipstick) 0.2 protein, urine, semiquantitative (dipstick) negative Encounters Code Encounter Date Provider Facility CPT-64064 Level 4 New Patient 17:45:36 CDT Thu mojica MD [facility] CPT-09936 Level 3 Est. Patient 09:53:46 CDT [facility] CPT-77858 Level 3 Est. Patient 09:28:28 CDT [facility] CPT-17633 Level 3 New Patient 11:25:49 CDT Vero Dunbar [facility] [place] Procedures Code Procedure Name Date Entry Date Standard Desc ription CPT-09210 Cystoscopy W/rem FB 13:59:34 CDT CPT-22573 Postop F/U Visit 13:59:29 CDT CPT-07363 Abd single AP View - XRAY USE ONLY 13:19:56 CDT CPT-23769 Abd single AP View - XRAY USE ONLY 11:48:17 CDT CPT-10345 Venipuncture Draw Fee 11:25:49 CDT
--- OUTSIDE RECORDS SUMMARY | 2019-07-19 22:57 | XMS REPORT | Clinical Summary ---
Author Author Admin, Kendra Flowers [employer] Address Unknown Phone Unavailable Allergies, Adverse Reactions, [...] Instructions Start Date Stop Date Generic Name [facility] Status Provider Patient Instruction IRBESARTAN-HYDROCHLOROTHIAZIDE 150-12.5 MG ORAL TABLET 1 tab by mouth daily IRBESARTAN-HYDROCHLOROTHIAZIDE 27516692901 Active Thu Reese MD Active AMLODIPINE BESYLATE 5 MG ORAL TABLET 1 tablet by mouth daily AMLODIPINE BESYLATE 10905297751 Active Thu Reese MD A ctive VIIBRYD 40 MG ORAL TABLET 1 tab by mouth daily VILAZODONE HCL 92919125413 Active Thu Reese MD Active ACID CONTROLLER 10 MG ORAL TABLET 2 tabs by mouth daily FAMOTIDINE 94572473985 Active Thu Reese MD Active ALEVE 220 MG ORAL TABLET NAPROXEN SODIU M 82568966607 No Longer Active Thu Reese MD Active SIMVASTATIN 40 MG ORAL TABLET 1 tab daily at bedtime 02/14 SIMVASTATIN 72746032299 No Longer Active Thu Reese MD Active PROZAC 40 MG ORAL CAPSULE take one cap po daily FLUOXETINE HCL 59612022000 No Longer Active Thu Reese MD Acti ve DICLOFENAC SODIUM 75 MG ORAL TABLET DELAYED RELEASE Take one by mouth daily DICLOFENAC SODIUM 20358448330 No Longer Active Thu Reese MD Active ULTRAM 50 MG ORAL TABLET 1 tab po tid prn pain TRAMADOL HCL 02249532909 No Longer Active Thu Reese MD Acti ve COZAAR 50 MG ORAL TABLET take one tab po daily LOSARTAN POTASSIUM 08035061572 No Longer Active Thu Reese MD Acti ve MEDROL 4 MG ORAL TABLET THERAPY PACK take as directed METHYLPREDNISOLONE 74684764119 No Longer Active Thu Reese MD Active ZITHROMAX Z-EUNICE 250 MG ORAL TABLET take as directed 19/02/11 AZITHROMYCIN 63469843019 No Longer Active Thu Reese MD Acti ve BYSTOLIC 5 MG ORAL TABLET take on tab po daily NEBIVOLOL HCL 43156172300 No Longer Active Vero GABRIEL Active LISINOPRIL 10 MG ORAL TABLET take one tab po daily 201 07/14/06 LISINOPRIL 92291212926 No Longer Active Vero GABRIEL Active LISINOPRIL 10 MG ORAL TABLET take one tab po daily 201 07/14/06 LISINOPRIL 10 MG ORAL TABLET 033245 LISINOPRIL Inactive BYSTOLIC 5 MG ORAL TABLET take on tab po daily BYSTOLIC 5 MG ORAL TABLET NEBIVOLOL HCL Inactive ZITHROMAX Z-EUNICE 250 MG ORAL TABLET take as directed 19/02/11 ZITHROMAX Z-EUNICE 250 MG ORAL TABLET 800249 AZITHROMYCIN Inact eriberto MEDROL 4 MG ORAL TABLET THERAPY PACK take as directed MEDROL 4 MG ORAL TABLET THERAPY PACK 038017 METHYLPREDNISOLONE Shaina ctive COZAAR 50 MG ORAL TABLET take one tab po daily COZAAR 50 MG ORAL TABLET 866405 LOSARTAN POTASSIUM Inactive ULTRAM 50 MG ORAL TABLET 1 tab po tid prn pain ULTRAM 50 MG ORAL TABLET 842110 TRAMADOL HCL Inactive DICLOFENAC SODIUM 75 MG ORAL TABLET DELAYED RELEASE Take one by mouth daily DICLOFENAC SODIUM 75 MG ORAL TABLET HALIMA YED RELEASE 335836 DICLOFENAC SODIUM Inactive PROZAC 40 MG ORAL CAPSULE take one cap po daily PROZAC 40 MG ORAL CAPSULE 805352 FLUOXETINE HCL Inactive SIMVASTATIN 40 MG ORAL TABLET 1 tab daily at bedtime 2 SIMVASTATIN 40 MG ORAL TABLET 584197 SIMVASTATIN Inactive ALEVE 220 MG ORAL TABLET ALEVE 220 MG O RAL TABLET 282300 NAPROXEN SODIUM Inactive Advance Directives Directive Description Start Date PERMISSION TO SHARE Encounters Code Encounter Date Provider Facility CPT-65250 Level 4 New Patient 17:45:36 CDT Thu mojica MD [facility] CPT-94772 Level 3 Est. Patient 09:53:46 CDT Vero GABRIEL [facility] Eddie Hunter CPT-03123 Level 3 Est. 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
--- OUTSIDE RECORDS SUMMARY | 2019-07-19 22:57 | XMS REPORT | Clinical Summary ---
Author Author Admin, Kendra Flowers [employer] Address Unknown Phone Unavailable Allergies, Adverse Reactions, [...] Instructions Start Date Stop Date Generic Name [facility] Status Provider Patient Instruction IRBESARTAN-HYDROCHLOROTHIAZIDE 150-12.5 MG ORAL TABLET 1 tab by mouth daily IRBESARTAN-HYDROCHLOROTHIAZIDE 52392193243 Active Thu Reese MD Active AMLODIPINE BESYLATE 5 MG ORAL TABLET 1 tablet by mouth daily AMLODIPINE BESYLATE 91610819696 Active Thu Reese MD A ctive VIIBRYD 40 MG ORAL TABLET 1 tab by mouth daily VILAZODONE HCL 64086949176 Active Thu Reese MD Active ACID CONTROLLER 10 MG ORAL TABLET 2 tabs by mouth daily FAMOTIDINE 60040952048 Active Thu Reese MD Active ALEVE 220 MG ORAL TABLET NAPROXEN SODIU M 22248568077 No Longer Active Thu Reese MD Active SIMVASTATIN 40 MG ORAL TABLET 1 tab daily at bedtime 02/14 SIMVASTATIN 07496779916 No Longer Active Thu Reese MD Active PROZAC 40 MG ORAL CAPSULE take one cap po daily FLUOXETINE HCL 80962106515 No Longer Active Thu Reese MD Acti ve DICLOFENAC SODIUM 75 MG ORAL TABLET DELAYED RELEASE Take one by mouth daily DICLOFENAC SODIUM 33041697030 No Longer Active Thu Reese MD Active ULTRAM 50 MG ORAL TABLET 1 tab po tid prn pain TRAMADOL HCL 24442735382 No Longer Active Thu Reese MD Acti ve COZAAR 50 MG ORAL TABLET take one tab po daily LOSARTAN POTASSIUM 95053587871 No Longer Active Thu Reese MD Acti ve MEDROL 4 MG ORAL TABLET THERAPY PACK take as directed METHYLPREDNISOLONE 82341923305 No Longer Active Thu Reese MD Active ZITHROMAX Z-EUNICE 250 MG ORAL TABLET take as directed 19/02/11 AZITHROMYCIN 10922454145 No Longer Active Thu Reese MD Acti ve BYSTOLIC 5 MG ORAL TABLET take on tab po daily NEBIVOLOL HCL 72734744913 No Longer Active Vero GABRIEL Active LISINOPRIL 10 MG ORAL TABLET take one tab po daily 201 07/14/06 LISINOPRIL 09746961864 No Longer Active Vero GABRIEL Active LISINOPRIL 10 MG ORAL TABLET take one tab po daily 201 07/14/06 LISINOPRIL 10 MG ORAL TABLET 554017 LISINOPRIL Inactive BYSTOLIC 5 MG ORAL TABLET take on tab po daily BYSTOLIC 5 MG ORAL TABLET NEBIVOLOL HCL Inactive ZITHROMAX Z-EUNICE 250 MG ORAL TABLET take as directed 19/02/11 ZITHROMAX Z-EUNICE 250 MG ORAL TABLET 946106 AZITHROMYCIN Inact eriberto MEDROL 4 MG ORAL TABLET THERAPY PACK take as directed MEDROL 4 MG ORAL TABLET THERAPY PACK 513730 METHYLPREDNISOLONE Shaina ctive COZAAR 50 MG ORAL TABLET take one tab po daily COZAAR 50 MG ORAL TABLET 059053 LOSARTAN POTASSIUM Inactive ULTRAM 50 MG ORAL TABLET 1 tab po tid prn pain ULTRAM 50 MG ORAL TABLET 764100 TRAMADOL HCL Inactive DICLOFENAC SODIUM 75 MG ORAL TABLET DELAYED RELEASE Take one by mouth daily DICLOFENAC SODIUM 75 MG ORAL TABLET HALIMA YED RELEASE 740770 DICLOFENAC SODIUM Inactive PROZAC 40 MG ORAL CAPSULE take one cap po daily PROZAC 40 MG ORAL CAPSULE 972437 FLUOXETINE HCL Inactive SIMVASTATIN 40 MG ORAL TABLET 1 tab daily at bedtime 2 SIMVASTATIN 40 MG ORAL TABLET 591302 SIMVASTATIN Inactive ALEVE 220 MG ORAL TABLET ALEVE 220 MG O RAL TABLET 207595 NAPROXEN SODIUM Inactive Advance Directives Directive Description Start Date PERMISSION TO SHARE Encounters Code Encounter Date Provider Facility CPT-73814 Level 4 New Patient 17:45:36 CDT Thu mojica MD [facility] CPT-81961 Level 3 Est. Patient 09:53:46 CDT Vero GABRIEL [facility] Eddie Hunter CPT-40675 Level 3 Est. 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
--- OUTSIDE RECORDS SUMMARY | 2019-07-19 22:57 | XMS REPORT | Clinical Summary ---
Author Author Admin, Kendra Flowers Gauzy Address Unknown Phone Unavailable Allergies, Adverse Reactions, [...] 1 tab b y mouth daily IRBESARTAN-HYDROCHLOROTHIAZIDE 15817236186 Active Thu Reese MD Active AMLODIPINE BESYLATE 5 MG TABS 1 tablet by mouth daily AMLODIPINE BESYLATE 30248649149 Active Thu Reese MD Active VIIBRYD 40 MG ORAL TABS 1 tab by mouth daily LAZODONE HCL 73915667775 Active Thu Reese MD Active ACID CONTROLLER 10 MG ORAL TABS 2 tabs by mouth daily FAMOTIDINE 69550884082 Active Thu Reese MD Active ALEVE 220 MG TAB NAPROXEN SODIUM 75695578666 No Longer Active Thu Reese MD Active SIMVASTATIN 40 MG TABS 1 tab daily at bedtime S IMVASTATIN 51457463564 No Longer Active Thu Reese MD Active PROZAC 40 MG CAPS take one cap po daily FLUOXET INE HCL 42734268961 No Longer Active Thu Reese MD Active DICLOFENAC SODIUM 75 MG TBEC Take one by mouth daily 2 DICLOFENAC SODIUM 58495995060 No Longer Active Thu Reese MD Active ULTRAM 50 MG TABS 1 tab po tid prn pain TRAMADO L HCL 88153614675 No Longer Active Thu Reese MD Active COZAAR 50 MG TABS take one tab po daily L OSARTAN POTASSIUM 37906109581 No Longer Active Thu Reese MD Acti ve MEDROL (EUNICE) 4 MG TABS take as directed M ETHYLPREDNISOLONE 59259748346 No Longer Active Thu eRese MD Acti ve ZITHROMAX Z-EUNICE 250 MG TABS take as directed AZ ITHROMYCIN 65875802470 No Longer Active Thu Reese MD Active BYSTOLIC 5 MG TABS take on tab po daily NEBIVOL OL HCL 47599401954 No Longer Active Vero GABIREL Active LISINOPRIL 10 MG TABS take one tab po daily LIS INOPRIL 57580892173 No Longer Active Vero GABRIEL Active LISINOPRIL 10 MG TABS take one tab po daily LISINOPRIL 10 MG TABS 978891 LISINOPRIL Inactive BYSTOLIC 5 MG TABS take on tab po daily B YSTOLIC 5 MG TABS NEBIVOLOL HCL Inactive ZITHROMAX Z-EUNICE 250 MG TABS take as directed 1 ZITHROMAX Z- EUNICE 250 MG TABS 3199105 AZITHROMYCIN Inactive MEDROL (EUNICE) 4 MG TABS take as directed M EDROL (EUNICE) 4 MG TABS 817441 METHYLPREDNISOLONE Inactive COZAAR 50 MG TABS take one tab po daily COZAAR 50 MG TABS 301312 LOSARTAN POTASSIUM Inactive ULTRAM 50 MG TABS 1 tab po tid prn pain ULTRAM 50 MG TABS 616697 TRAMADOL HCL Inactive DICLOFENAC SODIUM 75 MG TBEC Take one by mouth daily 2 DICLOFENAC SODIUM 75 MG TBEC 406781 DICLOFENAC SODIUM Inactive PROZAC 40 MG CAPS take one cap po daily PROZAC 40 MG CAPS 122288 FLUOXETINE HCL Inactive SIMVASTATIN 40 MG TABS 1 tab daily at bedtime SIMVASTATIN 40 MG TABS 289810 SIMVASTATIN Inactive ALEVE 220 MG TAB ALEVE 220 MG TAB 097849 NAP ROXEN SODIUM Inactive Advance Directives Directive Description Start Date PERMISSION TO SHARE Encounters Code Encounter Date Provider Facility CPT-07438 Level 4 New Patient 17:45:36 CDT Thu mojica MD [facility] CPT-71790 Level 3 Est. Patient 09:53:46 CDT Vero GABRIEL [facility] CPT-56151 Level 3 Est. Patient 09:28:28 CDT [facility] CPT[facility]75737 Level 3 New Patient 11:25:49 CDT Vero GABRIEL [facility] [place] Procedures Code Procedure Name Date Entry Date Standard Desc ription CPT-15829 Cystoscopy W/rem FB 13:59:34 CDT CPT-16154 Postop F/U Visit 13:59:29 CDT CPT-91646 Abd single AP View - XRAY USE ONLY 13:19:56 CDT CPT-44163 Abd single AP View - XRAY USE ONLY 11:48:17 CDT CPT-51530 Venipuncture Draw Fee 11:25:49 CDT
--- OUTSIDE RECORDS SUMMARY | 2019-07-19 22:57 | XMS REPORT | Clinical Summary ---
Author Author Admin, Kendra Flowers [facility] Address Unknown Phone Unavailable Allergies, Adverse Reactions, Alerts Allergy Name Reaction Description Start Date Severity Status Pr ovider No Known Allergies Edna Davis RN Conditions or Problems Problem Name Problem Code Onset Date Status Entry Date Provider Comment Standard Description Annotate HYPERTENSION 401.9 Active Vero GABRIEL Uns pecified essential hypertension HYPERLIPIDEMIA 272.4 Active Vero Dunbar PA O ther and unspecified hyperlipidemia HYPERTENSION, BENIGN ESSENTIAL, UNCONTROLLED 401.1 Ac tive Vero Dunbar PA Benign essential hypertension HYPERLIPIDEMIA, MIXED 272.2 Active Vero Pool PA Mixed hyperlipidemia DEPRESSION, MILD, RECURRENT 296.31 Active Vero P ool PA Major depressive disorder, recurrent episode, mild degree FATIGUE, ACUTE 780.79 Active Vero GABRIEL Other malaise and fatigue DIVERTICULOSIS OF COLON 562.10 Active Vero Pool PA Diverticulosis of colon (without mention of hemorrhage) RENAL CALCULUS, RIGHT 592.0 Active Vero Dunbar PA Calculus of kidney TUBULOVILLOUS ADENOMA, COLON, 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 Vero GABRIEL Personal history of colonic polyps PULMONARY NODULE 518.89 Active Vero GABRIEL Other diseases of lung, not elsewhere classified COUGH 786.2 Active Vero GABRIEL Cough Medication List Medication Instructions Start Date Stop Date Generic Name NDC Status Provider Patient Instruction ZITHROMAX Z-EUNICE 250 MG TABS take as directed AZ ITHROMYCIN 01347549701 Active Vero GABRIEL Active MEDROL (EUNICE) 4 MG TABS take as directed METHYLP REDNISOLONE 59177795994 Active Vero Pool PA Active COZAAR 50 MG TABS take one tab po daily LOSARTA N POTASSIUM 19349373738 Active Vero Pool PA Active BYSTOLIC 5 MG TABS take on tab po daily NEBIVOL OL HCL 12807714754 No Longer Active Vero Pool PA Active PROZAC 40 MG CAPS take one cap po daily FLUOXETIN E HCL 74024412050 Active Vero Pool PA Active SIMVASTATIN 40 MG TABS 1 tab daily at bedtime SIMV ASTATIN 71931627548 Active Vero Pool PA Active ULTRAM 50 MG TABS 1 tab po tid prn pain TRAMADOL HCL 61338080952 Active Vero Pool PA Active LISINOPRIL 10 MG TABS take one tab po daily LIS INOPRIL 38506177076 No Longer Active Vero Pool PA Active DICLOFENAC SODIUM 75 MG TBEC Take one by mouth daily DICLOFENAC SODIUM 02599869284 Active Edna Davis RN Active ALEVE 220 MG TAB NAPROXEN SODIUM 72997729263 Active Vero Pool PA Active LISINOPRIL 10 MG TABS take one tab po daily LISINOPRIL 10 MG TABS 063227 LISINOPRIL Inactive BYSTOLIC 5 MG TABS take on tab po daily B YSTOLIC 5 MG TABS NEBIVOLOL HCL Inactive Advance Directives Directive Description Start Date PERMISSION TO SHARE Encounters Code Encounter Date Provider Facility CPT-60833 Level 3 Est. Patient 09:53:46 CDT Vero GABRIEL [facility] CPT-90990 Level 3 Est. Patient 09:28:28 CDT Vero GABRIEL [facility] CPT-05859 Level 3 New Patient 11:25:49 CDT Vero GABRIEL [facility] [place] Procedures Code Procedure Name Date Entry Date Standard Desc ription CPT-32472 Abd single AP View - XRAY USE ONLY 11:48:17 CDT CPT-48468 Venipuncture Draw Fee 11:25:49 CDT
--- OUTSIDE RECORDS SUMMARY | 2019-07-19 22:58 | XMS REPORT | Continuity of Care Document ---
Demographics Preferred Language Unknown Marital Status Unknown Restoration Affiliation Unknown Race Unknown Ethnic Group Unknown Author Organization Unknown Address Unknown Phone Unavailable Allergies Active Description Code Type Severity Reaction Onset Reported/Identified Relationship to Patient Clinical Status Yes No Known Allergies [id number] N/A N/A Yes No Known Medication Allergies Drug N/A N/A Yes No Known Allergies Drug Allerg y 07/23/2012 Yes No Known Drug Allergies Drug Allergy 07/23/2012 Yes No Known Food Allergies Food Allergy 07/23/2012 Yes No Known Drug Allergies [id number] Drug Allergy Unknown N/A 07/18/2019 Medications There is no data. Problems Date Dx Coded Attending Type Code Diagnosis Diagnosed By 07/25/2012 Skip Buckner MD Final 305.1 TOBACCO USE DISORDER 07/25/2012 Skip Buckner MD Final 592.0 KIDNEY CALCULUS 04/25/2018 Thu Mccoy MD E66.01 Obesity Class III (BMI >=40) 04/25/2018 Thu Mccoy MD Z68.41 BMI 40-44.9 04/25/2018 Thu Mccoy MD Z87.442 Hx of kidney stone 12/24/2018 P E119 Type 2 diabetes mellitus without complications 12/24/2018 S E559 Vitam in D deficiency, unspecified 05/21/2019 P L0291 Cuta neous abscess, unspecified 05/23/2019 P L0291 Cuta neous abscess, unspecified 07/09/2019 MICKEY CHAVIRA DPM Ot Z01.818 ENCOUNTER FOR OTHER PREPROCEDURAL EXAMIN 07/10/2019 MICKEY CHAVIRA DPM, Ot Z01.818 ENCOUNTER FOR OTHER PREPROCEDURAL EXAMIN Procedures Code Description [place] [address] CORA SYBIL OF KIDNEY STONE Skip Buckner MD 07/25/2012 Results Test Result Range Methicillin resistant Staphylococcus aur eus (MRSA) screening culture - 07/09/19 14:30 Methicillin resistant Staphylococcus aureus (MRSA) scr eening culture NEG NRG Capillary blood glucose measurement by g lucometer (mass/volume) - 07/18/19 06:42 Capillary blood glucose measurement by glucometer (mas s/volume) 123 mg/dL 70-110 Radiology Report from [id number] on 013 15:52:00 Final ReportADMITTING DIAGNOSIS: Kidney Stones kidney stonesNEPHROSTOGRAM RT - 07/25/2012 [facility]: INDICATION:Large right renal calculi with intermittent obstruction.RESULT:The patient''s back was sterilely prepped and draped. Sheunderwent conscious sedation with intravenous Versed andfentanyl under my direct supervision. 1% lidocaine was used forlocal anesthesia. Initially, a 21-gauge needle was advancedtowards a small calculus in the upper part of the lower pole.The area was quite fibrotic and the needle kept on beingdeflected away from the calculus. Attempts were made with r45-qxfzz needle to puncture the lateral aspect of the largecalculus in the renal pelvis. Fibrotic changes also deflectedthis needle. A 20-gauge needle was then advanced against thiscalculus. Air was injected. A lower pole posterior calyx wasthen entered with a 20-gauge needle. A guidewire was advancedover this and an AccuStick set was advanced over it. Contrastwas injected which demonstrated this to be in the ureter. Thetract was then dilated to an 8 Andorran with a 6 Andorran longsheath placed for the nephrolithotomy which is to follow.IMPRESSION: Successful access of a lower pole posterior calyx for thepatient''s nephrolithotomy.Dictated on workstation # [id number] BY: IOANA PARKS M.D., ELECTRONICALLY SIGNED BY: IOANA PARKS M.D., D Jul 25 2012 1:43PT JM : Jul 25 2012 3:50PS Jul 25 2012 3:50P Radiology Report from [id number] on 013 15:53:00 Final ReportADMITTING DIAGNOSIS: Kidney Stones nephrolithotomyNEPHROSTOGRAM RT - 07/25/2012 [facility] RESULT: INDICATION: Large right renal calculiRESULT: After undergoing general anesthesia the patient''s backwas sterilely prepped and draped. 2 guidewires were advancedthrough the sheath which ran from the right lower pole calyx andinto the ureter. The wires were advanced into the urinarybladder. Over one of the wires a 10 mm NephroMax balloon wasadvanced to the renal pelvis. This was inflated and theNephroMax sheath was advanced over this. Dr. Buckner thenproceeded to remove the calculi in the right kidney. A 10 Frenchnephrostomy tube was then advanced over one of the guidewiresand coiled within the renal pelvis. Contrast was injected toconfirm position.IMPRESSION: Successful renal tract dilatation with placement ofa [address] Andorran [address] after [address] Buckner removed thecalculi.Dictated on workstation # [id number] BY: IOANA PARKS M.D., ELECTRONICALLY SIGNED BY: IOANA PARKS M.D., Shruti Jul 25 2012 2:06PT CELESTINE: Jul 25 2012 3:50PS Jul 25 2012 3:50P Encounters ACCT No. Visit Date/Time Discharge Status Pt. Type Provider Facility Loc./Unit Complaint [id number] 05/21/2019 17:07:00 Document Registration [id number] 04/28/2019 08:10:14 Document Registration [id number] 02/12/2019 08:07:11 Document Registration [id number] 12/24/2018 08:06:38 Document Registration [id number] 10/09/2018 08:38:31 Document Registration [id number] 08/29/2018 08:33:52 Document Registration [id number] 08/09/2018 12:50:20 Document Registration [id number] 07/24/2018 10:59:22 Document Registration [id number] 07/16/2018 08:10:19 Document Registration [id number] 05/09/2018 12:56:32 Document Registration [id number] 05/09/2018 08:10:47 Document Registration [id number] 04/02/2018 13:39:22 Document Registration [id number] 04/02/2018 09:48:59 Document Registration [id number] 12/06/2017 07:02:11 Document Registration [id number] 07/16/2017 14:52:15 Document Registration [id number] 07/25/2012 06:23:00 07/27/19 13 12:20:00 DIS Outpatient Skip Buckner MD [facility] on [address] J7W [id number] 11/21/2018 12:17:05 9 16:40:00 DIS Outpatient MCCOY, ALANNA J [facility] GABBIE Surgery ops [id number] 11/21/2018 12:39:22 Document Registration [id number] 11/29/2018 20:07:12 ACT Unknown Thu Mccoy MD [id number] 07/18/2019 06:11:00 020 11:10:00 DIS Outpatient CHAVIRAMICKEY ZHOU DPM [facility] SDC EXOSTOSIS LEFT FOOT [id number] 07/09/2019 14:07:00 15:30:00 DIS Outpatient CHAVIRAMICKEY ZHOU DPM [facility] PREOP EXOSTOSIS LEFT FOOT [id number] 02/08/2016 14:03:02 ACT Unknown [id number] 05/21/2019 16:00:47 05/21/2019 23:59: 59 CLS Outpatient Walker, Cathi [id number] 05/08/2018 14:28:13 05/08/2018 23:59: 59 CLS Outpatient Jaclyn Vasquez [id number] 04/02/2018 09:56:47 04/02/2018 23:59: 59 CLS Outpatient Walker, Cathi [id number] 06/04/2017 11:22:51 06/04/2017 23:59: 59 CLS Outpatient Walker, Cathi [id number] 12/14/2016 10:33:47 12/14/2016 23:59: 59 CLS Outpatient Walker, Cathi [id number] 08/17/2016 14:49:12 08/17/2016 23:59: 59 CLS Outpatient Walker, Cathi [id number] 08/03/2016 10:47:48 08/03/2016 23:59: 59 CLS Outpatient Walker, Cathi [id number] 02/03/2016 08:39:34 02/03/2016 23:59: 59 CLS Outpatient Austyn Day [id number] 01/07/2016 09:57:38 01/07/2016 23:59: 59 CLS Outpatient Austyn Day [id number] 06/24/2015 17:54:00 06/24/2015 23:59: 59 CLS Outpatient Karlene Ramirez [id number] 06/08/2015 14:54:02 06/08/2015 23:59: 59 CLS Outpatient Walker, Cathi [id number] 06/03/2015 09:33:31 06/03/2015 23:59: 59 CLS Outpatient Walker, Cathi [id number] 12/14/2014 22:29:16 12/14/2014 23:59: 59 CLS Outpatient Scott, Shade P [id number] 12/14/2014 21:44:21 12/14/2014 23:59: 59 CLS Outpatient Scott, Shade P [id number] 09/03/2014 12:04:40 09/03/2014 23:59: 59 CLS Outpatient Andrews, Cathi [id number] 07/29/2014 14:28:35 07/29/2014 23:59: 59 CLS Outpatient Scott, Shade P [id number] 04/27/2014 14:02:16 04/27/2014 23:59: 59 CLS Outpatient Scott, Shade P [id number] 03/30/2014 09:09:35 03/30/2014 23:59: 59 CLS Outpatient Scott, Shade P [id number] 02/26/2014 11:39:11 02/26/2014 23:59: 59 CLS Outpatient Jared Skinner [id number] 11/25/2013 18:40:51 11/25/2013 23:59: 59 CLS Outpatient Walker, Cathi [id number] 06/30/2013 09:53:20 06/30/2013 23:59: 59 CLS Outpatient Walker Cathi [id number] 06/24/2013 10:02:42 06/24/2013 23:59: 59 CLS Outpatient Cathi Sparrow
--- OUTSIDE RECORDS SUMMARY | 2019-07-19 22:58 | XMS REPORT | Clinical Summary ---
Author Author Admin, Kendra Flowers BOND Address Unknown Phone Unavailable Allergies, Adverse Reactions, [...] Instructions Start Date Stop Date Generic Name [facility] Status Provider Patient Instruction IRBESARTAN-HYDROCHLOROTHIAZIDE 150-12.5 MG ORAL TABS 1 tab b y mouth daily IRBESARTAN-HYDROCHLOROTHIAZIDE 05395345661 Active Thu Reese MD Active AMLODIPINE BESYLATE 5 MG TABS 1 tablet by mouth daily AMLODIPINE BESYLATE 94445918211 Active Thu Reese MD Active VIIBRYD 40 MG ORAL TABS 1 tab by mouth daily LAZODONE HCL 99363453955 Active Thu Reese MD Active ACID CONTROLLER 10 MG ORAL TABS 2 tabs by mouth daily FAMOTIDINE 51831636951 Active Thu Reese MD Active ALEVE 220 MG TAB NAPROXEN SODIUM 06089179820 No Longer Active Thu Reese MD Active SIMVASTATIN 40 MG TABS 1 tab daily at bedtime S IMVASTATIN 44814717649 No Longer Active Thu Reese MD Active PROZAC 40 MG CAPS take one cap po daily FLUOXET INE HCL 69645192280 No Longer Active Thu Reese MD Active DICLOFENAC SODIUM 75 MG TBEC Take one by mouth daily 2 DICLOFENAC SODIUM 53991321892 No Longer Active Thu Reese MD Active ULTRAM 50 MG TABS 1 tab po tid prn pain TRAMADO L HCL 71881733818 No Longer Active Thu Reese MD Active COZAAR 50 MG TABS take one tab po daily L OSARTAN POTASSIUM 48856338831 No Longer Active Thu Reese MD Acti ve MEDROL (EUNICE) 4 MG TABS take as directed M ETHYLPREDNISOLONE 12887152721 No Longer Active Thu Reese MD Acti ve ZITHROMAX Z-EUNICE 250 MG TABS take as directed AZ ITHROMYCIN 03195052438 No Longer Active Thu Reese MD Active BYSTOLIC 5 MG TABS take on tab po daily NEBIVOL OL HCL 08003295826 No Longer Active Vero Pool PA Active LISINOPRIL 10 MG TABS take one tab po daily LIS INOPRIL 17981762842 No Longer Active Vero Pool PA Active LISINOPRIL 10 MG TABS take one tab po daily LISINOPRIL 10 MG TABS 219308 LISINOPRIL Inactive BYSTOLIC 5 MG TABS take on tab po daily B YSTOLIC 5 MG TABS NEBIVOLOL HCL Inactive ZITHROMAX Z-EUNICE 250 MG TABS take as directed 1 ZITHROMAX Z- EUNICE 250 MG TABS 5091900 AZITHROMYCIN Inactive MEDROL (EUNICE) 4 MG TABS take as directed M EDROL (EUNICE) 4 MG TABS 464742 METHYLPREDNISOLONE Inactive COZAAR 50 MG TABS take one tab po daily COZAAR 50 MG TABS 796108 LOSARTAN POTASSIUM Inactive ULTRAM 50 MG TABS 1 tab po tid prn pain ULTRAM 50 MG TABS 812606 TRAMADOL HCL Inactive DICLOFENAC SODIUM 75 MG TBEC Take one by mouth daily 2 DICLOFENAC SODIUM 75 MG TBEC 169444 DICLOFENAC SODIUM Inactive PROZAC 40 MG CAPS take one cap po daily PROZAC 40 MG CAPS 225007 FLUOXETINE HCL Inactive SIMVASTATIN 40 MG TABS 1 tab daily at bedtime SIMVASTATIN 40 MG TABS 888126 SIMVASTATIN Inactive ALEVE 220 MG TAB ALEVE 220 MG TAB 657374 NAP ROXEN SODIUM Inactive Advance Directives Directive Description Start Date PERMISSION TO SHARE Vital Signs Date Name Value Unit Range Description blood pressure, diastolic - 8462-4 70 mm[Hg] BP chaudhary blood pressure, systolic - 8480-6 124 mm[Hg] [...] negative Encounters Code Encounter Date Provider Facility CPT-82294 Level 4 New Patient 17:45:36 CDT Thu mojica MD [facility] CPT-78587 Level 3 Est. Patient 09:53:46 CDT Vero Dunbar [facility] CPT-48691 Level 3 Est. Patient 09:28:28 CDT Vero Dunbar [facility] CPT-72994 Level 3 New Patient 11:25:49 CDT Vero Dunbar [facility] [place] Procedures Code Procedure Name Date Entry Date Standard Desc ription CPT-28619 Cystoscopy W/rem FB 13:59:34 CDT CPT-02013 Postop F/U Visit 13:59:29 CDT CPT-92127 Abd single AP View - XRAY USE ONLY 13:19:56 CDT CPT-46019 Abd single AP View - XRAY USE ONLY 11:48:17 CDT CPT-22932 Venipuncture Draw Fee 11:25:49 CDT
--- OUTSIDE RECORDS SUMMARY | 2019-07-19 22:58 | XMS REPORT | Clinical Summary ---
Author Author Admin, Kendra Flowers [employer] Address Unknown Phone Unavailable Allergies, Adverse Reactions, [...] elsewhere classified COUGH 786.2 Active Vero Pool ENRY Cough Flank pain, right 789.09 Active Thu Reese MD Abdominal pain, other specified site; multiple sites Renal calculus, right 592.0 Active Thu alvarez MD Calculus of kidney Medication List Medication Instructions Start Date Stop Date Generic Name ND Status Provider Patient Instruction IRBESARTAN-HYDROCHLOROTHIAZIDE 150-12.5 MG ORAL TABS 1 tab b y mouth daily IRBESARTAN-HYDROCHLOROTHIAZIDE 99699039375 Active Thu Reese MD Active AMLODIPINE BESYLATE 5 MG TABS 1 tablet by mouth daily AMLODIPINE BESYLATE 40449006495 Active Thu Reese MD Active VIIBRYD 40 MG ORAL TABS 1 tab by mouth daily LAZODONE HCL 25852837752 Active Thu Reese MD Active ACID CONTROLLER 10 MG ORAL TABS 2 tabs by mouth daily FAMOTIDINE 87220772353 Active Thu Reese MD Active ALEVE 220 MG TAB NAPROXEN SODIUM 97274989098 No Longer Active Thu Reese MD Active SIMVASTATIN 40 MG TABS 1 tab daily at bedtime S IMVASTATIN 44714289866 No Longer Active Thu Reese MD Active PROZAC 40 MG CAPS take one cap po daily FLUOXET INE HCL 59679703879 No Longer Active Thu Reese MD Active DICLOFENAC SODIUM 75 MG TBEC Take one by mouth daily 2 DICLOFENAC SODIUM 18383169123 No Longer Active Thu Reese MD Active ULTRAM 50 MG TABS 1 tab po tid prn pain TRAMADO L HCL 29205980226 No Longer Active Thu Reese MD Active COZAAR 50 MG TABS take one tab po daily L OSARTAN POTASSIUM 96620400052 No Longer Active Thu Reese MD Acti ve MEDROL (EUNICE) 4 MG TABS take as directed M ETHYLPREDNISOLONE 47384546019 No Longer Active Thu Reese MD Acti ve ZITHROMAX Z-EUNICE 250 MG TABS take as directed AZ ITHROMYCIN 08540100558 No Longer Active Thu Reese MD Active BYSTOLIC 5 MG TABS take on tab po daily NEBIVOL OL HCL 50759118092 No Longer Active Vero GABRIEL Active LISINOPRIL 10 MG TABS take one tab po daily LIS INOPRIL 25614399175 No Longer Active Vero GABRIEL Active LISINOPRIL 10 MG TABS take one tab po daily LISINOPRIL 10 MG TABS 471069 LISINOPRIL Inactive BYSTOLIC 5 MG TABS take on tab po daily B YSTOLIC 5 MG TABS NEBIVOLOL HCL Inactive ZITHROMAX Z-EUNICE 250 MG TABS take as directed 1 ZITHROMAX Z- EUNICE 250 MG TABS 9229555 AZITHROMYCIN Inactive MEDROL (EUNICE) 4 MG TABS take as directed M EDROL (EUNICE) 4 MG TABS 398824 METHYLPREDNISOLONE Inactive COZAAR 50 MG TABS take one tab po daily COZAAR 50 MG TABS 315187 LOSARTAN POTASSIUM Inactive ULTRAM 50 MG TABS 1 tab po tid prn pain ULTRAM 50 MG TABS 086757 TRAMADOL HCL Inactive DICLOFENAC SODIUM 75 MG TBEC Take one by mouth daily 2 DICLOFENAC SODIUM 75 MG TBEC 962940 DICLOFENAC SODIUM Inactive PROZAC 40 MG CAPS take one cap po daily PROZAC 40 MG CAPS 591796 FLUOXETINE HCL Inactive SIMVASTATIN 40 MG TABS 1 tab daily at bedtime SIMVASTATIN 40 MG TABS 831047 SIMVASTATIN Inactive ALEVE 220 MG TAB ALEVE 220 MG TAB 391431 NAP ROXEN SODIUM Inactive Advance Directives Directive Description Start Date PERMISSION TO SHARE Encounters Code Encounter Date Provider Facility CPT-79049 Level 4 New Patient 17:45:36 CDT Thu mojica MD [facility] CPT-90198 Level 3 Est. Patient 09:53:46 CDT Vero GABRIEL [facility] CPT-13197 Level 3 Est. Patient 09:28:28 CDT [facility] CPT-10469 Level 3 New Patient 11:25:49 CDT Vero GABRIEL [facility] [place] Procedures Code Procedure Name Date Entry Date Standard Desc ription CPT-20088 Cystoscopy W/rem FB 13:59:34 CDT CPT-71699 Postop F/U Visit 13:59:29 CDT CPT-42930 Abd single AP View - XRAY USE ONLY 13:19:56 CDT CPT-61593 Abd single AP View - XRAY USE ONLY 11:48:17 CDT CPT-98702 Venipuncture Draw Fee 11:25:49 CDT
--- OUTSIDE RECORDS SUMMARY | 2019-07-19 22:58 | XMS REPORT | Clinical Summary ---
Author Author Admin, Kendra Flowers [facility] Address Unknown Phone Unavailable Allergies, [...] Start Date Stop Date Generic Name [facility] Status Provider Patient Instruction IRBESARTAN-HYDROCHLOROTHIAZIDE 150-12.5 MG ORAL TABS 1 tab b y mouth daily IRBESARTAN-HYDROCHLOROTHIAZIDE 01829139434 Active Thu Reese MD Active AMLODIPINE BESYLATE 5 MG TABS 1 tablet by mouth daily AMLODIPINE BESYLATE 99090559929 Active Thu Reese MD Active VIIBRYD 40 MG ORAL TABS 1 tab by mouth daily LAZODONE HCL 65566123868 Active Thu Reese MD Active ACID CONTROLLER 10 MG ORAL TABS 2 tabs by mouth daily FAMOTIDINE 91990960902 Active Thu Reese MD Active ALEVE 220 MG TAB NAPROXEN SODIUM 01982265675 No Longer Active Thu Reese MD Active SIMVASTATIN 40 MG TABS 1 tab daily at bedtime S IMVASTATIN 21228350829 No Longer Active Thu Reese MD Active PROZAC 40 MG CAPS take one cap po daily FLUOXET INE HCL 56873360501 No Longer Active Thu Reese MD Active DICLOFENAC SODIUM 75 MG TBEC Take one by mouth daily 2 DICLOFENAC SODIUM 10141697479 No Longer Active Thu Reese MD Active ULTRAM 50 MG TABS 1 tab po tid prn pain TRAMADO L HCL 37467179490 No Longer Active Thu Reese MD Active COZAAR 50 MG TABS take one tab po daily L OSARTAN POTASSIUM 66233429305 No Longer Active Thu Reese MD Acti ve MEDROL (EUNICE) 4 MG TABS take as directed M ETHYLPREDNISOLONE 91258539322 No Longer Active Thu Reese MD Acti ve ZITHROMAX Z-EUNICE 250 MG TABS take as directed AZ ITHROMYCIN 34458079789 No Longer Active Thu Reese MD Active BYSTOLIC 5 MG TABS take on tab po daily NEBIVOL OL HCL 29818854888 No Longer Active Vero Dunbar PA Active LISINOPRIL 10 MG TABS take one tab po daily LIS INOPRIL 23367488619 No Longer Active Vero Dunbar PA Active LISINOPRIL 10 MG TABS take one tab po daily LISINOPRIL 10 MG TABS 838355 LISINOPRIL Inactive BYSTOLIC 5 MG TABS take on tab po daily B YSTOLIC 5 MG TABS NEBIVOLOL HCL Inactive ZITHROMAX Z-EUNICE 250 MG TABS take as directed 1 ZITHROMAX Z- EUNICE 250 MG TABS 9674619 AZITHROMYCIN Inactive MEDROL (EUNICE) 4 MG TABS take as directed M EDROL (EUNICE) 4 MG TABS 278519 METHYLPREDNISOLONE Inactive COZAAR 50 MG TABS take one tab po daily COZAAR 50 MG TABS 002084 LOSARTAN POTASSIUM Inactive ULTRAM 50 MG TABS 1 tab po tid prn pain ULTRAM 50 MG TABS 483188 TRAMADOL HCL Inactive DICLOFENAC SODIUM 75 MG TBEC Take one by mouth daily 2 DICLOFENAC SODIUM 75 MG TBEC 110017 DICLOFENAC SODIUM Inactive PROZAC 40 MG CAPS take one cap po daily PROZAC 40 MG CAPS 585086 FLUOXETINE HCL Inactive SIMVASTATIN 40 MG TABS 1 tab daily at bedtime SIMVASTATIN 40 MG TABS 347611 SIMVASTATIN Inactive ALEVE 220 MG TAB ALEVE 220 MG TAB 040495 NAP ROXEN SODIUM Inactive Advance Directives Directive Description Start Date PERMISSION TO SHARE Encounters Code Encounter Date Provider Facility CPT-59719 Level 4 New Patient 17:45:36 CDT Thu mojica MD [facility] CPT-97795 Level 3 Est. Patient 09:53:46 CDT Vero Dunbar [email or web address]] Eddie Hunter CPT-92521 Level 3 Est. Patient 09:28:28 CDT Vero GABRIEL [facility] CPT-34108 Level 3 New Patient 11:25:49 CDT Vero GABRIEL [facility] Procedures Code Procedure Name Date Entry Date Standard Desc ription CPT-15957 Abd single AP View - XRAY USE ONLY 11:48:17 CDT CPT-32827 Venipuncture Draw Fee 11:25:49 CDT
--- OUTSIDE RECORDS SUMMARY | 2019-07-19 22:58 | XMS REPORT | Clinical Summary ---
Author Author Admin, Kendra Flowers [employer] Address Unknown Phone Unavailable Allergies, Adverse [...] 1 tab b y mouth daily IRBESARTAN-HYDROCHLOROTHIAZIDE 43222731285 Active Thu Reese MD Active AMLODIPINE BESYLATE 5 MG TABS 1 tablet by mouth daily AMLODIPINE BESYLATE 55505737553 Active Thu Reese MD Active VIIBRYD 40 MG ORAL TABS 1 tab by mouth daily LAZODONE HCL 07446888638 Active Thu Reese MD Active ACID CONTROLLER 10 MG ORAL TABS 2 tabs by mouth daily FAMOTIDINE 43057904997 Active Thu Reese MD Active ALEVE 220 MG TAB NAPROXEN SODIUM 02441541844 No Longer Active Thu Reese MD Active SIMVASTATIN 40 MG TABS 1 tab daily at bedtime S IMVASTATIN 42624335172 No Longer Active Thu Reese MD Active PROZAC 40 MG CAPS take one cap po daily FLUOXET INE HCL 67482636800 No Longer Active Thu Reese MD Active DICLOFENAC SODIUM 75 MG TBEC Take one by mouth daily 2 DICLOFENAC SODIUM 39926131655 No Longer Active Thu Reese MD Active ULTRAM 50 MG TABS 1 tab po tid prn pain TRAMADO L HCL 84016436259 No Longer Active Thu Reese MD Active COZAAR 50 MG TABS take one tab po daily L OSARTAN POTASSIUM 76803979553 No Longer Active Thu Reese MD Acti ve MEDROL (EUNICE) 4 MG TABS take as directed M ETHYLPREDNISOLONE 59952929777 No Longer Active Thu Reese MD Acti ve ZITHROMAX Z-EUNICE 250 MG TABS take as directed AZ ITHROMYCIN 26506355638 No Longer Active Thu Reese MD Active BYSTOLIC 5 MG TABS take on tab po daily NEBIVOL OL HCL 48842600589 No Longer Active Vero GABRIEL Active LISINOPRIL 10 MG TABS take one tab po daily LIS INOPRIL 44202286481 No Longer Active Vero Dunbar PA Active LISINOPRIL 10 MG TABS take one tab po daily LISINOPRIL 10 MG TABS 792630 LISINOPRIL Inactive BYSTOLIC 5 MG TABS take on tab po daily B YSTOLIC 5 MG TABS NEBIVOLOL HCL Inactive ZITHROMAX Z-EUNICE 250 MG TABS take as directed 1 ZITHROMAX Z- EUNICE 250 MG TABS 1267946 AZITHROMYCIN Inactive MEDROL (EUNICE) 4 MG TABS take as directed M EDROL (EUNICE) 4 MG TABS 670910 METHYLPREDNISOLONE Inactive COZAAR 50 MG TABS take one tab po daily COZAAR 50 MG TABS 241392 LOSARTAN POTASSIUM Inactive ULTRAM 50 MG TABS 1 tab po tid prn pain ULTRAM 50 MG TABS 678451 TRAMADOL HCL Inactive DICLOFENAC SODIUM 75 MG TBEC Take one by mouth daily 2 DICLOFENAC SODIUM 75 MG TBEC 821675 DICLOFENAC SODIUM Inactive PROZAC 40 MG CAPS take one cap po daily PROZAC 40 MG CAPS 874654 FLUOXETINE HCL Inactive SIMVASTATIN 40 MG TABS 1 tab daily at bedtime SIMVASTATIN 40 MG TABS 649022 SIMVASTATIN Inactive ALEVE 220 MG TAB ALEVE 220 MG TAB 943672 NAP ROXEN SODIUM Inactive Advance Directives Directive Description Start Date PERMISSION TO SHARE Encounters Code Encounter Date Provider Facility CPT-88790 Level 4 New Patient 17:45:36 CDT Thu mojica MD [facility] CPT-82072 Level 3 Est. Patient 09:53:46 CDT Vero GABRIEL [facility] CPT-10722 Level 3 Est. Patient 09:28:28 CDT [facility] CPT-74043 Level 3 New Patient 11:25:49 CDT Vero GABRIEL [facility] Procedures Code Procedure Name Date Entry Date Standard Desc ription CPT-31443 Cystoscopy W/rem FB 13:59:34 CDT CPT-33265 Postop F/U Visit 13:59:29 CDT CPT-22410 Abd single AP View - XRAY USE ONLY 13:19:56 CDT CPT-21881 Abd single AP View - XRAY USE ONLY 11:48:17 CDT CPT-18238 Venipuncture Draw Fee 11:25:49 CDT
== END 2019-07-18 11:10 | disposition home or self-care (01) ==
LOC: SDC 06:11
PROVIDERS: ATTEND Podiatrist Foot Surgery
DX: M89.8X7 Other specified disorders of bone, ankle and foot (principal); I10 Essential (primary) hypertension; E78.5 Hyperlipidemia, unspecified; G47.33 Obstructive sleep apnea (adult) (pediatric); G43.909 Migraine, unspecified, not intractable, without status migrainosus; F41.9 Anxiety disorder, unspecified; F32.9 Major depressive disorder, single episode, unspecified; E11.9 Type 2 diabetes mellitus without complications; F17.210 Nicotine dependence, cigarettes, uncomplicated; Z79.899 Other long term (current) drug therapy; Z79.4 Long term (current) use of insulin; Z99.89 Dependence on other enabling machines and devices; Z90.710 Acquired absence of both cervix and uterus; Z90.89 Acquired absence of other organs
CPT/HCPCS: 73620; 82962